=== PATIENT | male | born 1955 | race Caucasian/White ===

== ENCOUNTER → 2022-04-14 10:01 | Outpatient (CLI) | payer MEDICARE, SELFPAY | PROVIDERS: Referring Provider Internal Medicine Cardiovascular Disease; Visit Provider Internal Medicine Cardiovascular Disease | DX: R94.31 Abnormal electrocardiogram [ECG] [EKG] (principal) ==

== ENCOUNTER → 2022-07-02 09:02 | Outpatient (CLI) | payer MEDICARE, SELFPAY ==
--- NOTE | 2022-07-02 09:06 | DI.ECHO.S_ITS ---
[facility] +---------+ : : [address] : [address] [place] : : : : [id number] : : : : Phone: [phone]+ Echocardiogram Report + + :Name: WEST MEDINA Study Date: 07/02/2022 Height: 67 in : :[facility] ReadingLocation: Weight: 121 lb : : Gender: Male BSA: 1.6 m2 : :: 1955 Age: 66 yrs BP: 115/80 mmHg: :Reason For Study: Pronlonged Q-T Interval : :Ordering Physician: XAVIER, : :TITUS Performed By: Lon Taylor : :Referring: TITUS FRY : + + Interpretation Summary 1) Normal left ventricular thickness, size, wall motion, and systolic function (EF 55-60%). 2) Normal right ventricular size and function. 3) No significant valvular abnormalities. 4) No prior Echo available for comparison. Procedure: A two-dimensional transthoracic echocardiogram with color flow and Doppler was performed. The study quality was technically adequate. There is no prior echocardiogram noted for this patient. Left Ventricle: The left ventricle is normal in size and wall thickness. Left ventricular systolic function is normal. The ejection fraction is estimated to be 55-60%. There are no focal wall motion abnormalities. Diastolic parameters suggest a relaxation abnormality of the left ventricle, consistent with probable normal filling pressures. Right Ventricle: The right ventricle is normal in size and function. Atria: Both atria are normal in size. The interatrial septum grossly appears intact with no obvious evidence for an atrial septal defect. Mitral Valve: The mitral valve is normal in structure and function. There is no mitral regurgitation noted. Aortic Valve: The aortic valve is normal in structure and function. There is no aortic valve stenosis. No aortic regurgitation is present. Tricuspid Valve: The tricuspid valve is normal in structure and function. There is trace tricuspid regurgitation. Pulmonary artery pressures cannot be estimated because of the lack of a measurable TR jet velocity. Pulmonic Valve: The pulmonic valve is not well seen, but is grossly normal. There is no pulmonic valvular regurgitation. Great Vessels: The aortic root is normal size. The ascending aorta could not be visualized. The IVC is of normal diameter and collapses greater than 50% with a sniff. This suggests a low right atrial pressure of 3 mm Hg. Pericardium/ Pleura There is no pericardial effusion. There is no pleural effusion. MMode/2D Measurements & Calculations LVIDd: 4.6 cm LVOT diam: 2.3 cm LVIDs: 3.2 cm Ao root diam: 3.3 cm FS: 29.4 % IVSd: 0.87 cm LVPWd: 0.63 cm LV longo. diameter/BSA (cm/m^2): 2.8 LV sys. diameter/BSA (cm/m^2): 2.0 LA A2 area: 16.1 cm2 RA long axis: 4.3 cm LA A4 area: 14.4 cm2 RA area: 11.4 cm2 LA length (vol): 4.0 cm RA vol: 25.8 ml LA vol: 48.4 ml RA : 15.8 ml/m2 LA vol index: 29.6 ml/m2 TAPSE: 2.9 cm Doppler Measurements & Calculations Ao V2 max: 128.5 cm/sec LVOT Max Scottie: 112.1 cm/sec Ao V2 mean: 86.8 cm/sec LV V1 max P.0 mmHg Ao max P.6 mmHg LV V1 VTI: 21.3 cm Ao mean P.4 mmHg KATIE(I,D): 3.6 cm2 Ao V2 VTI: 24.3 cm KATIE(V,D): 3.5 cm2 sev ratio: 0.88 KATIE indexed to BSA (cm^2/m^2): 2.2 MV E max scottie: 76.7 cm/sec SV(LVOT): 86.4 ml MV A max scottie: 81.5 cm/sec MV E/A: 0.94 Med Peak E' Scottie: 7.1 cm/sec E/E' med: 10.9 Lat Peak E' Scottie: 7.5 cm/sec E/E' lat: 10.2 E/e' average: 10.5 MV dec time: 0.28 sec Reading Physician:02:29 PM
== END ==
PROVIDERS: Referring Provider Internal Medicine Cardiovascular Disease; Visit Provider Internal Medicine Cardiovascular Disease
DX: R94.31 Abnormal electrocardiogram [ECG] [EKG] (principal)
CPT/HCPCS: 93306

== ENCOUNTER 2023-05-05 13:35 | Emergency (ER) | payer MEDICARE, SELFPAY ==
[2023-05-05] VITALS (128 sets, daily range): BP systolic 74–131; BP diastolic 44–70; PULSE 48–74; RESP 11–40; TEMP 36.8; O2SAT 84–100; BMI 19.8
--- NOTE | 2023-05-05 14:10 | DI.CT.S_ITS ---
PROCEDURE: CT ANGIO CHEST ABDOMEN PELVIS INDICATIONS: weak, back pain acute on chronic, hypotensive TECHNIQUE: Precontrast 5 mm thick sections acquired from the lung apices to the iliac crests. After the administration of intravenous contrast, 2.5 mm thick sections again acquired from the lung apices to the iliac crests. Maximum intensity projection (MIP) oblique sagittal and coronal reformats were then acquired. For radiation dose reduction, the following was used: automated exposure control. COMPARISON: MRI 01/06/2023. FINDINGS: Image quality: Excellent. AORTA: Intramural hematoma: Absent Dissection: Absent Calcified and noncalcified plaques throughout the aorta and branching vessels. Moderate stenosis of the proximal left renal artery. Mild to moderate stenosis of the takeoff of the celiac trunk and superior mesenteric artery with normal opacification distally. Mild narrowing of the proximal left common iliac artery. Focal irregularities of the left external iliac artery with approximately 50 percent stenosis. CHEST: Lungs and pleura: No acute airspace opacities. Biapical pleuroparenchymal scarring. Upper lobe predominant centrilobular and paraseptal emphysematous changes. Mild bibasilar subsegmental atelectasis. Right lower lobe 3 millimeter nodule (6/154). Additional scattered pulmonary nodules measuring 3 millimeters or less. No pleural effusions or pneumothorax. Central and peripheral airways are patent and normal in caliber. Mediastinum: Heart size is normal. Mild coronary artery calcifications. No pericardial effusion. No mediastinal or hilar adenopathy by size criteria. Central pulmonary arteries are normal in size. Esophagus is normal in caliber. Small hiatal hernias. Bones and chest wall: No axillary adenopathy by size criteria. Thyroid gland is normal . No suspicious bony lesions. No vertebral body compression fractures. ABDOMEN: Solid organs: Liver is normal in size and enhancement. Gallbladder is mildly distended without calcified stone. . Biliary system is non dilated. Pancreas enhances normally. Spleen is normal in size and enhancement. No adrenal nodules. Both kidneys are normal in size and enhancement, without hydronephrosis. Renal subcentimeter hypodensities. Peritoneum and bowel: No free fluid or air. Bowel loops are normal in caliber and wall thickness. Nodes and vessels: No retroperitoneal or mesenteric adenopathy by size criteria. Inferior vena cava is normal in morphology. Miscellaneous: No ventral hernias. PELVIS: Genitourinary: Bladder wall thickness is normal. Miscellaneous: Small right inguinal hernia containing fat. No adenopathy. No ventral hernias. Bones: No suspicious bony lesions. Diffusely decreased osseous mineralization. Multilevel degenerative changes of the spine. Moderate compression deformity of L4 is stable compared to 01/06/2023. Mild anterior wedging of T12. Moderate anterior wedging of T6. IMPRESSION: 1. No aortic dissection or intramural hematoma. No acute aortic pathology. 2. Calcified and noncalcified plaques throughout the aorta and branching vessels. 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 3. Scattered pulmonary micro nodules measuring up to 3 millimeters. Per Fleischner criteria, patient is high risk, [address] is recommended, if patient is low risk, no follow-up CT is needed. Upper lobe predominant paraseptal and centrilobular emphysematous changes. 4. Degenerative changes of the spine and diffusely decreased osseous mineralization. Multiple compression deformities involving T6, T12 and L4. T12 and L4 stable compared to MRI 01/06/2023. 5. Additional findings as described above. Dictated by: Quoc Gonzales M.D. on 05/05/2023 at 15:08 Approved by: Quoc Gonzales M.D. on 05/05/2023 at 15:23
--- NOTE | 2023-05-05 14:11 | DI.RAD.S_ITS ---
PROCEDURE: XR CHEST 1V INDICATIONS: hypotension TECHNIQUE: One view of the chest was acquired. COMPARISON: [facility], CT, CT ANGIO CHEST ABDOMEN PELVIS, 05/05/2023, 14:27. FINDINGS: Surgical changes and devices: None. Lungs and pleura: Lungs are clear. No pleural effusions or pneumothorax. The lungs have emphysematous changes. Interstitial prominence is unchanged compared to the prior study and is likely chronic. Mediastinum: Mediastinal contours appear normal. Heart size is normal. Bones and chest wall: No suspicious bony lesions. Overlying soft tissues appear unremarkable. IMPRESSION: 1. No acute cardiopulmonary abnormality. 2. Chronic interstitial markings consistent with COPD Dictated by: Severiano Hernandez M.D. on 05/05/2023 at 15:59 Approved by: Severiano Hernandez M.D. on 05/05/2023 at 16:02
--- NOTE | 2023-05-05 14:12 | ED_ITS ---
HPI - Weakness <Anjana Tinoco DO - Last Filed: 05/06/23 09:50> General Chief complaint: Weakness Stated complaint: Weakness T-2 Time Seen by Provider: 05/05/23 14:10 Source: patient, EMS, RN notes reviewed and old records reviewed Mode of arrival: EMS Limitations: no limitations History of Present Illness HPI Narrative: This is a 67-year-old male with history of chronic methadone use, hypertension, BPH with complaint of weakness. Patient states he is had acute on chronic back pain today. He was sent from [facility] while at clinic where he receives his methadone because they noticed he was sort of walking off balance. The patient's blood pressure in the field with EMS was 70 systolic, 70-80 systolic here upon arrival. Patient denies any syncope today but states last night he went sat on the toilet and then in the morning woke up to his family knocking on the door to ask how long he would be. Patient states he was still seated on the toilet. Patient states he has not had any other episodes. He does feel little lightheaded. He denies any headache. No vision changes. No chest pain or pressure. No shortness of breath. No nausea or vomiting. He states he is chronic back pain that is a little bit worse today describes it as lower back. He denies any abdominal pain. Patient states pain sometimes radiates into the legs. Denies numbness, tingling or weakness. No loss of bowel or bladder control. No diarrhea constipation. No dysuria urgency or frequency. Patient states he is had prior back surgery and hernia repair. States daily medications are methadone, lisinopril, nifedipine and tamsulosin. He takes his blood pressure medications in the evening but somewhat irregularly. He states he did take them last night. Denies any drug allergies. He does use tobacco daily, no alcohol, no illicit. 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 Patient states he follows with primary care through the did while at clinic. He defers anything for pain. Related Data Allergies Allergy/AdvReac Type Severity Reaction Status Date / Time No Known Drug Allergies Allergy Verified 05/05/23 14:44 Review of Systems <Anjana Tinoco DO - Last Filed: 05/06/23 09:50> Review of Systems ROS Unobtainable: All systems reviewed & are unremarkable except as noted in HPI and below Patient History <Anjana Tinoco DO - Last Filed: 05/06/23 09:50> Social History Smoking Status: Current every day smoker Exam <Anjana Tinoco DO - Last Filed: 05/06/23 09:50> Narrative Exam Narrative: GEN: Thin male, alert and oriented x 3, patient appears to be in mild distress. No diaphoresis. No pallor. HEENT: Atraumatic, pupils are equal round reactive to light, extraocular movements are intact, nares are clear, there is no conjunctival pallor. Throat is clear without any exudates, erythema, tonsillar enlargement or uvular deviation HEART: Regular rate and rhythm without murmur, clicks, rubs. pulses are equal in upper and lower extremities LUNGS:Lungs clear to auscultation, no wheezes, rales, crackles, chest moves symmetrically ABD:bowel sounds normal, soft, non-tender, no guarding, rebound, rigidity, no masses noted, no hepatosplenomegaly, no pulsatile mass or bruit :No CVA tenderness MSCL: Non-tender, no muscle atrophy, muscles strength 5/5 upper and lower extremities, full range of motion. NEURO:CN 2-12 intact, sensation normal, SKIN: No rash, erythema or other skin changes noted. Initial Vital Signs Initial Vital Signs: Vital Signs Pulse Rate 67 05/05/23 13:59 Respiratory Rate 18 05/05/23 13:59 <Josr Horvath DO - Last Filed: 05/06/23 01:24> Initial Vital Signs Initial Vital Signs: Vital Signs Pulse Rate 67 05/05/23 13:59 Respiratory Rate 18 05/05/23 13:59 Procedures <Anjana Tinoco DO - Last Filed: 05/06/23 09:50> Central Line Placement Right IJ: Time of procedure: 18:27 Time Out Performed: Yes Patient Placed on Monitor/Pulse Ox: Yes MD Prep: mask, gown and gloves Central Line Prep: Povidone-Iodine 1%, Chlorhexidine scrub and sterile drapes applied Local Anesthetic: lidocaine 1% Amount of anesthesia used (mL): 4 Ultrasound Used for Placement: Yes Central Line Lumen Inserted: triple Post Procedure: sutured in place, good blood return, all ports aspirated, flushed, capped, sterile dressing applied and line stabilization device Post Procedure X-Ray: tip of catheter in good position and no pneumothorax seen Patient Tolerated Procedure: Well and No complications Course <Anjana Tinoco, DO - Last Filed: 05/06/23 09:50> Orders Ordered: Discontinued Medications Sodium Chloride (Normal Saline 0.9%) 1,000 mls @ 1,000 mls/hr IV BOLUS ONE Stop: 05/05/23 15:09 Last Infusion: 05/05/23 15:15 Dose: 0 mls/hr Documented By: Admin: 05/05/23 14:35 Dose: 1,000 mls/hr Documented By: RB Sodium Chloride (Normal Saline 0.9%) 1,000 mls @ 1,000 mls/hr IV BOLUS ONE Stop: 05/05/23 17:14 Last Admin: 05/05/23 16:22 Dose: Not Given Documented By: RB Ceftriaxone Sodium 2,000 mg/ (Sodium Chloride) 100 mls @ 200 mls/hr IV NOW ONE Stop: 05/05/23 16:21 Last Infusion: 05/05/23 17:04 Dose: 0 mls/hr Documented By: Admin: 05/05/23 16:28 Dose: 200 mls/hr Documented By: RB Sodium Chloride (Normal Saline 0.9%) 1,000 mls @ 150 mls/hr IV CONT ZULEIKA Last Infusion: 05/05/23 23:25 Dose: 0 mls/hr Documented By: Admin: 05/05/23 16:41 Dose: 150 mls/hr Documented By: RB Sodium Bicarbonate 150 meq/ (Dextrose) 1,150 mls @ 150 mls/hr IV CONT ZULEIKA Last Admin: 05/05/23 19:18 Dose: 150 mls/hr Documented By: RB NOREPINEPHRINE BITARTRATE/D5W (Levophed) 4 mg in 250 mls @ 22.878 mls/hr IV TITRATE ZULEIKA; Protocol Last Titration: 05/05/23 19:28 Dose: 0.1 mcg/kg/min, 22.878 mls/hr Documented By: Admin: 05/05/23 17:37 Dose: 0.1 mcg/kg/min, 22.878 mls/hr Documented By: RB Lidocaine HCl (Lidocaine 2% (Glydo) 6 Ml Gel) 6 ml TOP NOW ONE Stop: 05/05/23 15:17 Last Admin: 05/05/23 15:59 Dose: 6 ml Documented By: RB Lorazepam (Lorazepam 2 Mg/Ml Inj) 0.5 mg IV NOW ONE Stop: 05/05/23 16:16 Last Admin: 05/05/23 16:22 Dose: Not Given Documented By: RB Vital Signs Vital signs: Vital Signs - 8 hr 05/06/23 01:49 Temperature 97.4 F L Pulse Rate 58 L Respiratory Rate 16 Blood Pressure 134/72 Pulse Oximetry 97 Oxygen Flow Rate 4 <Josr Horvath, DO - Last Filed: 05/06/23 01:24> Orders Ordered: Discontinued Medications Sodium Chloride (Normal Saline 0.9%) 1,000 mls @ 1,000 mls/hr IV BOLUS ONE Stop: 05/05/23 15:09 Last Infusion: 05/05/23 15:15 Dose: 0 mls/hr Documented By: Admin: 05/05/23 14:35 Dose: 1,000 mls/hr Documented By: RB Sodium Chloride (Normal Saline 0.9%) 1,000 mls @ 1,000 mls/hr IV BOLUS ONE Stop: 05/05/23 17:14 Last Admin: 05/05/23 16:22 Dose: Not Given Documented By: RB Ceftriaxone Sodium 2,000 mg/ (Sodium Chloride) 100 mls @ 200 mls/hr IV NOW ONE Stop: 05/05/23 16:21 Last Infusion: 05/05/23 17:04 Dose: 0 mls/hr Documented By: Admin: 05/05/23 16:28 Dose: 200 mls/hr Documented By: RB Sodium Chloride (Normal Saline 0.9%) 1,000 mls @ 150 mls/hr IV CONT ZULEIKA Last Infusion: 05/05/23 23:25 Dose: 0 mls/hr Documented By: Admin: 05/05/23 16:41 Dose: 150 mls/hr Documented By: RB Sodium Bicarbonate 150 meq/ (Dextrose) 1,150 mls @ 150 mls/hr IV CONT ZULEIKA Last Admin: 05/05/23 19:18 Dose: 150 mls/hr Documented By: RB NOREPINEPHRINE BITARTRATE/D5W (Levophed) 4 mg in 250 mls @ 22.878 mls/hr IV TITRATE ZULEIKA; Protocol Last Titration: 05/05/23 19:28 Dose: 0.1 mcg/kg/min, 22.878 mls/hr Documented By: Admin: 05/05/23 17:37 Dose: 0.1 mcg/kg/min, 22.878 mls/hr Documented By: RB Lidocaine HCl (Lidocaine 2% (Glydo) 6 Ml Gel) 6 ml TOP NOW ONE Stop: 05/05/23 15:17 Last Admin: 05/05/23 15:59 Dose: 6 ml Documented By: RB Lorazepam (Lorazepam 2 Mg/Ml Inj) 0.5 mg IV NOW ONE Stop: 05/05/23 16:16 Last Admin: 05/05/23 16:22 Dose: Not Given Documented By: RB Vital Signs Vital signs: Vital Signs - 8 hr 05/06/23 01:49 Temperature 97.4 F L Pulse Rate 58 L Respiratory Rate 16 Blood Pressure 134/72 Pulse Oximetry 97 Oxygen Flow Rate 4 MDM - Weakness <Anjana Tinoco, - Last Filed: 05/06/23 09:50> Lab Data 05/05/23 14:17 05/05/23 23:20 Labs: Lab Results 05/05/23 05/05/23 05/05/23 Range/Units 14:17 14:17 14:17 WBC (4.5-11.0) X10^3/uL RBC (4.5-5.9) X10^6/uL Hgb (13.5-17.5) g/dL Hct (41-53) % MCV (80-100) fL MCH (26-34) PG MCHC (30-36) % RDW (11.6-14.8) % Plt Count (150-400) X10^3/uL Neut % (Auto) (50-75) % Lymph % (Auto) (25-40) % [place] % (Auto) (3-14) % Eos % (Auto) (2-4) % Baso % (Auto) (0-2) % Neut # (Auto) (7009-1313) /uL Lymph # (Auto) (5976-9508) /uL [place] # (Auto) (0-900) /uL Eos # (Auto) (0-450) /uL Baso # (Auto) (0-100) /uL PT 12.8 H (10.1-12.7) SECONDS INR 1.1 (0.9-1.3) APTT 37 H (26-36) SECONDS ABG pH (7.35-7.45) ABG pCO2 (35-45) mmHg ABG pO2 (80-100) mmHg ABG HCO3 (23-27) mmol/L ABG Total CO2 (23-27) mmol/L ABG O2 Saturation (95-100) % ABG Base Excess (-2-3) mmol/L FiO2 Sodium (137-145) mmol/L Potassium (3.4-5.1) mmol/L Chloride (98-107) mmol/L Carbon Dioxide (22-32) mmol/L BUN (9-20) mg/dL Creatinine (0.66-1.25) mg/dL Estimated GFR (>60) mL/min BUN/Creatinine Ratio (6-22) Glucose (80-110) mg/dL Lactate 1.6 (0.7-2.1) mmol/L Calcium (8.4-10.2) mg/dL Total Bilirubin (0.2-1.3) mg/dL AST (17-59) IU/L ALT (<50) IU/L Alkaline Phosphatase (38-126) U/L Total Creatine Kinase (55-170) U/L Troponin I (0.01-0.034) ng/mL NT-Pro-B Natriuret Pep (<125) pg/mL Total Protein (6.3-8.2) g/dL Albumin (3.5-5.0) g/dL Globulin (1.7-4.1) g/dL Albumin/Globulin Ratio (1.0-2.8) Lipase (23-300) U/L Procalcitonin 0.52 H (<0.5) ng/mL Urine Color Urine Appearance Urine pH (4.5-8.0) Ur Specific [place] (1.000-1.035) Urine Protein (Negative) Urine Glucose (UA) (Negative) g/dL Urine Ketones (NEGATIVE) Urine Occult Blood (Negative) Urine Nitrate (Negative) Urine Bilirubin (NEGATIVE) Urine Urobilinogen (0.2) E.U./dL Ur Leukocyte Esterase (NEGATIVE) Urine RBC (0-5/HPF) Urine WBC (0-5/HPF) Ur Squamous Epith Cells (0-5/HPF) Ur Transition Epith Cell (0-5/HPF) Other Crystals Urine Bacteria (None) Hyaline Casts (None) Granular Casts (None) Urine Mucus (Negative) Ur Culture Indicated? Ur Random Sodium (30-90) mmol/L Urine Creatinine mg/dL U Opiates 300ng/mL cut (Negative) Ur Oxycodone Screen (Negative) Urine Methadone Screen (Negative) Ur Barbiturates Screen (Negative) U Tricyclic Antidepress (Negative) Ur Phencyclidine Scrn (Negative) Ur Amphetamines Screen (Negative) U Methamphetamines Scrn (Negative) Ur MDMA Scrn (Ecstasy) (Negative) U Benzodiazepines Scrn (Negative) Urine Cocaine Screen (Negative) U Marijuana (THC) Screen (Negative) 05/05/23 05/05/23 05/05/23 Range/Units 14:17 14:17 15:16 WBC 13.4 H (4.5-11.0) X10^3/uL RBC 3.74 L (4.5-5.9) X10^6/uL Hgb 11.7 L (13.5-17.5) g/dL Hct 34.7 L (41-53) % MCV 92.9 (80-100) fL MCH 31.3 (26-34) PG MCHC 33.7 (30-36) % RDW 14.0 (11.6-14.8) % Plt Count 174 (150-400) X10^3/uL Neut % (Auto) 78.9 H (50-75) % Lymph % (Auto) 12.7 L (25-40) % [place] % (Auto) 7.4 (3-14) % Eos % (Auto) 0.8 L (2-4) % Baso % (Auto) 0.2 (0-2) % Neut # (Auto) 74226 H (5734-7069) /uL Lymph # (Auto) 1700 (0261-0484) /uL [place] # (Auto) 1000 H (0-900) /uL Eos # (Auto) 100 (0-450) /uL Baso # (Auto) 0 (0-100) /uL PT (10.1-12.7) SECONDS INR (0.9-1.3) APTT (26-36) SECONDS ABG pH 7.34 L (7.35-7.45) ABG pCO2 39.4 (35-45) mmHg ABG pO2 119 H (80-100) mmHg ABG HCO3 21 L (23-27) mmol/L ABG Total CO2 22 L (23-27) mmol/L ABG O2 Saturation 98 (95-100) % ABG Base Excess -5.0 L (-2-3) mmol/L FiO2 60 Sodium 137 (137-145) mmol/L Potassium 3.6 (3.4-5.1) mmol/L Chloride 97 L (98-107) mmol/L Carbon Dioxide 27 (22-32) mmol/L BUN 76 H (9-20) mg/dL Creatinine 4.65 H (0.66-1.25) mg/dL Estimated GFR 13 L (>60) mL/min BUN/Creatinine Ratio 16.3 (6-22) Glucose 110 (80-110) mg/dL Lactate (0.7-2.1) mmol/L Calcium 8.9 (8.4-10.2) mg/dL Total Bilirubin 0.4 (0.2-1.3) mg/dL AST 219 H (17-59) IU/L ALT 34 (<50) IU/L Alkaline Phosphatase 121 (38-126) U/L Total Creatine Kinase 96297 H (55-170) U/L Troponin I < 0.012 (0.01-0.034) ng/mL NT-Pro-B Natriuret Pep 412 H (<125) pg/mL Total Protein 7.8 (6.3-8.2) g/dL Albumin 4.5 (3.5-5.0) g/dL Globulin 3.3 (1.7-4.1) g/dL Albumin/Globulin Ratio 1.4 (1.0-2.8) Lipase 33 (23-300) U/L Procalcitonin (<0.5) ng/mL Urine Color Urine Appearance Urine pH (4.5-8.0) Ur Specific [place] (1.000-1.035) Urine Protein (Negative) Urine Glucose (UA) (Negative) g/dL Urine Ketones (NEGATIVE) Urine Occult Blood (Negative) Urine Nitrate (Negative) Urine Bilirubin (NEGATIVE) Urine Urobilinogen (0.2) E.U./dL Ur Leukocyte Esterase (NEGATIVE) Urine RBC (0-5/HPF) Urine WBC (0-5/HPF) Ur Squamous Epith Cells (0-5/HPF) Ur Transition Epith Cell (0-5/HPF) Other Crystals Urine Bacteria (None) Hyaline Casts (None) Granular Casts (None) Urine Mucus (Negative) Ur Culture Indicated? Ur Random Sodium (30-90) mmol/L Urine Creatinine mg/dL U Opiates 300ng/mL cut (Negative) Ur Oxycodone Screen (Negative) Urine Methadone Screen (Negative) Ur Barbiturates Screen (Negative) U Tricyclic Antidepress (Negative) Ur Phencyclidine Scrn (Negative) Ur Amphetamines Screen (Negative) U Methamphetamines Scrn (Negative) Ur MDMA Scrn (Ecstasy) (Negative) U Benzodiazepines Scrn (Negative) Urine Cocaine Screen (Negative) U Marijuana (THC) Screen (Negative) 05/05/23 05/05/23 05/05/23 Range/Units 16:15 16:15 16:47 WBC (4.5-11.0) X10^3/uL RBC (4.5-5.9) X10^6/uL Hgb (13.5-17.5) g/dL Hct (41-53) % MCV (80-100) fL MCH (26-34) PG MCHC (30-36) % RDW (11.6-14.8) % Plt Count (150-400) X10^3/uL Neut % (Auto) (50-75) % Lymph % (Auto) (25-40) % [place] % (Auto) (3-14) % Eos % (Auto) (2-4) % Baso % (Auto) (0-2) % Neut # (Auto) (9137-5523) /uL Lymph # (Auto) (4193-1886) /uL [place] # (Auto) (0-900) /uL Eos # (Auto) (0-450) /uL Baso # (Auto) (0-100) /uL PT (10.1-12.7) SECONDS INR (0.9-1.3) APTT (26-36) SECONDS ABG pH 7.29 L* (7.35-7.45) ABG pCO2 47.7 H (35-45) mmHg ABG pO2 61 L (80-100) mmHg ABG HCO3 23 (23-27) mmol/L ABG Total CO2 24 (23-27) mmol/L ABG O2 Saturation 88 L (95-100) % ABG Base Excess -4.0 L (-2-3) mmol/L FiO2 21 Sodium (137-145) mmol/L Potassium (3.4-5.1) mmol/L Chloride (98-107) mmol/L Carbon Dioxide (22-32) mmol/L BUN (9-20) mg/dL Creatinine (0.66-1.25) mg/dL Estimated GFR (>60) mL/min BUN/Creatinine Ratio (6-22) Glucose (80-110) mg/dL Lactate (0.7-2.1) mmol/L Calcium (8.4-10.2) mg/dL Total Bilirubin (0.2-1.3) mg/dL AST (17-59) IU/L ALT (<50) IU/L Alkaline Phosphatase (38-126) U/L Total Creatine Kinase (55-170) U/L Troponin I (0.01-0.034) ng/mL NT-Pro-B Natriuret Pep (<125) pg/mL Total Protein (6.3-8.2) g/dL Albumin (3.5-5.0) g/dL Globulin (1.7-4.1) g/dL Albumin/Globulin Ratio (1.0-2.8) Lipase (23-300) U/L Procalcitonin (<0.5) ng/mL Urine Color Yellow Urine Appearance Clear Urine pH 5.5 (4.5-8.0) Ur Specific [place] 1.015 (1.000-1.035) Urine Protein 1+ H (Negative) Urine Glucose (UA) Negative (Negative) g/dL Urine Ketones Negative (NEGATIVE) Urine Occult Blood 3+ H (Negative) Urine Nitrate Negative (Negative) Urine Bilirubin Negative (NEGATIVE) Urine Urobilinogen 0.2 (0.2) E.U./dL Ur Leukocyte Esterase Negative (NEGATIVE) Urine RBC 1-5/hpf (0-5/HPF) Urine WBC 1-5/hpf (0-5/HPF) Ur Squamous Epith Cells 0-1 /hpf (0-5/HPF) Ur Transition Epith Cell 0-1/hpf (0-5/HPF) Other Crystals Few amorphous Urine Bacteria Occasional (0-1) (None) Hyaline Casts 1-5/lpf (None) Granular Casts 1-5/lpf (None) Urine Mucus 1+ H (Negative) Ur Culture Indicated? Cult not indicated Ur Random Sodium 59 (30-90) mmol/L Urine Creatinine 70.2 mg/dL U Opiates 300ng/mL cut (Negative) Ur Oxycodone Screen (Negative) Urine Methadone Screen (Negative) Ur Barbiturates Screen (Negative) U Tricyclic Antidepress (Negative) Ur Phencyclidine Scrn (Negative) Ur Amphetamines Screen (Negative) U Methamphetamines Scrn (Negative) Ur MDMA Scrn (Ecstasy) (Negative) U Benzodiazepines Scrn (Negative) Urine Cocaine Screen (Negative) U Marijuana (THC) Screen (Negative) 05/05/23 05/05/23 05/05/23 Range/Units 18:34 18:57 18:57 WBC (4.5-11.0) X10^3/uL RBC (4.5-5.9) X10^6/uL Hgb (13.5-17.5) g/dL Hct (41-53) % MCV (80-100) fL MCH (26-34) PG MCHC (30-36) % RDW (11.6-14.8) % Plt Count (150-400) X10^3/uL Neut % (Auto) (50-75) % Lymph % (Auto) (25-40) % [place] % (Auto) (3-14) % Eos % (Auto) (2-4) % Baso % (Auto) (0-2) % Neut # (Auto) (0783-0183) /uL Lymph # (Auto) (7764-7097) /uL [place] # (Auto) (0-900) /uL Eos # (Auto) (0-450) /uL Baso # (Auto) (0-100) /uL PT (10.1-12.7) SECONDS INR (0.9-1.3) APTT (26-36) SECONDS ABG pH (7.35-7.45) ABG pCO2 (35-45) mmHg ABG pO2 (80-100) mmHg ABG HCO3 (23-27) mmol/L ABG Total CO2 (23-27) mmol/L ABG O2 Saturation (95-100) % ABG Base Excess (-2-3) mmol/L FiO2 Sodium 137 (137-145) mmol/L Potassium 3.8 (3.4-5.1) mmol/L Chloride 105 (98-107) mmol/L Carbon Dioxide 25 (22-32) mmol/L BUN 63 H (9-20) mg/dL Creatinine 3.82 H (0.66-1.25) mg/dL Estimated GFR 16 L (>60) mL/min BUN/Creatinine Ratio 16.5 (6-22) Glucose 106 (80-110) mg/dL Lactate (0.7-2.1) mmol/L Calcium 7.6 L (8.4-10.2) mg/dL Total Bilirubin (0.2-1.3) mg/dL AST (17-59) IU/L ALT (<50) IU/L Alkaline Phosphatase (38-126) U/L Total Creatine Kinase 9534 H (55-170) U/L Troponin I (0.01-0.034) ng/mL NT-Pro-B Natriuret Pep (<125) pg/mL Total Protein (6.3-8.2) g/dL Albumin (3.5-5.0) g/dL Globulin (1.7-4.1) g/dL Albumin/Globulin Ratio (1.0-2.8) Lipase (23-300) U/L Procalcitonin (<0.5) ng/mL Urine Color Urine Appearance Urine pH (4.5-8.0) Ur Specific [place] (1.000-1.035) Urine Protein (Negative) Urine Glucose (UA) (Negative) g/dL Urine Ketones (NEGATIVE) Urine Occult Blood (Negative) Urine Nitrate (Negative) Urine Bilirubin (NEGATIVE) Urine Urobilinogen (0.2) E.U./dL Ur Leukocyte Esterase (NEGATIVE) Urine RBC (0-5/HPF) Urine WBC (0-5/HPF) Ur Squamous Epith Cells (0-5/HPF) Ur Transition Epith Cell (0-5/HPF) Other Crystals Urine Bacteria (None) Hyaline Casts (None) Granular Casts (None) Urine Mucus (Negative) Ur Culture Indicated? Ur Random Sodium (30-90) mmol/L Urine Creatinine mg/dL U Opiates 300ng/mL cut Negative (Negative) Ur Oxycodone Screen Negative (Negative) Urine Methadone Screen Positive H (Negative) Ur Barbiturates Screen Negative (Negative) U Tricyclic Antidepress Negative (Negative) Ur Phencyclidine Scrn Negative (Negative) Ur Amphetamines Screen Positive H (Negative) U Methamphetamines Scrn Positive H (Negative) Ur MDMA Scrn (Ecstasy) Negative (Negative) U Benzodiazepines Scrn Negative (Negative) Urine Cocaine Screen Positive H (Negative) U Marijuana (THC) Screen Negative (Negative) 05/05/23 Range/Units 23:20 WBC (4.5-11.0) X10^3/uL RBC (4.5-5.9) X10^6/uL Hgb (13.5-17.5) g/dL Hct (41-53) % MCV (80-100) fL MCH (26-34) PG MCHC (30-36) % RDW (11.6-14.8) % Plt Count (150-400) X10^3/uL Neut % (Auto) (50-75) % Lymph % (Auto) (25-40) % [place] % (Auto) (3-14) % Eos % (Auto) (2-4) % Baso % (Auto) (0-2) % Neut # (Auto) (0662-5604) /uL Lymph # (Auto) (0894-1741) /uL [place] # (Auto) (0-900) /uL Eos # (Auto) (0-450) /uL Baso # (Auto) (0-100) /uL PT (10.1-12.7) SECONDS INR (0.9-1.3) APTT (26-36) SECONDS ABG pH (7.35-7.45) ABG pCO2 (35-45) mmHg ABG pO2 (80-100) mmHg ABG HCO3 (23-27) mmol/L ABG Total CO2 (23-27) mmol/L ABG O2 Saturation (95-100) % ABG Base Excess (-2-3) mmol/L FiO2 Sodium 137 (137-145) mmol/L Potassium 3.5 (3.4-5.1) mmol/L Chloride 102 (98-107) mmol/L Carbon Dioxide 28 (22-32) mmol/L BUN 56 H (9-20) mg/dL Creatinine 3.26 H (0.66-1.25) mg/dL Estimated GFR 20 L (>60) mL/min BUN/Creatinine Ratio 17.2 (6-22) Glucose 164 H (80-110) mg/dL Lactate (0.7-2.1) mmol/L Calcium 7.3 L (8.4-10.2) mg/dL Total Bilirubin (0.2-1.3) mg/dL AST (17-59) IU/L ALT (<50) IU/L Alkaline Phosphatase (38-126) U/L Total Creatine Kinase 7570 H (55-170) U/L Troponin I (0.01-0.034) ng/mL NT-Pro-B Natriuret Pep (<125) pg/mL Total Protein (6.3-8.2) g/dL Albumin (3.5-5.0) g/dL Globulin (1.7-4.1) g/dL Albumin/Globulin Ratio (1.0-2.8) Lipase (23-300) U/L Procalcitonin (<0.5) ng/mL Urine Color Urine Appearance Urine pH (4.5-8.0) Ur Specific [place] (1.000-1.035) Urine Protein (Negative) Urine Glucose (UA) (Negative) g/dL Urine Ketones (NEGATIVE) Urine Occult Blood (Negative) Urine Nitrate (Negative) Urine Bilirubin (NEGATIVE) Urine Urobilinogen (0.2) E.U./dL Ur Leukocyte Esterase (NEGATIVE) Urine RBC (0-5/HPF) Urine WBC (0-5/HPF) Ur Squamous Epith Cells (0-5/HPF) Ur Transition Epith Cell (0-5/HPF) Other Crystals Urine Bacteria (None) Hyaline Casts (None) Granular Casts (None) Urine Mucus (Negative) Ur Culture Indicated? Ur Random Sodium (30-90) mmol/L Urine Creatinine mg/dL U Opiates 300ng/mL cut (Negative) Ur Oxycodone Screen (Negative) Urine Methadone Screen (Negative) Ur Barbiturates Screen (Negative) U Tricyclic Antidepress (Negative) Ur Phencyclidine Scrn (Negative) Ur Amphetamines Screen (Negative) U Methamphetamines Scrn (Negative) Ur MDMA Scrn (Ecstasy) (Negative) U Benzodiazepines Scrn (Negative) Urine Cocaine Screen (Negative) U Marijuana (THC) Screen (Negative) Point of Care Testing Glucose POC 108 Imaging Data CTa chest/abd/pelvis: Radiologist Impression: [address] [address] [address] Scan Report Signed Patient: Jovani De La Vega MR#: [id number] : 1955 Acct:[id number] Age/Sex: 67 / M Date of Service: 05/05/23 Loc: ED Accession Number: [id number] ?? Procedure: CT angio chest abdomen pelvis Ordering Provider: Anjana Tinoco D.O. PROCEDURE:? CT ANGIO CHEST ABDOMEN PELVIS ? INDICATIONS:? weak, back pain acute on chronic, hypotensive ? TECHNIQUE:? Precontrast 5 mm thick sections acquired from the lung apices to the iliac crests.? After the administration of intravenous contrast, 2.5 mm thick sections again acquired from the lung apices to the iliac crests.? Maximum intensity projection (MIP) oblique sagittal and coronal reformats were then acquired.? For radiation dose reduction, the following was used:? automated exposure control.? ? COMPARISON:? MRI 01/06/2023. ? FINDINGS:? Image quality:? Excellent.? ? AORTA:? Intramural hematoma:? Absent ? Dissection:? Absent ? Calcified and noncalcified plaques throughout the aorta and branching vessels.? Moderate stenosis of the proximal left renal artery.? Mild to moderate stenosis of the takeoff of the celiac trunk and superior mesenteric artery with normal opacification distally.? Mild narrowing of the proximal left common iliac artery.? Focal irregularities of the left external iliac artery with approximately 50 percent stenosis. ? CHEST:? Lungs and pleura:? No acute airspace opacities.? Biapical pleuroparenchymal scarring.? Upper lobe predominant centrilobular and paraseptal emphysematous changes.? Mild bibasilar subsegmental atelectasis.? Right lower lobe 3 millimeter nodule (6/154).? Additional scattered pulmonary nodules measuring 3 millimeters or less.? No pleural effusions or pneumothorax.? Central and peripheral airways are patent and normal in caliber.? ? Mediastinum:? Heart size is normal.? Mild coronary artery calcifications.? No pericardial effusion.? No mediastinal or hilar adenopathy by size criteria.? Central pulmonary arteries are normal in size.? Esophagus is normal in caliber.? Small hiatal hernias.? ? Bones and chest wall:? No axillary adenopathy by size criteria.? Thyroid gland is normal .? No suspicious bony lesions.? No vertebral body compression fractures.? ? ? ABDOMEN:? ? Solid organs:? Liver is normal in size and enhancement.? Gallbladder is mildly distended without calcified stone. .? Biliary system is non dilated.? Pancreas enhances normally.? Spleen is normal in size and enhancement.? No adrenal nodules.? Both kidneys are normal in size and enhancement, without hydronephrosis.? Renal subcentimeter hypodensities. ? Peritoneum and bowel:? No free fluid or air.? Bowel loops are normal in caliber and wall thickness.? ? Nodes and vessels:? No retroperitoneal or mesenteric adenopathy by size criteria.? Inferior vena cava is normal in morphology.? ? Miscellaneous:? No ventral hernias.? ? ? PELVIS:? Genitourinary:? Bladder wall thickness is normal.? ? Miscellaneous:? Small right inguinal hernia containing fat.? No adenopathy.? No ventral hernias.? ? Bones:? No suspicious bony lesions.? Diffusely decreased osseous mineralization.? Multilevel degenerative changes of the spine.? Moderate compression deformity of L4 is stable compared to 01/06/2023.? Mild anterior wedging of T12.? Moderate anterior wedging of T6. ? ? IMPRESSION:? ? 1. No aortic dissection or intramural hematoma.? No acute aortic pathology. 2. Calcified and noncalcified plaques throughout the aorta and branching vessels.? 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 3. Scattered pulmonary micro nodules measuring up to 3 millimeters.? Per Fleischner criteria, patient is high risk, [address] is recommended, if patient is low risk, no follow-up CT is needed.? Upper lobe predominant paraseptal and centrilobular emphysematous changes. 4. Degenerative changes of the spine and diffusely decreased osseous mineralization.? Multiple compression deformities involving T6, T12 and L4.? T12 and L4 stable compared to MRI 01/06/2023. 5. Additional findings as described above. ? Dictated by: Quoc Gonzales M.D. on 05/05/2023 at 15:08 ? ? Approved by: Quoc Gonzales M.D. on 05/05/2023 at 15:23?? ECG Data Attestation: I personally reviewed and interpreted this ECG as follows: Prior ECG tracings: not available for review Interpretation: Sinus rhythm rate of 68 TX 128 QRS of [address] No [address] elevation depression noted. No priors for comparison. MDM Narrative Medical decision making narrative: 67-year-old male presents with weakness, he describes a possible syncopal episode last night while seated on the toilet he states he woke up on the toilet but was still seated. Patient is hypotensive in the field with EMS has had about 500 mL of fluid still in the 80 systolic range on arrival. Patient does note he has some increased acute on chronic back pain. Pain does not radiate to the chest or abdomen. Patient is on medications that would want his cardiac response taking nifedipine daily, he is on tamsulosin, lisinopril but states normally takes these in the evening although it regularly. Patient had 2 L of fluid with minimal improvement of pressure, he had questionable hypoxia had initial ABG but was on 9 L. pH was 7.37 with a CO2 of 39 and a PO2 of 119 and a bicarb of 21. Patient is sometimes a little bit sleepy he denies any other ingestions. Labs show acute renal failure, dehydration and rhabdomyolysis with a CK of 14,000 a creatinine of 4.6 and a BUN of 76 no electrolyte abnormalities at this time. Patient has a mild leukocytosis. No significant anemia. Procalcitonin elevated but this could be secondary to renal failure. Patient did have CT angio to evaluate for possible aneurysm as he stated he had significant worsening of chronic back pain. CT angio does not show any clear source of change. Patient had about 200 mL in his bladder with catheterization in his had decent urine output greater than 50 mL/hour. UA does not show any obvious signs of infection patient was covered with a dose of Rocephin. Patient continued to have questionable hypoxia, was put on room air repeat ABG on room air after 15 minute shows a pH of 7.28 pCO2 of 47 PaO2 of 61 with a bicarb of 22. Patient has questionable in his hypoxia right at the level so was placed on BiPAP as he does have an increase in his CO2 what seems to be more respiratory driven then metabolic. Spoke with Nephrology at [facility], they recommend bicarb drip, 1000 mL of D5 with 3 amps 150 per hour. They agree with plan for nor epi for hypotension as needed, continue with aggressive fluid resuscitation. If patient is becoming fluid overloaded has a worsening renal function or other changes they do recommend transfer if it is continuing to improve they feel patient would be appropriate to stay here. Patient had central line placed for access. Blood pressure has improved with nor epi. Spoke with Dr. Santiago, hospitalist, would like for repeat BNP if renal function is improving would feel would likely be appropriate here. Agrees with current plan. Patient's BNP and CK were sent, renal function is improving, CK is improving but patient is little bit hypoxic. Hospitalist would prefer for transfer if patient becomes increasingly hypoxic they do not have a way to diurese the patient. Patient signed out to Dr. Horvath. Dr horvath: Received turned over. Reviewed patient's history and physical and workup up to this point. Patient's kidney function continues to improve. CK continues to decrease. He is still on a bicarb drip. He is not clinically fluid overloaded. Patient has been on BiPAP and tolerating this very well. He is producing urine. I did discuss the case with Dr. lemus hospitalist at [facility] who accepts the patient in transfer. Patient does require transfer for higher level of care to include capability of dialysis if he were to need this. He is stable for transport. <Josr Horvath, - Last Filed: 05/06/23 01:24> Lab Data Labs: Lab Results 05/05/23 05/05/23 05/05/23 Range/Units 14:17 14:17 14:17 WBC (4.5-11.0) X10^3/uL RBC (4.5-5.9) X10^6/uL Hgb (13.5-17.5) g/dL Hct (41-53) % MCV (80-100) fL MCH (26-34) PG MCHC (30-36) % RDW (11.6-14.8) % Plt Count (150-400) X10^3/uL Neut % (Auto) (50-75) % Lymph % (Auto) (25-40) % [place] % (Auto) (3-14) % Eos % (Auto) (2-4) % Baso % (Auto) (0-2) % Neut # (Auto) (1545-6009) /uL Lymph # (Auto) (8536-3099) /uL [place] # (Auto) (0-900) /uL Eos # (Auto) (0-450) /uL Baso # (Auto) (0-100) /uL PT 12.8 H (10.1-12.7) SECONDS INR 1.1 (0.9-1.3) APTT 37 H (26-36) SECONDS ABG pH (7.35-7.45) ABG pCO2 (35-45) mmHg ABG pO2 (80-100) mmHg ABG HCO3 (23-27) mmol/L ABG Total CO2 (23-27) mmol/L ABG O2 Saturation (95-100) % ABG Base Excess (-2-3) mmol/L FiO2 Sodium (137-145) mmol/L Potassium (3.4-5.1) mmol/L Chloride (98-107) mmol/L Carbon Dioxide (22-32) mmol/L BUN (9-20) mg/dL Creatinine (0.66-1.25) mg/dL Estimated GFR (>60) mL/min BUN/Creatinine Ratio (6-22) Glucose (80-110) mg/dL Lactate 1.6 (0.7-2.1) mmol/L Calcium (8.4-10.2) mg/dL Total Bilirubin (0.2-1.3) mg/dL AST (17-59) IU/L ALT (<50) IU/L Alkaline Phosphatase (38-126) U/L Total Creatine Kinase (55-170) U/L Troponin I (0.01-0.034) ng/mL NT-Pro-B Natriuret Pep (<125) pg/mL Total Protein (6.3-8.2) g/dL Albumin (3.5-5.0) g/dL Globulin (1.7-4.1) g/dL Albumin/Globulin Ratio (1.0-2.8) Lipase (23-300) U/L Procalcitonin 0.52 H (<0.5) ng/mL Urine Color Urine Appearance Urine pH (4.5-8.0) Ur Specific [place] (1.000-1.035) Urine Protein (Negative) Urine Glucose (UA) (Negative) g/dL Urine Ketones (NEGATIVE) Urine Occult Blood (Negative) Urine Nitrate (Negative) Urine Bilirubin (NEGATIVE) Urine Urobilinogen (0.2) E.U./dL Ur Leukocyte Esterase (NEGATIVE) Urine RBC (0-5/HPF) Urine WBC (0-5/HPF) Ur Squamous Epith Cells (0-5/HPF) Ur Transition Epith Cell (0-5/HPF) Other Crystals Urine Bacteria (None) Hyaline Casts (None) Granular Casts (None) Urine Mucus (Negative) Ur Culture Indicated? Ur Random Sodium (30-90) mmol/L Urine Creatinine mg/dL U Opiates 300ng/mL cut (Negative) Ur Oxycodone Screen (Negative) Urine Methadone Screen (Negative) Ur Barbiturates Screen (Negative) U Tricyclic Antidepress (Negative) Ur Phencyclidine Scrn (Negative) Ur Amphetamines Screen (Negative) U Methamphetamines Scrn (Negative) Ur MDMA Scrn (Ecstasy) (Negative) U Benzodiazepines Scrn (Negative) Urine Cocaine Screen (Negative) U Marijuana (THC) Screen (Negative) 05/05/23 05/05/23 05/05/23 Range/Units 14:17 14:17 15:16 WBC 13.4 H (4.5-11.0) X10^3/uL RBC 3.74 L (4.5-5.9) X10^6/uL Hgb 11.7 L (13.5-17.5) g/dL Hct 34.7 L (41-53) % MCV 92.9 (80-100) fL MCH 31.3 (26-34) PG MCHC 33.7 (30-36) % RDW 14.0 (11.6-14.8) % Plt Count 174 (150-400) X10^3/uL Neut % (Auto) 78.9 H (50-75) % Lymph % (Auto) 12.7 L (25-40) % [place] % (Auto) 7.4 (3-14) % Eos % (Auto) 0.8 L (2-4) % Baso % (Auto) 0.2 (0-2) % Neut # (Auto) 21591 H (7829-9628) /uL Lymph # (Auto) 1700 (5097-2968) /uL [place] # (Auto) 1000 H (0-900) /uL Eos # (Auto) 100 (0-450) /uL Baso # (Auto) 0 (0-100) /uL PT (10.1-12.7) SECONDS INR (0.9-1.3) APTT (26-36) SECONDS ABG pH 7.34 L (7.35-7.45) ABG pCO2 39.4 (35-45) mmHg ABG pO2 119 H (80-100) mmHg ABG HCO3 21 L (23-27) mmol/L ABG Total CO2 22 L (23-27) mmol/L ABG O2 Saturation 98 (95-100) % ABG Base Excess -5.0 L (-2-3) mmol/L FiO2 60 Sodium 137 (137-145) mmol/L Potassium 3.6 (3.4-5.1) mmol/L Chloride 97 L (98-107) mmol/L Carbon Dioxide 27 (22-32) mmol/L BUN 76 H (9-20) mg/dL Creatinine 4.65 H (0.66-1.25) mg/dL Estimated GFR 13 L (>60) mL/min BUN/Creatinine Ratio 16.3 (6-22) Glucose 110 (80-110) mg/dL Lactate (0.7-2.1) mmol/L Calcium 8.9 (8.4-10.2) mg/dL Total Bilirubin 0.4 (0.2-1.3) mg/dL AST 219 H (17-59) IU/L ALT 34 (<50) IU/L Alkaline Phosphatase 121 (38-126) U/L Total Creatine Kinase 23314 H (55-170) U/L Troponin I < 0.012 (0.01-0.034) ng/mL NT-Pro-B Natriuret Pep 412 H (<125) pg/mL Total Protein 7.8 (6.3-8.2) g/dL Albumin 4.5 (3.5-5.0) g/dL Globulin 3.3 (1.7-4.1) g/dL Albumin/Globulin Ratio 1.4 (1.0-2.8) Lipase 33 (23-300) U/L Procalcitonin (<0.5) ng/mL Urine Color Urine Appearance Urine pH (4.5-8.0) Ur Specific [place] (1.000-1.035) Urine Protein (Negative) Urine Glucose (UA) (Negative) g/dL Urine Ketones (NEGATIVE) Urine Occult Blood (Negative) Urine Nitrate (Negative) Urine Bilirubin (NEGATIVE) Urine Urobilinogen (0.2) E.U./dL Ur Leukocyte Esterase (NEGATIVE) Urine RBC (0-5/HPF) Urine WBC (0-5/HPF) Ur Squamous Epith Cells (0-5/HPF) Ur Transition Epith Cell (0-5/HPF) Other Crystals Urine Bacteria (None) Hyaline Casts (None) Granular Casts (None) Urine Mucus (Negative) Ur Culture Indicated? Ur Random Sodium (30-90) mmol/L Urine Creatinine mg/dL U Opiates 300ng/mL cut (Negative) Ur Oxycodone Screen (Negative) Urine Methadone Screen (Negative) Ur Barbiturates Screen (Negative) U Tricyclic Antidepress (Negative) Ur Phencyclidine Scrn (Negative) Ur Amphetamines Screen (Negative) U Methamphetamines Scrn (Negative) Ur MDMA Scrn (Ecstasy) (Negative) U Benzodiazepines Scrn (Negative) Urine Cocaine Screen (Negative) U Marijuana (THC) Screen (Negative) 05/05/23 05/05/23 05/05/23 Range/Units 16:15 16:15 16:47 WBC (4.5-11.0) X10^3/uL RBC (4.5-5.9) X10^6/uL Hgb (13.5-17.5) g/dL Hct (41-53) % MCV (80-100) fL MCH (26-34) PG MCHC (30-36) % RDW (11.6-14.8) % Plt Count (150-400) X10^3/uL Neut % (Auto) (50-75) % Lymph % (Auto) (25-40) % [place] % (Auto) (3-14) % Eos % (Auto) (2-4) % Baso % (Auto) (0-2) % Neut # (Auto) (9381-3071) /uL Lymph # (Auto) (4482-5043) /uL [place] # (Auto) (0-900) /uL Eos # (Auto) (0-450) /uL Baso # (Auto) (0-100) /uL PT (10.1-12.7) SECONDS INR (0.9-1.3) APTT (26-36) SECONDS ABG pH 7.29 L* (7.35-7.45) ABG pCO2 47.7 H (35-45) mmHg ABG pO2 61 L (80-100) mmHg ABG HCO3 23 (23-27) mmol/L ABG Total CO2 24 (23-27) mmol/L ABG O2 Saturation 88 L (95-100) % ABG Base Excess -4.0 L (-2-3) mmol/L FiO2 21 Sodium (137-145) mmol/L Potassium (3.4-5.1) mmol/L Chloride (98-107) mmol/L Carbon Dioxide (22-32) mmol/L BUN (9-20) mg/dL Creatinine (0.66-1.25) mg/dL Estimated GFR (>60) mL/min BUN/Creatinine Ratio (6-22) Glucose (80-110) mg/dL Lactate (0.7-2.1) mmol/L Calcium (8.4-10.2) mg/dL Total Bilirubin (0.2-1.3) mg/dL AST (17-59) IU/L ALT (<50) IU/L Alkaline Phosphatase (38-126) U/L Total Creatine Kinase (55-170) U/L Troponin I (0.01-0.034) ng/mL NT-Pro-B Natriuret Pep (<125) pg/mL Total Protein (6.3-8.2) g/dL Albumin (3.5-5.0) g/dL Globulin (1.7-4.1) g/dL Albumin/Globulin Ratio (1.0-2.8) Lipase (23-300) U/L Procalcitonin (<0.5) ng/mL Urine Color Yellow Urine Appearance Clear Urine pH 5.5 (4.5-8.0) Ur Specific [place] 1.015 (1.000-1.035) Urine Protein 1+ H (Negative) Urine Glucose (UA) Negative (Negative) g/dL Urine Ketones Negative (NEGATIVE) Urine Occult Blood 3+ H (Negative) Urine Nitrate Negative (Negative) Urine Bilirubin Negative (NEGATIVE) Urine Urobilinogen 0.2 (0.2) E.U./dL Ur Leukocyte Esterase Negative (NEGATIVE) Urine RBC 1-5/hpf (0-5/HPF) Urine WBC 1-5/hpf (0-5/HPF) Ur Squamous Epith Cells 0-1 /hpf (0-5/HPF) Ur Transition Epith Cell 0-1/hpf (0-5/HPF) Other Crystals Few amorphous Urine Bacteria Occasional (0-1) (None) Hyaline Casts 1-5/lpf (None) Granular Casts 1-5/lpf (None) Urine Mucus 1+ H (Negative) Ur Culture Indicated? Cult not indicated Ur Random Sodium 59 (30-90) mmol/L Urine Creatinine 70.2 mg/dL U Opiates 300ng/mL cut (Negative) Ur Oxycodone Screen (Negative) Urine Methadone Screen (Negative) Ur Barbiturates Screen (Negative) U Tricyclic Antidepress (Negative) Ur Phencyclidine Scrn (Negative) Ur Amphetamines Screen (Negative) U Methamphetamines Scrn (Negative) Ur MDMA Scrn (Ecstasy) (Negative) U Benzodiazepines Scrn (Negative) Urine Cocaine Screen (Negative) U Marijuana (THC) Screen (Negative) 05/05/23 05/05/23 05/05/23 Range/Units 18:34 18:57 18:57 WBC (4.5-11.0) X10^3/uL RBC (4.5-5.9) X10^6/uL Hgb (13.5-17.5) g/dL Hct (41-53) % MCV (80-100) fL MCH (26-34) PG MCHC (30-36) % RDW (11.6-14.8) % Plt Count (150-400) X10^3/uL Neut % (Auto) (50-75) % Lymph % (Auto) (25-40) % [place] % (Auto) (3-14) % Eos % (Auto) (2-4) % Baso % (Auto) (0-2) % Neut # (Auto) (1654-6042) /uL Lymph # (Auto) (7308-8951) /uL [place] # (Auto) (0-900) /uL Eos # (Auto) (0-450) /uL Baso # (Auto) (0-100) /uL PT (10.1-12.7) SECONDS INR (0.9-1.3) APTT (26-36) SECONDS ABG pH (7.35-7.45) ABG pCO2 (35-45) mmHg ABG pO2 (80-100) mmHg ABG HCO3 (23-27) mmol/L ABG Total CO2 (23-27) mmol/L ABG O2 Saturation (95-100) % ABG Base Excess (-2-3) mmol/L FiO2 Sodium 137 (137-145) mmol/L Potassium 3.8 (3.4-5.1) mmol/L Chloride 105 (98-107) mmol/L Carbon Dioxide 25 (22-32) mmol/L BUN 63 H (9-20) mg/dL Creatinine 3.82 H (0.66-1.25) mg/dL Estimated GFR 16 L (>60) mL/min BUN/Creatinine Ratio 16.5 (6-22) Glucose 106 (80-110) mg/dL Lactate (0.7-2.1) mmol/L Calcium 7.6 L (8.4-10.2) mg/dL Total Bilirubin (0.2-1.3) mg/dL AST (17-59) IU/L ALT (<50) IU/L Alkaline Phosphatase (38-126) U/L Total Creatine Kinase 9534 H (55-170) U/L Troponin I (0.01-0.034) ng/mL NT-Pro-B Natriuret Pep (<125) pg/mL Total Protein (6.3-8.2) g/dL Albumin (3.5-5.0) g/dL Globulin (1.7-4.1) g/dL Albumin/Globulin Ratio (1.0-2.8) Lipase (23-300) U/L Procalcitonin (<0.5) ng/mL Urine Color Urine Appearance Urine pH (4.5-8.0) Ur Specific [place] (1.000-1.035) Urine Protein (Negative) Urine Glucose (UA) (Negative) g/dL Urine Ketones (NEGATIVE) Urine Occult Blood (Negative) Urine Nitrate (Negative) Urine Bilirubin (NEGATIVE) Urine Urobilinogen (0.2) E.U./dL Ur Leukocyte Esterase (NEGATIVE) Urine RBC (0-5/HPF) Urine WBC (0-5/HPF) Ur Squamous Epith Cells (0-5/HPF) Ur Transition Epith Cell (0-5/HPF) Other Crystals Urine Bacteria (None) Hyaline Casts (None) Granular Casts (None) Urine Mucus (Negative) Ur Culture Indicated? Ur Random Sodium (30-90) mmol/L Urine Creatinine mg/dL U Opiates 300ng/mL cut Negative (Negative) Ur Oxycodone Screen Negative (Negative) Urine Methadone Screen Positive H (Negative) Ur Barbiturates Screen Negative (Negative) U Tricyclic Antidepress Negative (Negative) Ur Phencyclidine Scrn Negative (Negative) Ur Amphetamines Screen Positive H (Negative) U Methamphetamines Scrn Positive H (Negative) Ur MDMA Scrn (Ecstasy) Negative (Negative) U Benzodiazepines Scrn Negative (Negative) Urine Cocaine Screen Positive H (Negative) U Marijuana (THC) Screen Negative (Negative) 05/05/23 Range/Units 23:20 WBC (4.5-11.0) X10^3/uL RBC (4.5-5.9) X10^6/uL Hgb (13.5-17.5) g/dL Hct (41-53) % MCV (80-100) fL MCH (26-34) PG MCHC (30-36) % RDW (11.6-14.8) % Plt Count (150-400) X10^3/uL Neut % (Auto) (50-75) % Lymph % (Auto) (25-40) % [place] % (Auto) (3-14) % Eos % (Auto) (2-4) % Baso % (Auto) (0-2) % Neut # (Auto) (5504-3394) /uL Lymph # (Auto) (3628-3520) /uL [place] # (Auto) (0-900) /uL Eos # (Auto) (0-450) /uL Baso # (Auto) (0-100) /uL PT (10.1-12.7) SECONDS INR (0.9-1.3) APTT (26-36) SECONDS ABG pH (7.35-7.45) ABG pCO2 (35-45) mmHg ABG pO2 (80-100) mmHg ABG HCO3 (23-27) mmol/L ABG Total CO2 (23-27) mmol/L ABG O2 Saturation (95-100) % ABG Base Excess (-2-3) mmol/L FiO2 Sodium 137 (137-145) mmol/L Potassium 3.5 (3.4-5.1) mmol/L Chloride 102 (98-107) mmol/L Carbon Dioxide 28 (22-32) mmol/L BUN 56 H (9-20) mg/dL Creatinine 3.26 H (0.66-1.25) mg/dL Estimated GFR 20 L (>60) mL/min BUN/Creatinine Ratio 17.2 (6-22) Glucose 164 H (80-110) mg/dL Lactate (0.7-2.1) mmol/L Calcium 7.3 L (8.4-10.2) mg/dL Total Bilirubin (0.2-1.3) mg/dL AST (17-59) IU/L ALT (<50) IU/L Alkaline Phosphatase (38-126) U/L Total Creatine Kinase 7570 H (55-170) U/L Troponin I (0.01-0.034) ng/mL NT-Pro-B Natriuret Pep (<125) pg/mL Total Protein (6.3-8.2) g/dL Albumin (3.5-5.0) g/dL Globulin (1.7-4.1) g/dL Albumin/Globulin Ratio (1.0-2.8) Lipase (23-300) U/L Procalcitonin (<0.5) ng/mL Urine Color Urine Appearance Urine pH (4.5-8.0) Ur Specific [place] (1.000-1.035) Urine Protein (Negative) Urine Glucose (UA) (Negative) g/dL Urine Ketones (NEGATIVE) Urine Occult Blood (Negative) Urine Nitrate (Negative) Urine Bilirubin (NEGATIVE) Urine Urobilinogen (0.2) E.U./dL Ur Leukocyte Esterase (NEGATIVE) Urine RBC (0-5/HPF) Urine WBC (0-5/HPF) Ur Squamous Epith Cells (0-5/HPF) Ur Transition Epith Cell (0-5/HPF) Other Crystals Urine Bacteria (None) Hyaline Casts (None) Granular Casts (None) Urine Mucus (Negative) Ur Culture Indicated? Ur Random Sodium (30-90) mmol/L Urine Creatinine mg/dL U Opiates 300ng/mL cut (Negative) Ur Oxycodone Screen (Negative) Urine Methadone Screen (Negative) Ur Barbiturates Screen (Negative) U Tricyclic Antidepress (Negative) Ur Phencyclidine Scrn (Negative) Ur Amphetamines Screen (Negative) U Methamphetamines Scrn (Negative) Ur MDMA Scrn (Ecstasy) (Negative) U Benzodiazepines Scrn (Negative) Urine Cocaine Screen (Negative) U Marijuana (THC) Screen (Negative) Point of Care Testing Glucose POC 108 MDM Narrative Medical decision making narrative: 67-year-old male presents with weakness, he describes a possible syncopal episode last night while seated on the toilet he states he woke up on the toilet but was still seated. Patient is hypotensive in the field with EMS has had about 500 mL of fluid still in the 80 systolic range on arrival. Patient does note he has some increased acute on chronic back pain. Pain does not radiate to the chest or abdomen. Patient is on medications that would want his cardiac response taking nifedipine daily, he is on tamsulosin, lisinopril but states normally takes these in the evening although it regularly. Patient had 2 L of fluid with minimal improvement of pressure, he had questionable hypoxia had initial ABG but was on 9 L. pH was 7.37 with a CO2 of 39 and a PO2 of 119 and a bicarb of 21. Patient is sometimes a little bit sleepy he denies any other ingestions. Labs show acute renal failure, dehydration and rhabdomyolysis with a CK of 14,000 a creatinine of 4.6 and a BUN of 76 no electrolyte abnormalities at this time. Patient has a mild leukocytosis. No significant anemia. Procalcitonin elevated but this could be secondary to renal failure. Patient did have CT angio to evaluate for possible aneurysm as he stated he had significant worsening of chronic back pain. CT angio does not show any clear source of change. Patient had about 200 mL in his bladder with catheterization in his had decent urine output greater than 50 mL/hour. UA does not show any obvious signs of infection patient was covered with a dose of Rocephin. Patient continued to have questionable hypoxia, was put on room air repeat ABG on room air after 15 minute shows a pH of 7.28 pCO2 of 47 PaO2 of 61 with a bicarb of 22. Patient has questionable in his hypoxia right at the level so was placed on BiPAP as he does have an increase in his CO2 what seems to be more respiratory driven then metabolic. Spoke with Nephrology at [facility], they recommend bicarb drip, 1000 mL of D5 with 3 amps 150 per hour. They agree with plan for nor epi for hypotension as needed, continue with aggressive fluid resuscitation. If patient is becoming fluid overloaded has a worsening renal function or other changes they do recommend transfer if it is continuing to improve they feel patient would be appropriate to stay here. Patient had central line placed for access. Blood pressure has improved with nor epi. Spoke with Dr. Santiago, hospitalist, would like for repeat BNP if renal function is improving would feel would likely be appropriate here. Agrees with current plan. Patient's BNP and CK were sent Patient signed out Dr horvath: Received turned over. Reviewed patient's history and physical and workup up to this point. Patient's kidney function continues to improve. CK continues to decrease. He is still on a bicarb drip. He is not clinically fluid overloaded. Patient has been on BiPAP and tolerating this very well. He is producing urine. I did discuss the case with Dr. lemus hospitalist at [facility] who accepts the patient in transfer. Patient does require tr ansfer for higher level of care to include capability of dialysis if he were to need this. He is stable for transport. Critical Care Time <Anjana Tinoco, DO - Last Filed: 05/06/23 09:50> Critical Care Time Critical Care Time: Yes Total Critical Care Time: 45 Attestation: The high probability of a clinically significant, sudden or life threatening deterioration of the [cardiac, pulm] system(s) required my full and direct attention, intervention and personal management. The aggregate critical care time was [cardiac, pulm] minutes. This time is in addition to time spent performing reported procedures but includes the following: [x] Data Review and interpretation [x] Patient assessment and monitoring of vital signs [x] Documentation [x] Medication orders and management Discharge Plan Departure Patient Disposition: [facility] Clinical Impression: Acute renal failure, Rhabdomyolysis, Hypotension
[2023-05-05 14:22] LABS: Add Manual Diff / Slide Review NO; Basophils Absolute Auto 0 /uL (0-100); Basophils Percent Auto 0.2 % (0-2); Eosinophils Absolute Auto 100 /uL (0-450); Eosinophils Percent Auto 0.8 % (2-4); Hematocrit 34.7 % (41-53); Hemoglobin 11.7 g/dL (13.5-17.5); INR 1.1 (0.9-1.3); Lymphocytes Absolute Auto 1700 /uL (1100-4500); Lymphocytes Percent Auto 12.7 % (25-40); Mean Corpuscular HGB Conc 33.7 % (30-36); Mean Corpuscular Hemoglobin 31.3 PG (26-34); Mean Corpuscular Volume 92.9 fL (80-100); Monocytes Absolute Auto 1000 /uL (0-900); Monocytes Percent Auto 7.4 % (3-14); Neutrophils Absolute Auto 10600 /uL (1500-7000); Neutrophils Percent Auto 78.9 % (50-75); Platelet Count 174 X10^3/uL (150-400); Prothrombin Time 12.8 SECONDS (10.1-12.7); Red Blood Cell Count 3.74 X10^6/uL (4.5-5.9); White Blood Cell Count 13.4 X10^3/uL (4.5-11.0)
[2023-05-05 14:25] LABS: PTT Partial Thromboplastin Tim 37 SECONDS (26-36)
[2023-05-05 14:27] LABS: Lactate (Lactic Acid) 1.6 mmol/L (0.7-2.1)
[2023-05-05 14:28] LABS: Alanine Aminotransferase 34 IU/L (<50); Albumin 4.5 g/dL (3.5-5.0); Albumin Globulin Ratio 1.4 (1.0-2.8); Alkaline Phosphatase 121 U/L (38-126); Aspartate Aminotransferase 219 IU/L (17-59); BUN Creatinine Ratio 16.3 (6-22); Bilirubin Total 0.4 mg/dL (0.2-1.3); Blood Urea Nitrogen 76 mg/dL (9-20); Calcium 8.9 mg/dL (8.4-10.2); Carbon Dioxide 27 mmol/L (22-32); Chloride 97 mmol/L (98-107); Estimated Glomerular Filt Rate 13 mL/min (>60); Globulin 3.3 g/dL (1.7-4.1); Glucose 110 mg/dL (80-110); HEMOLYSIS < 15 (0-50); Lipase 33 U/L (23-300); Potassium 3.6 mmol/L (3.4-5.1); Sodium 137 mmol/L (137-145); Total Protein 7.8 g/dL (6.3-8.2)
[2023-05-05] MEDS: SODIUM CHLORIDE 0.9% 1,000 ML 1000 ML IV (14:35)
[2023-05-05 14:39] LABS: NT-proBNP (BNP-Adult 18+) 412 pg/mL (<125); Troponin I < 0.012 ng/mL (0.01-0.034)
[2023-05-05 14:45] LABS: Procalcitonin 0.52 ng/mL (<0.5)
[2023-05-05 15:34] LABS: HCO3 ABG 21 mmol/L (23-27); Oxygen Saturation ABG 98 % (95-100); PCO2 ABG 39.4 mmHg (35-45); PO2 ABG 119 mmHg (80-100); TCO2 ABG 22 mmol/L (23-27); pH ABG 7.34 (7.35-7.45)
[2023-05-05 15:35] LABS: Fractionated Inspired Oxygen 60
[2023-05-05 15:41] LABS: Creatine Kinase 14779 U/L (55-170)
--- NOTE | 2023-05-05 15:56 | PC.NURSE ---
This RN attempted to place an IV in right AC and left outer aspect of left forearm without success. Marilyn Allen RN attempted an IV stick on outer aspect on right forearm.
[2023-05-05] MEDS: LIDOCAINE 2% (GLYDO) 6 ML GEL TOP (15:59)
[2023-05-05 16:23] LABS: Appearance Urine UA CLEAR; Bilirubin Urine UA NEGATIVE (NEGATIVE); Color Urine UA YELLOW; Glucose Urine UA NEGATIVE (Negative); Ketones Urine UA NEGATIVE (NEGATIVE); Leukocyte Esterase Urine UA NEGATIVE (NEGATIVE); Nitrite Urine UA NEGATIVE (Negative); Occult Blood Urine UA 3+ (Negative); Protein Urine UA 1+ (Negative); Specific Gravity Urine UA 1.015 (1.000-1.035); Urobilinogen Urine UA 0.2 E.U./dL (0.2); pH Urine UA 5.5 (4.5-8.0)
[2023-05-05] MEDS: cefTRIAXone 2,000 MG in SODIUM CHLORIDE 0.9% 100 ML 200 MG IV (16:28)
[2023-05-05 16:34] LABS: Bacteria Urine Occasional (0-1); Culture Indicated Urine Cult Not Indicated; Granular Casts Urine 1-5/LPF; Hyaline Casts Urine 1-5/LPF; Mucus Urine 1+ (Negative); Other Crystals Urine Few Amorphous; RBC Urine 1-5/HPF (0-5/HPF); Squamous Epithelial Cell Urine 0-1 /HPF (0-5/HPF); Transitional Epi Cells Urine 0-1/HPF (0-5/HPF); WBC Urine 1-5/HPF (0-5/HPF)
--- NOTE | 2023-05-05 16:39 | PC.NURSE ---
Provider in room. Provider turned off oxygen and asked for respiratory to come perform a non oxygenated ABG. This RN called respiratory to complete this order.
[2023-05-05] MEDS: SODIUM CHLORIDE 0.9% 1,000 ML 150 ML IV (16:41)
[2023-05-05 16:43] LABS: Creatinine Urine Random 70.2 mg/dL; Sodium Urine Random 59 mmol/L (30-90)
--- NOTE | 2023-05-05 16:56 | PC.NURSE ---
Patient placed on BIPAP by respiratory therapy.
[2023-05-05 17:16] LABS: Fractionated Inspired Oxygen 21; HCO3 ABG 23 mmol/L (23-27); Oxygen Saturation ABG 88 % (95-100); PCO2 ABG 47.7 mmHg (35-45); PO2 ABG 61 mmHg (80-100); TCO2 ABG 24 mmol/L (23-27)
[2023-05-05 17:17] LABS: pH ABG 7.29 (7.35-7.45)
--- NOTE | 2023-05-05 17:24 | RT ---
Per Dr. Tinoco, RT placed the pt on BiPAP, initially at 1702, settings adjusted to ensure pt tolerance and comfort. IPAP level titrated to ensure adequate tidal volume. Dr. Tinoco notified, LESVIA Nassar aware. Will cont. to monitor the pt closely.
[2023-05-05] MEDS: NOREPINEPHRINE BITARTRATE/D5W 4 MG/250 ML PLAST..BAG 22.878 MG IV (17:37)
--- NOTE | 2023-05-05 18:01 | PC.NURSE ---
This patient only has access through his left hand. This RN asked provider if they wanted to start norepinephrine or Sodium bicarbonate. Provider stated Norepinephrine. This RN started this medication. Provider is going to start a central line. After placement and x-ray that confirms placement then sodium bicarbonate will be started. Provider aware.
--- NOTE | 2023-05-05 18:26 | DI.RAD.S_ITS ---
PROCEDURE: XR CHEST 1V INDICATIONS: weakness TECHNIQUE: One view of the chest was acquired. COMPARISON: [facility], CR, XR CHEST 1V, 05/05/2023, 15:12. FINDINGS: Surgical changes and devices: Right IJ central venous catheter tip projects over the low SVC. Lungs and pleura: Lungs are clear. No pleural effusions or pneumothorax. Mediastinum: Mediastinal contours appear normal. Heart size is normal. Bones and chest wall: No suspicious bony lesions. Overlying soft tissues appear unremarkable. IMPRESSION: No acute cardiopulmonary process. Dictated by: Yo Lemus M.D. on 05/05/2023 at 18:58 Approved by: Yo Lemus M.D. on 05/05/2023 at 18:58
[2023-05-05] MEDS: SODIUM BICARB 8.4% VIAL 150 MEQ in DEXTROSE 5% WATER 1,000 ML IV (19:18)
[2023-05-05 19:20] LABS: BUN Creatinine Ratio 16.5 (6-22); Blood Urea Nitrogen 63 mg/dL (9-20); Calcium 7.6 mg/dL (8.4-10.2); Carbon Dioxide 25 mmol/L (22-32); Chloride 105 mmol/L (98-107); Estimated Glomerular Filt Rate 16 mL/min (>60); Glucose 106 mg/dL (80-110); HEMOLYSIS < 15 (0-50); Potassium 3.8 mmol/L (3.4-5.1); Sodium 137 mmol/L (137-145)
[2023-05-05 19:45] LABS: Creatine Kinase 9534 U/L (55-170)
[2023-05-05 20:40] LABS: Ur Creatinine Normal (Normal); Ur Specific Gravity Normal (Normal); Urine Cocaine Positive (Negative); Urine Tetrahydrocannabinol Negative (Negative); Urine pH Normal (Normal)
[2023-05-05 20:41] LABS: UR Morphine/Opiate cutoff 300 Negative (Negative); Urine Amphetamines Positive (Negative); Urine Barbiturates Negative (Negative); Urine Benzodiazepines Negative (Negative); Urine MDMA Negative (Negative); Urine Methadone Positive (Negative); Urine Methamphetamines Positive (Negative); Urine Oxycodone Negative (Negative); Urine Phencyclidine Negative (Negative); Urine Tricyclic Antidepressant Negative (Negative)
[2023-05-05 23:53] LABS: Creatine Kinase 7570 U/L (55-170); HEMOLYSIS < 15 (0-50)
[2023-05-06] VITALS (21 sets, daily range): BP systolic 120–152; BP diastolic 61–74; PULSE 47–61; RESP 16–30; TEMP 36.3; O2SAT 94–98
[2023-05-06 00:02] LABS: BUN Creatinine Ratio 17.2 (6-22); Blood Urea Nitrogen 56 mg/dL (9-20); Calcium 7.3 mg/dL (8.4-10.2); Carbon Dioxide 28 mmol/L (22-32); Chloride 102 mmol/L (98-107); Estimated Glomerular Filt Rate 20 mL/min (>60); Glucose 164 mg/dL (80-110); Potassium 3.5 mmol/L (3.4-5.1); Sodium 137 mmol/L (137-145)
[2023-05-06 13:03] LABS: Enterococcus faecalis Not Detected (Not Detect); Enterococcus faecium Not Detected (Not Detect); Listeria monocytogenes Not Detected (Not Detect); Staphylococcus epidermidis DETECTED (Not Detect); Staphylococcus lugdunensis Not Detected (Not Detect); Staphylococcus species DETECTED (Not Detect); Streptococcus agalactiae (Gr B Not Detected (Not Detect); Streptococcus pneumonia Not Detected (Not Detect); Streptococcus species Not Detected (Not Detect); mecA/C Resistance DETECTED (Not Detect)
[2023-05-06 13:04] LABS: Acinetobacter calcoa-baumannii Not Detected (Not Detect); Bacteroides fragilis Not Detected (Not Detect); Candida albicans Not Detected (Not Detect); Candida auris Not Detected (Not Detect); Candida glabrata Not Detected (Not Detect); Candida krusei Not Detected (Not Detect); Candida parapsilosis Not Detected (Not Detect); Candida tropicalis Not Detected (Not Detect); Cryptococcus neoformans/gatti Not Detected (Not Detect); Enterobacter cloacae complex Not Detected (Not Detect); Enterobacterales Not Detected (Not Detect); Haemophilus influenzae Not Detected (Not Detect); Klebsiella aerogenes Not Detected (Not Detect); Neisseria meningitidis Not Detected (Not Detect); Proteus species Not Detected (Not Detect); Pseudomonas aeruginosa Not Detected (Not Detect); Salmonella species Not Detected (Not Detect); Serratia marcescens Not Detected (Not Detect); Stenotrophomonas maltophilia Not Detected (Not Detect); Streptococcus pyogenes (Gr A) Not Detected (Not Detect)
== END 2023-05-06 01:45 | disposition short-term general hospital (02) ==
PROVIDERS: Emergency Medicine; Emergency Provider Emergency Medicine
DX: N17.9 Acute kidney failure, unspecified (principal); M62.82 Rhabdomyolysis; R09.02 Hypoxemia; I95.9 Hypotension, unspecified
CPT/HCPCS: 36415; 36569; 36600; 71045; 71275; 74174; 80048; 80053; 80305; 81001; 82550; 82570; 82805; 82962; 83605; 83690; 83880; 84145; 84300; 84484; 85025; 85610; 85730; 87040; 87077; 87147; 87154; 87186; 93005; 94660; 96361; 96365; 96366; 96367; 99285; 99291; 99292; J0696; Q9967

== ENCOUNTER → 2023-08-22 11:34 | Outpatient (CLI) | payer MEDICARE, SELFPAY ==
[2023-05-05 22:50] VITALS: PULSE 49; RESP 19; O2SAT 94
--- NOTE | 2023-08-22 11:36 | DI.RAD.S_ITS ---
P the ROCEDURE: XR LUMBAR SPINE MIN 4V INDICATIONS: low back pain TECHNIQUE: 5 views of the lumbar spine were acquired, including bilateral oblique views. COMPARISON: [facility], MR, MR LUMBAR SPINE WITHOUT CONTRAST, 01/06/2023, 11:44. Formerly [facility], CR, L-SPINE 2-3 VIEWS, 10/27/2007, 15:37. FINDINGS: Bones: 5 nonrib-bearing vertebrae are present. Trace anterolisthesis of L4 on L5. Chronic superior endplate compression fracture of L4, [id number]. No suspicious bony lesions. Severe lower lumbar facet arthropathy. Soft tissues: Overlying bowel gas pattern is normal. No suspicious soft tissue calcifications. Oblique images: No pars defects. IMPRESSION: 1. No acute bony abnormality. 2. Old compression fracture of L4. 3. Severe lower lumbar facet arthropathy. Dictated by: Kilo Dao M.D. on 08/22/2023 at 15:18 Approved by: Kilo Dao M.D. on 08/22/2023 at 15:22
== END ==
PROVIDERS: Referring Provider Physical Medicine & Rehabilitation; Visit Provider Physical Medicine & Rehabilitation
DX: M96.1 Postlaminectomy syndrome, not elsewhere classified (principal); S32.040A Wedge compression fracture of fourth lumbar vertebra, initial encounter for closed fracture; M47.816 Spondylosis without myelopathy or radiculopathy, lumbar region; M48.062 Spinal stenosis, lumbar region with neurogenic claudication; M54.50 Low back pain, unspecified; I10 Essential (primary) hypertension; F19.11 Other psychoactive substance abuse, in remission
CPT/HCPCS: 72110; 99215

== ENCOUNTER 2023-11-24 12:01 | Emergency (ER) | payer MEDICARE, SELFPAY ==
[2023-05-05 22:50] VITALS: PULSE 49; RESP 19; O2SAT 94
[2023-11-24 12:09] VITALS: BP 162/82; PULSE 71; RESP 14; TEMP 36.6; O2SAT 98; BMI 19.3
[2023-11-24 14:25] VITALS: BP 115/64; PULSE 67; RESP 20; TEMP 36.8; O2SAT 99
--- NOTE | 2023-11-24 14:28 | ED_ITS ---
HPI - Skin/Abscess/Foreign Bdy <Laura Blanton PA-C - Last Filed: 11/24/23 20:19> General Chief complaint: Skin/Abscess/Foreign Body Stated complaint: Red and painful leg Time Seen by Provider: 11/24/23 14:27 Source: patient Mode of arrival: Ambulatory Limitations: no limitations History of Present Illness HPI narrative: This is a 68-year-old male with a history of hypertension, COPD, history of substance abuse on methadone therapy who presents with concern for redness and itching of his right cornejo and calf. Patient states he has had these symptoms for over 2 weeks and has been evaluated by his primary care provider in the last 2 days. He states they were unsure what to do about it and did not start him on antibiotics. He states that it is itchy and he often scratches at the area which she thinks may be making it worse. He is seen at [facility] for methadone therapy and states he also sees Wound Care there however ?they do not really know how to handle this?. He denies any fevers, chills, nausea, vomiting, change in appetite or any other symptoms and has otherwise been in his usual state of health. He has tried topical Benadryl with limited effect. Related Data Home Medications Medication Instructions Recorded Confirmed cholecalciferol (vitamin D3) 50 50 mcg PO DAILY 08/22/23 08/22/23 mcg (2,000 unit) tablet (Vitamin D3) diphenhydramine-zinc acetate 2 applic topical 3XD PRN itch 08/22/23 08/22/23 %-0.1 % topical cream (Benadryl Extra Strength) lisinopril 40 mg tablet 40 mg PO DAILY 08/22/23 08/22/23 nifedipine 30 mg tablet,extended 30 mg PO DAILY 08/22/23 08/22/23 release 24 hr pregabalin 75 mg capsule 75 mg PO BID 08/22/23 08/22/23 tamsulosin 0.4 mg capsule 0.4 mg PO DAILY 08/22/23 08/22/23 testosterone 1 % (50 mg/5 gram) 1 packet transdermal DAILY 08/22/23 08/22/23 transdermal gel packet Previous Rx's Medication Instructions Recorded doxycycline hyclate 100 mg capsule 100 mg PO BID 10 days #20 caps 11/24/23 Allergies Allergy/AdvReac Type Severity Reaction Status Date / Time No Known Drug Allergies Allergy Verified 11/24/23 12:09 Review of Systems <Laura Blanton PA-C - Last Filed: 11/24/23 20:19> Review of Systems Narrative: See HPI Patient History <Laura Blanton PA-C - Last Filed: 11/24/23 20:19> Medical History History of substance abuse Hypertension COPD (chronic obstructive pulmonary disease) Lumbar stenosis Facet arthropathy, lumbar Lumbar post-laminectomy syndrome Closed L4 vertebral fracture Social History Smoking Status: Current every day smoker Smoking Status: Current every day smoker tobacco type: cigarettes alcohol intake frequency: 0-2 drinks per day Substance Use Type: former substance user Exam <Laura Blanton PA-C - Last Filed: 11/24/23 20:19> Narrative Exam Narrative: GENERAL: 68 year old patient appears stated age. Well-developed patient, in mild distress. HEAD: Atraumatic. Normocephalic. EYES: Pupils equal round and reactive. Extraocular motions intact. No scleral icterus. No injection or drainage. ENT: Nose without bleeding, purulent drainage. Airway patent. NECK: Trachea midline. CARDIOVASCULAR: Regular rate and rhythm without murmurs, gallops, or rubs. RESPIRATORY: Clear to auscultation. Breath sounds equal bilaterally. No wheezes, rales, or rhonchi. GASTROINTESTINAL: Abdomen nondistended. EXTREMITIES: On the patient's right cornejo and calf there is an area of generalized erythema with skin thinning and clear serous fluid weeping. The erythema is quite bright and is circumferential, there is no significant swelling noted. There is slight discomfort with palpation of the area. Patient endorses that it is itchy mildly. Distal pulses are intact and range of motion of the knee ankle and foot are intact. The erythema spares the foot and stops while [id number]. No other edema or joint tenderness. BACK: Nontender without deformity or crepitance. No flank tenderness. NEURO: AOx3. SKIN: Patient is generally pale and chronically ill-appearing. See extremities. There are multiple small rashes in areas with little scabs over them consistent with excoriation/possible meth lesions of visible areas Initial Vital Signs Initial Vital Signs: Vital Signs Temperature 97.8 F 11/24/23 12:09 Pulse Rate 71 11/24/23 12:09 Respiratory Rate 14 11/24/23 12:09 Blood Pressure 162/82 H 11/24/23 12:09 Pulse Oximetry 98 11/24/23 12:09 Oxygen Delivery Method Room Air 11/24/23 12:09 <Miguel Hudson MD - Last Filed: 11/27/23 19:28> Initial Vital Signs Initial Vital Signs: Vital Signs Temperature 97.8 F 11/24/23 12:09 Pulse Rate 71 11/24/23 12:09 Respiratory Rate 14 11/24/23 12:09 Blood Pressure 162/82 H 11/24/23 12:09 Pulse Oximetry 98 11/24/23 12:09 Oxygen Delivery Method Room Air 11/24/23 12:09 Course <Laura Blanton PA-C - Last Filed: 11/24/23 20:19> Orders Ordered: Discontinued Medications Ceftriaxone Sodium (Ceftriaxone 2,000 Mg Vial) 1,000 mg IM NOW ONE Stop: 11/24/23 15:16 Last Admin: 11/24/23 15:50 Dose: 1,000 mg Documented By: CEFERINO Vital Signs Vital signs: Vital Signs - 8 hr 11/24/23 14:25 Temperature 98.3 F Pulse Rate 67 Respiratory Rate 20 Blood Pressure 115/64 Pulse Oximetry 99 Oxygen Delivery Method Room Air <Miguel Hudson MD - Last Filed: 11/27/23 19:28> Orders Ordered: Discontinued Medications Ceftriaxone Sodium (Ceftriaxone 2,000 Mg Vial) 1,000 mg IM NOW ONE Stop: 11/24/23 15:16 Last Admin: 11/24/23 15:50 Dose: 1,000 mg Documented By: CEFERINO Vital Signs Vital signs: Vital Signs - 8 hr 11/24/23 14:25 Temperature 98.3 F Pulse Rate 67 Respiratory Rate 20 Blood Pressure 115/64 Pulse Oximetry 99 Oxygen Delivery Method Room Air MDM - Skin/Abscess/Foreign Bdy <Laura Blanton PA-C - Last Filed: 11/24/23 20:19> Differential Diagnosis Differential diagnosis: Likely abscess of skin or subcutaneous tissue, cellulitis, contact dermatitis and other ( Excoriation injury/rash) Medical Records Attestation: I reviewed the patient's medical records. Treatment and disposition Shared decision making:: Shared decision-making was used in determining plan for evaluation and care in the emergency department plan for out patient follow-up MDM Narrative Medical decision making narrative: This is a 68-year-old male with history of substance abuse, currently on methadone, seen at [facility] who presents with concern for possible cellulitis of his right cornejo and calf present for 2 weeks' time gradually worsening. Patient has already been evaluated for this by his PCP. Patient's vitals are unremarkable today and his history does not suggest septic picture although this is certainly considered given patient's history of substance abuse. Labs are not obtained. Given appearance of the patient's leg I do suspect that this could be infected and IM ceftriaxone is given today in the ER and patient is prescribed doxycycline. He is also encouraged to follow up closely with primary care and see wound care as soon as possible he is given multiple office numbers for wound care providers in the area. He is also bandaged with a Xeroform wrap and gauze and advised to keep this on for 24-48 hours ideally seeing wound care in this window. He is given careful return precautions should his symptoms worsen or not be improving with the antibiotics. Follow-up plan discussed, all questions answered. Discharge Plan Departure Patient Disposition: Home Clinical Impression: Cellulitis of leg without foot, right Activity Restrictions/Additional Instructions: *You have been diagnosed with [ ] *What to do: *Please continue to take your regular medications as directed. [ 1] New medication prescriptions sent to your pharmacy: [Doxycyline ] [ ] New medication written as a paper prescription [ ] No new medications given *Please follow up with your primary care provider in 2-3 days, call for an appointment. Let them know you were seen in the Emergency Department and that we ask that you be seen in follow up. We will electronically transmit a record of today's note if your PCP is in our system. You came in today with concern for redness and weeping of her skin on your cornejo and calf. Given her history I am concerned that this could be developing into an infection, we did do a wound culture today and gave you a 1st dose of antibiotic through a shot anterior muscle called ceftriaxone. This is a fairly long acting antibiotic but I would like you to go ahead and take the oral antibiotic prescribed, doxycycline please pick this up today and start taking it. Take it for the full course even if things are improving. We also wrapped your leg with a special dressing and I would like you to keep this on for 24-48 hours to keep you from scratching at the area. I have put some information below and your paperwork regarding options for wound care, please call these numbers and try to get into be seen as I think you may need wound care in order to get through this problem and have it resolve. Please do your best to avoid scratching you can try taking Benadryl to help with itching symptoms. This is available [id number]. I hope you f eel better soon, however if you do develop new or worsening symptoms such as fevers, chills, dizziness, lightheadedness, redness traveling up your leg or streaking or down into your foot, or any other symptoms of concern please make sure you get re-evaluated right away. *If you do not have a primary care provider please contact the [facility] Resource line at [phone]. They will ask some questions about your medical history and help get you set up with a doctor in the community. *Return to Emergency Department if you should have any new, worsening or concerning symptoms, such as [fever greater than 101 F, shaking chills, worsening pain, persistent vomiting or other bothersome symptoms] Prescriptions: New doxycycline hyclate 100 mg capsule 100 mg PO BID 10 Days Qty: 20 0RF No Action tamsulosin 0.4 mg capsule 0.4 mg PO DAILY lisinopril 40 mg tablet 40 mg PO DAILY testosterone 1 % (50 mg/5 gram) gel in packet 1 packet transdermal DAILY Patient Comments: [NO ORIGINAL SIG] cholecalciferol (vitamin D3) [Vitamin D3] 50 mcg (2,000 unit) tablet 50 mcg PO DAILY nifedipine 30 mg tablet extended release 24hr 30 mg PO DAILY Benadryl Extra Strength 2-0.1 % cream topical 3XD PRN (Reason: itch) pregabalin 75 mg capsule 75 mg PO BID Referrals: Miguel Alvarez MD [Physician] - Leann Alvarez [Registered Nurse] - (suspect cellulitis RLE, excoriation/drug use hx; needs assist w/wound) Marco Martinez MD [Non-Staff] - Miscellaneous,DoctorMD [Primary Care Provider] - Stand Alone Forms: Patient Portal/API ED Sign-out <Miguel Hudson MD - Last Filed: 11/27/23 19:28> Cosign ED Attending Cosignature Attestation: I was immediately available in the department for consultation. ?This documentation has been reviewed and I agree with assessment and plan. Supervised by Miguel Hudson MD
[2023-11-24] MEDS: cefTRIAXone 2,000 MG VIAL 1000 MG IM (15:50)
== END 2023-11-24 16:16 | disposition home or self-care (01) ==
PROVIDERS: Emergency Provider Student in an Organized Health Care Education/Training Program
DX: L03.115 Cellulitis of right lower limb (principal)
CPT/HCPCS: 96372; 99283; J0696

== ENCOUNTER → 2024-01-03 13:17 | Outpatient (CLI) | payer MEDICARE, SELFPAY ==
[2023-05-05 22:50] VITALS: PULSE 49; RESP 19; O2SAT 94
== END ==
PROVIDERS: Visit Provider Surgery
DX: L97.811 Non-pressure chronic ulcer of other part of right lower leg limited to breakdown of skin (principal); R21 Rash and other nonspecific skin eruption; R60.0 Localized edema; L53.9 Erythematous condition, unspecified; I10 Essential (primary) hypertension; F17.210 Nicotine dependence, cigarettes, uncomplicated; F19.10 Other psychoactive substance abuse, uncomplicated
CPT/HCPCS: 87070; 87075; 87205; 99203; 99213

== ENCOUNTER → 2024-01-11 13:33 | Outpatient (CLI) | payer MEDICARE, SELFPAY ==
[2023-05-05 22:50] VITALS: PULSE 49; RESP 19; O2SAT 94
== END ==
LOC: WC 13:35
PROVIDERS: Visit Provider Surgery
DX: R21 Rash and other nonspecific skin eruption (principal); R60.0 Localized edema; L53.9 Erythematous condition, unspecified; F17.210 Nicotine dependence, cigarettes, uncomplicated
CPT/HCPCS: 99212; 99213

== ENCOUNTER → 2024-01-19 15:08 | Outpatient (CLI) | payer MEDICARE, SELFPAY ==
[2023-05-05 22:50] VITALS: PULSE 49; RESP 19; O2SAT 94
== END ==
LOC: WC 15:10
PROVIDERS: Visit Provider Surgery
DX: L97.312 Non-pressure chronic ulcer of right ankle with fat layer exposed (principal); R21 Rash and other nonspecific skin eruption; L53.9 Erythematous condition, unspecified; I10 Essential (primary) hypertension; F17.210 Nicotine dependence, cigarettes, uncomplicated
CPT/HCPCS: 99212; 99213

== ENCOUNTER → 2024-01-26 11:06 | Outpatient (CLI) | payer MEDICARE, SELFPAY ==
[2023-05-05 22:50] VITALS: PULSE 49; RESP 19; O2SAT 94
== END ==
LOC: WC 11:12
PROVIDERS: Visit Provider Surgery
DX: R21 Rash and other nonspecific skin eruption (principal); L53.9 Erythematous condition, unspecified; L30.9 Dermatitis, unspecified; F17.210 Nicotine dependence, cigarettes, uncomplicated
CPT/HCPCS: 99212; 99213

== ENCOUNTER 2024-02-07 12:10 | Outpatient (CLI) | payer MEDICARE, SELFPAY ==
[2023-05-05 22:50] VITALS: PULSE 49; RESP 19; O2SAT 94
[2024-02-07] VITALS (8 sets, daily range): BP systolic 103–148; BP diastolic 60–72; PULSE 60–82; RESP 10–20; TEMP 36.4; O2SAT 96–100
--- NOTE | 2024-02-07 13:30 | DI.RAD.S_ITS ---
PROCEDURE: PAIN L INTERLAMINAR/CAUDAL INJ INDICATIONS: L4/5 TL SHAWANDA COMPARISON: None. FINDINGS: Fluoroscopic spot filming was performed to verify placement of spinal needles at the L4-5 level(s), as labeled on the films. Appropriate location(s) of the needle tip(s) was confirmed by injection of iodinated contrast. IMPRESSION: Fluoro guidance was provided intraoperatively for L4-5 TL SHAWANDA performed by ordering physician. Dictated by: Samson Biggs M.D. on 02/07/2024 at 18:16 Approved by: Samson Biggs M.D. on 02/07/2024 at 18:16
[2024-02-07] MEDS: MIDAZOLAM 2 MG/2 ML VIAL 1 MG IV (14:03)
[2024-02-07] MEDS: BUPIVACAINE 0.25% (PF) VIAL 1 ML INJ (14:06)
[2024-02-07] MEDS: DEXAMETHASONE 10 MG/ML VIAL INJ (14:07)
[2024-02-07] MEDS: BETAMETHASONE 30 MG/5 ML MDV 6 MG INJ (14:07)
[2024-02-07] MEDS: iopamidoL 15 ML VIAL 3 ML INJ (14:08)
--- NOTE | 2024-02-07 14:19 | P.PCN_ITS ---
Date/Time/Diagnoses Date of procedure: 02/07/24 Time of procedure: 14:20 Pre-procedure diagnosis: 1. HNP WITH RADICULAR FEATURES, 2. MULTILEVEL CENTRAL STENOSIS, Post-procedure diagnosis: same Procedure Notes Procedure: 1. FLUOROSCOPICALLY GUIDED CONTRAST CONTROLLED INTERLAMINAR EPIDURAL STEROID INJECTION -L4/5 Indications: Jovani is referred for treatment of Bilateral Foraminal Stenosis R>L LE symptoms. Physician: Oleksandr Young Total Fluoroscopy time (seconds): 8 Total sedation minutes: 11 Complications: none Procedure in detail & Post-procedure care: FINDINGS Multilevel Central Spinal Stenosis with Nerve Root Compression DESCRIPTION OF PROCEDURE Fluoroscopically guided, contrast-controlled L4/5 translaminar epidural steroid injection. Following review of allergy and review of potential side effects and complications, including, but not necessarily limited to, infection, allergic reaction, local tissue breakdown, temporary as well as permanent nerve injury, paralysis, stroke and possible , the patient indicated that the patient understood and agreed to proceed. An informed consent document was signed by the patient, witnessed by a nurse, and placed in the patient's chart. Additionally, other treatment options including modalities, medications, and physical therapy were reviewed with the patient. After review of previous anaesthesic history and IV conscious sedation the patient was deemed safe to proceed with today?s procedure with IV conscious sedation as ASA class II designation. Safety time-out was performed to confirm patient ID, procedure to be performed and site of procedure. IV sedation was accomplished with a combination of 1mg of Versed was administered by the RN after DO order, titrated to patient comfort during the course of the procedure while the patient remained responsive to all verbal commands In the prone position, following sterile prep and drape of the lumbar region, the L4/5 translaminar space was identified fluoroscopically. The skin was anesthetized via a 25-gauge, 1.5inch needle with 1% lidocaine solution. At this point, a 22-gauge short bevel spinal needle was atraumatically introduced and advanced under fluoroscopic guidance into the region of the L4/5 translaminar space. Depth was confirmed on lateral view. Radiological data, including multiple fluoroscopic views of the lumbar spine, reveal a spinal needle at the L4/5 translaminar space. Lateral views then show placement of the needle in the epidural space. Subsequent views show contrast material flowing superiorly and inferiorly in the epidural space. No vascular or intrathecal uptake is observed. At this point, using loss of resistance technique with saline and air, the epidural space was entered. This was confirmed following negative aspiration with injection of approximately 1.5cc of Isovue 200, showing excellent epidural flow without vascular or intrathecal uptake. At this point, 1cc of 1% lidocaine solution combined with 2cc or 10mg of dexamethasone and 6mg betamethasone was injected without incident. The patient tolerated the procedure well without signs or symptoms of complications prior to transfer to the recovery area continued monitoring without incident. The patient was then transferred to the recovery area where they were observed for an appropriate period of time after the injection. The patient reported a VAS score of 6 prior to the procedure and a post- procedure VAS of 0. POST OP INSTRUCTIONS The patient was provided a Pain Log to continue to record their response to the target-specific procedure prior to follow-up visit with their referring physician. Additionally, specific post-injection care instructions and a contact number to our office were provided if concerns arise regarding possible complications associated with the procedure are suspected.
--- NOTE | 2024-02-07 14:44 | PC.NURSE ---
Spoke with CJ with medical transport regarding patient discharge. He assumes responsibility of the patient post sedation and will ensure the patient gets safely inside his residence.
== END 2024-02-07 14:45 | disposition home or self-care (01) ==
LOC: RAD 12:11
PROVIDERS: Referring Provider Physical Medicine & Rehabilitation; Visit Provider Physical Medicine & Rehabilitation
DX: M51.16 Intervertebral disc disorders with radiculopathy, lumbar region (principal); M48.061 Spinal stenosis, lumbar region without neurogenic claudication
CPT/HCPCS: 62323; 99152; J0702; J1100; J2250

== ENCOUNTER 2024-03-15 13:24 | Emergency (ER) | payer MEDICARE, SELFPAY ==
[2023-05-05 22:50] VITALS: PULSE 49; RESP 19; O2SAT 94
[2024-03-15 13:27] VITALS: BP 120/68; PULSE 82; RESP 16; TEMP 36.4; O2SAT 100; BMI 17.7
--- NOTE | 2024-03-15 13:54 | ED.EXTPRO ---
HPI - Extremity Problem General Chief complaint: Extremity Problem,Nontraumatic Stated complaint: poss blood clot, sent by pcp Time Seen by Provider: 03/15/24 13:44 Source: patient Mode of arrival: Ambulatory History of Present Illness HPI Narrative: 68-year-old male history of high blood pressure, COPD, melanoma and substance abuse was sent to the emergency department by his provider at the methadone clinic for concern of a left lower extremity blood clot. He reports that for the past week he has had swelling and redness to his left foot. No trauma. No fevers. No chest pain. No shortness of breath. Does have some discomfort with palpation of the back of his calf. He has never had a blood clot in the past. Related Data Home Medications Medication Instructions Recorded Confirmed cholecalciferol (vitamin D3) 50 50 mcg PO DAILY 08/22/23 01/04/24 mcg (2,000 unit) tablet (Vitamin D3) diphenhydramine-zinc acetate 2 applic topical 3XD PRN itch 08/22/23 01/04/24 %-0.1 % topical cream (Benadryl Extra Strength) lisinopril 40 mg tablet 40 mg PO DAILY 08/22/23 01/04/24 nifedipine 30 mg tablet,extended 30 mg PO DAILY 08/22/23 01/04/24 release 24 hr pregabalin 75 mg capsule 75 mg PO BID 08/22/23 01/04/24 tamsulosin 0.4 mg capsule 0.4 mg PO DAILY 08/22/23 01/04/24 testosterone 1 % (50 mg/5 gram) 1 packet transdermal DAILY 08/22/23 01/04/24 transdermal gel packet clotrimazole-betamethasone 1 1 applic topical ONCE 01/04/24 01/04/24 %-0.05 % topical cream doxycycline hyclate 100 mg capsule 100 mg PO BID 01/04/24 01/04/24 Allergies Allergy/AdvReac Type Severity Reaction Status Date / Time No Known Drug Allergies Allergy Verified 03/15/24 13:32 Review of Systems Review of Systems Narrative: See HPI Patient History Medical History Lumbar stenosis with neurogenic claudication History of substance abuse Hypertension COPD (chronic obstructive pulmonary disease) Lumbar stenosis Facet arthropathy, lumbar Lumbar post-laminectomy syndrome Closed L4 vertebral fracture Social History Smoking Status: Current every day smoker Smoking Status: Current every day smoker tobacco type: cigarettes alcohol intake frequency: 0-2 drinks per day Substance Use Type: former substance user Exam Initial Vital Signs Initial Vital Signs: Vital Signs Temperature 97.6 F 03/15/24 13:27 Pulse Rate 82 03/15/24 13:27 Respiratory Rate 16 03/15/24 13:27 Blood Pressure 120/68 03/15/24 13:27 Pulse Oximetry 100 03/15/24 13:27 Oxygen Delivery Method Room Air 03/15/24 13:27 Const General: cooperative and disheveled HENMT Head: normal to inspection and normocephalic Cardio Pulses: dorsalis pedis present on the left Skin Other: Patient has systemic dry skin. He has redness located on both of his lower feet with left being greater than right. There are no vesicles. No pustules. Not warm to the touch. No bleeding. No drainage. Neuro General: patient alert and patient awake Extrem Other: Swelling of the left foot. No swelling to the left calf or left thigh. Course Orders Ordered: ED Orders 03/15/24 14:13 Basic Metabolic Panel Stat Complete Blood Count AUTO DIFF Stat D Dimer Stat Vital Signs Vital signs: Vital Signs - 8 hr 03/15/24 13:27 Temperature 97.6 F Pulse Rate 82 Respiratory Rate 16 Blood Pressure 120/68 Pulse Oximetry 100 Oxygen Delivery Method Room Air MDM - Extremity (Nontraumatic) Lab Data 03/15/24 14:13 03/15/24 14:13 Labs: Lab Results 03/15/24 Range/Units 14:13 WBC 8.5 (4.5-11.0) X10^3/uL RBC 3.82 L (4.5-5.9) X10^6/uL Hgb 11.9 L (13.5-17.5) g/dL Hct 35.3 L (41-53) % MCV 92.4 (80-100) fL MCH 31.1 (26-34) PG MCHC 33.7 (30-36) % RDW 14.3 (11.6-14.8) % Plt Count 226 (150-400) X10^3/uL Neut % (Auto) 67.4 (50-75) % Lymph % (Auto) 22.2 L (25-40) % [place] % (Auto) 6.8 (3-14) % Eos % (Auto) 3.0 (2-4) % Baso % (Auto) 0.6 (0-2) % Neut # (Auto) 5700 (1466-7604) /uL Lymph # (Auto) 1900 (3935-6322) /uL [place] # (Auto) 600 (0-900) /uL Eos # (Auto) 300 (0-450) /uL Baso # (Auto) 100 (0-100) /uL D-Dimer 508 H (<500) ng/ml Sodium 141 (137-145) mmol/L Potassium 4.3 (3.4-5.1) mmol/L Chloride 108 H (98-107) mmol/L Carbon Dioxide 23 (22-32) mmol/L BUN 41 H (9-20) mg/dL Creatinine 1.38 H (0.66-1.25) mg/dL Estimated GFR 55 L (>60) mL/min BUN/Creatinine Ratio 29.7 H (6-22) Glucose 108 (80-110) mg/dL Calcium 9.0 (8.4-10.2) mg/dL MDM Narrative Medical decision making narrative: I have a very low suspicion that his symptoms today are related to a blood clot. He was also not having fevers, no leukocytosis, no warmth or pain to the foot. Low suspicion for fracture. Low suspicion for infection. I do suspect that this is vascular. No indication for admission to hospital or antibiotics. Will discharge patient home with return precautions. Discharge Plan Departure Patient Disposition: Home Clinical Impression: Foot swelling Instructions: Edema Activity Restrictions/Additional Instructions: Continue to take all of your medications as directed. You can soak your feet in Epsom salts like we discussed. Contact your primary care doctor for follow-up. Return to the emergency department for new or worsening symptoms. Prescriptions: No Action tamsulosin 0.4 mg capsule 0.4 mg PO DAILY lisinopril 40 mg tablet 40 mg PO DAILY testosterone 1 % (50 mg/5 gram) gel in packet 1 packet transdermal DAILY Patient Comments: [NO ORIGINAL SIG] cholecalciferol (vitamin D3) [Vitamin D3] 50 mcg (2,000 unit) tablet 50 mcg PO DAILY nifedipine 30 mg tablet extended release 24hr 30 mg PO DAILY Benadryl Extra Strength 2-0.1 % cream topical 3XD PRN (Reason: itch) pregabalin 75 mg capsule 75 mg PO BID doxycycline hyclate 100 mg capsule 100 mg PO BID clotrimazole-betamethasone 1-0.05 % cream 1 applic topical ONCE Referrals: Roseline Moss DO [Primary Care Provider] - Stand Alone Forms: Patient Portal/API
[2024-03-15 14:21] LABS: Add Manual Diff / Slide Review NO; Basophils Absolute Auto 100 /uL (0-100); Basophils Percent Auto 0.6 % (0-2); Eosinophils Absolute Auto 300 /uL (0-450); Hematocrit 35.3 % (41-53); Hemoglobin 11.9 g/dL (13.5-17.5); Lymphocytes Absolute Auto 1900 /uL (1100-4500); Lymphocytes Percent Auto 22.2 % (25-40); Mean Corpuscular HGB Conc 33.7 % (30-36); Mean Corpuscular Hemoglobin 31.1 PG (26-34); Mean Corpuscular Volume 92.4 fL (80-100); Monocytes Absolute Auto 600 /uL (0-900); Monocytes Percent Auto 6.8 % (3-14); Neutrophils Absolute Auto 5700 /uL (1500-7000); Neutrophils Percent Auto 67.4 % (50-75); Platelet Count 226 X10^3/uL (150-400); Red Blood Cell Count 3.82 X10^6/uL (4.5-5.9); Red Cell Distribution Width 14.3 % (11.6-14.8); White Blood Cell Count 8.5 X10^3/uL (4.5-11.0)
[2024-03-15 14:30] LABS: D Dimer 508 ng/ml (<500)
[2024-03-15 14:35] LABS: BUN Creatinine Ratio 29.7 (6-22); Blood Urea Nitrogen 41 mg/dL (9-20); Carbon Dioxide 23 mmol/L (22-32); Chloride 108 mmol/L (98-107); Estimated Glomerular Filt Rate 55 mL/min (>60); Glucose 108 mg/dL (80-110); HEMOLYSIS < 15 (0-50); Potassium 4.3 mmol/L (3.4-5.1); Sodium 141 mmol/L (137-145)
== END 2024-03-15 15:05 | disposition home or self-care (01) ==
PROVIDERS: Emergency Provider Emergency Medicine; PCP Family Medicine
DX: M79.89 Other specified soft tissue disorders (principal)
CPT/HCPCS: 36415; 80048; 85025; 85379; 99281; 99282

== ENCOUNTER → 2024-05-24 10:54 | Outpatient (CLI) | payer MEDICARE, SELFPAY ==
[2023-05-05 22:50] VITALS: PULSE 49; RESP 19; O2SAT 94
--- NOTE | 2024-05-24 10:56 | DI.US.S_ITS ---
PROCEDURE: US ARTERIAL DUPLEX LE BI INDICATIONS: PAIN IN LEFT FOOT TECHNIQUE: Color and pulse Doppler interrogation was performed of both lower extremity arterial systems, with image documentation. COMPARISON: None. FINDINGS: Right lower extremity: Common femoral artery: 112 cm/sec, with triphasic flow. Deep femoral artery: 144 cm/sec, with triphasic flow. Proximal superficial femoral artery: 84 cm/sec, with triphasic flow. Mid superficial femoral artery: 280 cm/sec, with biphasic flow. Distal superficial femoral artery: 116 cm/sec, with biphasic flow. Popliteal artery: 44 cm/sec, with biphasic flow. Posterior tibial artery: 65 cm/sec, with biphasic flow. Anterior tibial artery/dorsalis pedis: 40 cm/sec, with biphasic flow. Forde-scale imaging description: Atherosclerotic plaque Left lower extremity: Common femoral artery: 87 cm/sec, with biphasic flow. Deep femoral artery: 63 cm/sec, with biphasic flow. Proximal superficial femoral artery: Occluded Mid superficial femoral artery: Occluded Distal superficial femoral artery: Occluded Popliteal artery: Occluded Posterior tibial artery: 21 cm/sec, with monophasic flow. Anterior tibial artery/dorsalis pedis: 13 cm/sec, with monophasic flow. Forde-scale imaging description: Atherosclerotic plaque IMPRESSION: High-grade stenosis in the mid right superficial femoral artery. Occluded left SFA and popliteal arteries with at least 2 vessel runoff in the calf through collaterals Approved by: Jeremy Curry M.D. on 05/24/2024 at 15:01
== END ==
PROVIDERS: PCP Family Medicine; Referring Provider Internal Medicine Cardiovascular Disease; Visit Provider Internal Medicine Cardiovascular Disease
DX: M79.672 Pain in left foot (principal); I70.201 Unspecified atherosclerosis of native arteries of extremities, right leg; I70.92 Chronic total occlusion of artery of the extremities
CPT/HCPCS: 93925

== ENCOUNTER → 2024-10-26 10:56 | Outpatient (CLI) | payer MEDICARE, SELFPAY ==
[2023-05-05 22:50] VITALS: PULSE 49; RESP 19; O2SAT 94
== END ==
LOC: WC 10:59
PROVIDERS: PCP Family Medicine; Referring Provider Physician Assistant; Visit Provider Physician Assistant
DX: I70.243 Atherosclerosis of native arteries of left leg with ulceration of ankle (principal); L97.322 Non-pressure chronic ulcer of left ankle with fat layer exposed; I73.9 Peripheral vascular disease, unspecified; L20.9 Atopic dermatitis, unspecified; L53.8 Other specified erythematous conditions; R60.0 Localized edema; F17.200 Nicotine dependence, unspecified, uncomplicated; I10 Essential (primary) hypertension
CPT/HCPCS: 11042; 87070; 87075; 87077; 87186; 87205; 99213; 99214

== ENCOUNTER → 2024-11-09 10:39 | Outpatient (CLI) | payer MEDICARE, MEDICAID, SELFPAY ==
[2023-05-05 22:50] VITALS: PULSE 49; RESP 19; O2SAT 94
== END ==
PROVIDERS: PCP Family Medicine; Referring Provider Family Medicine; Visit Provider Surgery
DX: L97.322 Non-pressure chronic ulcer of left ankle with fat layer exposed (principal); I73.9 Peripheral vascular disease, unspecified; L53.8 Other specified erythematous conditions; F17.200 Nicotine dependence, unspecified, uncomplicated
CPT/HCPCS: 11042; 99213

== ENCOUNTER → 2024-11-16 11:20 | Outpatient (CLI) | payer MEDICARE, MEDICAID, SELFPAY ==
[2023-05-05 22:50] VITALS: PULSE 49; RESP 19; O2SAT 94
--- NOTE | 2024-11-16 | OV.WND_ITS ---
PROGRESS NOTE DETAILS PATIENT NAME: WE[facility] MEDINA PATIENT NUMBER: [id number] CLINICIAN: SANDY GRACIA RN PATIENT DATE OF : 1955 PHYSICIAN / PHARMACY TECHNOLOGY INSTRUCTOR: KARON SIMON PA-C PATIENT SUBJECTIVE CHIEF COMPLAINT THIS INFORMATION WAS OBTAINED FROM THE PATIENT. I HAVE 1 OUT OF 10 PAIN (IN THE WOUND AREA.) GENERAL NOTES LEFT MEDIAL ANKLE ULCER. ALLERGIES BENADRYL (REACTION: BURN LIKE DERMAL REACTION) HPI THIS INFORMATION WAS OBTAINED FROM THE PATIENT. LOCATION: LEFT MEDIAL ANKLE DURATION: 02/18/2024 CONTEXT: ARTERIAL THE PATIENT IS A 69-YEAR-OLD MALE WITH HISTORY OF SUBSTANCE ABUSE, TOBACCO USE, PAD, AND HYPERTENSION WHO RETURNS TO WOUND CLINIC FOR FOLLOW UP OF ARTERIAL ULCER OF THE LEFT ANKLE. THE PATIENT IS CURRENTLY BEING TREATED WITH LINEZOLID. HE DENIES HAVING ANY FEVER OR CHILLS. THE PATIENT REPORTS A GOOD APPETITE AND IS TAKING PROTEIN SUPPLEMENTS. PAST HISTORY IS REMARKABLE FOR HAVING SEVERE ECZEMA TO LOWER EXTREMITIES. PREVIOUS ELADIA ON THE RIGHT WAS 0.88 AND INDICATED PAD ON THE LEFT. HE HAD TWO STENTS PLACED IN LEFT LEG IN JUNE 2024. HE IS WAITING FOR A REPEAT US APPOINTMENT AND VASCULAR FOLLOW UP. THE PATIENT IS A CURRENT CIGARETTE SMOKER. THE PATIENT DID HAVE AN X-RAY OF LEFT FOOT DONE AT [facility] A FEW WEEKS AGO WITH NO ACUTE ABNORMALITIES. RECENT LABS WERE REVIEWED AND HE WAS FOUND TO HAVE MILD ANEMIA, NORMAL GFR AND NORMAL LFTS. LABS: 10/26/24: CULTURES GREW ENTEROCOCCUS FAECALIS 10/04/24: XRAY NO ACUTE OSSEOUS ABNORMALITY 05/24/24: ARTERIAL DOPPLER: HIGH-GRADE STENOSIS IN THE MID RIGHT SUPERFICIAL FEMORAL ARTERY. OCCLUDED LEFT SFA AND POPLITEAL ARTERIES WITH AT LEAST 2 VESSEL RUNOFF IN THE CALF THROUGH COLLATERALS 01/03/24: CULTURE GREW MIXED SKIN DESIRAE MEDICAL HISTORY THIS INFORMATION WAS OBTAINED FROM THE CHART, PATIENT. PATIENT HAS A MEDICAL HISTORY OF: HYPERTENSION RHABDOMYOLYSIS HYPOGONADISM [facility] [id number] 1955 URINARY HESITANCY CHRONIC LOW BACK PAIN ANEMIA RASH PRURITUS SUBSTANCE USE DISORDER MELANOMA, FACE PAD SURGICAL HISTORY THIS INFORMATION WAS OBTAINED FROM THE PATIENT. PATIENT HAS A SURGICAL HISTORY OF: SPINAL SURGERIES- ABDOMINAL HERNIA REPAIR- SKIN CANCER REMOVAL- AORTOILIAC STENT- 06/26/2024 (BILATERAL LOWER EXTREMITIES) EXTERNAL COMMON ILIAC STENT- 06/26/2024 (LEFT LOWER EXTREMITY) OBJECTIVE VITALS HEIGHT/LENGTH: 69 IN (175.26 CM), WEIGHT: 121.2 LBS (55.09 KGS), BMI: 17.9, TEMPERATURE: 99.1 ?F (37.28 ?C), PULSE: 72 BPM, RESPIRATORY RATE: 18 BREATHS/MIN, BLOOD PRESSURE: 153/93 MMHG, PULSE OXIMETRY: 100 %. PHYSICAL EXAM CONSTITUTIONAL: GENERALIZED WEAKNESS. IN NO APPARENT DISTRESS. GOOD ATTENTION TO HYGIENE AND BODY HABITS. ALERT AND ORIENTED X 3. WELL NOURISHED. VITAL SIGNS REVIEWED AND NOTED. HYPERTENSIVE. PULSE RATE AND RHYTHM REGULAR. LOW GRADE. WEIGHT WNL. WELL DEVELOPED, WELL NOURISHED, AND IN NO ACUTE DISTRESS. ALERT AND ORIENTED X3. AMBULATES AND IS ABLE TO CHANGE POSITION WITHOUT ASSISTANCE. ALERT AND ORIENTED X 3. CARDIOVASCULAR: SEE LOWER EXTREMITY ASSESSMENT WHEN APPLICABLE. THERE IS NO PERIPHERAL EDEMA, CYANOSIS OR PALLOR. EXTREMITIES ARE WARM AND WELL PERFUSED. CAPILLARY REFILL IS LESS THAN 2 SECONDS. INTEGUMENTARY (HAIR, SKIN): LOWER LEGS WITH SEVERE ECZEMA - DRY AND SCALY. SEE WOUND DESCRIPTION. NEUROLOGICAL: SENSATION: SYMMETRIC FUNCTION BY INFORMAL OBSERVATION. PSYCHIATRIC: ORIENTATION TO TIME, PLACE AND PERSON: NORMAL AFFECT WITH NORMAL THOUGHT PATTERN. MOOD AND AFFECT: NORMAL AFFECT WITH NORMAL THOUGHT PATTERN. WOUND ASSESSMENT(S) WOUND #3 LEFT, MEDIAL ANKLE IS A CHRONIC FULL THICKNESS ARTERIAL ULCER ACQUIRED ON 02/18/2024 AND HAS RECEIVED A STATUS OF NOT HEALED. INITIAL WOUND ENCOUNTER MEASUREMENTS ARE 1.2CM LENGTH X 2.1CM WIDTH X 0.2 CM DEPTH, WITH AN AREA OF 2.52 SQ CM AND A VOLUME OF 0.504 CUBIC CM.INITIAL WOUND ENCOUNTER PREVIOUS MEASUREMENTS FROM 11/09/2024 ARE 1.5CM LENGTH X 2.5CM WIDTH X 0.2CM DEPTH, WITH AN AREA OF 3.75 SQ CM AND A VOLUME OF 0.75 CUBIC CM. ADIPOSE IS EXPOSED. NO TUNNELING HAS BEEN NOTED. NO SINUS TRACT HAS BEEN NOTED. NO UNDERMINING HAS BEEN NOTED. THERE IS A LARGE AMOUNT OF SEROSANGUINEOUS DRAINAGE NOTED WHICH HAS NO ODOR. THE PATIENT REPORTS A WOUND PAIN OF LEVEL 10/10. THE WOUND MARGIN IS ROLLED WOUND BED HAS YES, PINK, FIRM, GRANULATION, YES SLOUGH, NO ESCHAR, NO EPITHELIALIZATION. WE[facility] MED[facility] [id number] 1955 THE PERIWOUND SKIN EXHIBITED EDEMA, RASH AND ERYTHEMA. THE TEMPERATURE OF THE PERIWOUND SKIN IS WARM. LOCAL PULSE IS DOPPLER. ADDITIONAL INFORMATION OTHER DEVITALIZED TISSUE PRESENT: BIOFILM ELADIA/VASCULAR COMPLETED?: FOLLOWED BY FIL[facility]O VASCULAR. ASSESSMENT ACTIVE PROBLEMS ICD-10 (ENCOUNTER DIAGNOSIS) L97.322 - NON-PRESSURE CHRONIC ULCER OF LEFT ANKLE WITH FAT LAYER EXPOSED (ENCOUNTER DIAGNOSIS) F17.200 - NICOTINE DEPENDENCE, UNSPECIFIED, UNCOMPLICATED (ENCOUNTER DIAGNOSIS) I73.9 - PERIPHERAL VASCULAR DISEASE, UNSPECIFIED (ENCOUNTER DIAGNOSIS) L20.9 - ATOPIC DERMATITIS, UNSPECIFIED PROCEDURES WOUND #3 WOUND #3 (ARTERIAL ULCER) IS LOCATED ON THE LEFT, MEDIAL ANKLE. A SKIN/SUBCUTANEOUS TISSUE LEVEL SURGICAL DEBRIDEMENT WITH A TOTAL AREA DEBRIDED OF 2.52 SQ CM. WAS PERFORMED BY KARON SIMON PA-C. SUBCUTANEOUS WAS REMOVED ALONG WITH DEVITALIZED TISSUE: BIOFILM, EXUDATE AND SLOUGH. THE FOLLOWING INSTRUMENT(S) WERE USED: CURETTE. PAIN CONTROL WAS ACHIEVED USING EMLA LIDOCAINE/PRILOCAINE 2.5%/2.5%. A TIME OUT WAS CONDUCTED PRIOR TO THE START OF THE PROCEDURE. A MINIMAL AMOUNT OF BLEEDING WAS CONTROLLED WITH PRESSURE. THE PROCEDURE WAS TOLERATED WELL WITH A PAIN LEVEL OF 0 THROUGHOUT AND A PAIN LEVEL OF 0 FOLLOWING THE PROCEDURE. POST DEBRIDEMENT MEASUREMENTS: 1.2CM LENGTH X 2.1CM WIDTH X 0.3CM DEPTH; WITH AN AREA OF 2.52 SQ CM AND A VOLUME OF 0.756 CUBIC CM. ADDITIONAL INFORMATION MUSCLE FASCIA OR BONE REMOVED AND SENT TO PATHOLOGY?: NO PLAN WOUND ORDERS: WOUND #3 LEFT, MEDIAL ANKLE CLEANSER CLEANSE WOUND WITH NORMAL SALINE MAY SHOWER, LEAVE WOUND DRESSING INTACT. COVER WOUND DRESSING WITH A WATERPROOF BARRIER. KEEP DRESSING DRY. NO BATHS PLEASE. PROCEDURE / ANESTHETIC 5% TOPICAL LIDOCAINE TO WOUND BED PRIOR TO PROCEDURE, IN CLINIC ONLY. TOPICAL TREATMENTS OTHER ORDER: - VENELEX, AANDD, LOTRISONE CREAM. TRIO. YOU MAY SWITCH TO BARRIER CREAM IF YOU NOTICE INCREASED MOISTURE, TO ASSIST WITH DRYING THE SKIN OUT. DRESSING ORDERS APPLY DRESSING(S) AND SECURE WITH: - COLLAGEN MOISTENED WITH SALINE, THEN HYDROFERA BLUE CLASSIC MOISTENED WITH SALINE AND WRUNG OUT. COVER WITH FOAM, SECURE WITH ROLL GAUZE. DRESSING CHANGE FREQUENCY CHANGE DRESSING DAILY. WE[facility] MEDINA [id number] 1955 ADDITIONAL ORDERS: HAND HYGIENE HAND HYGIENE - WASH HANDS BEFORE AND AFTER WOUND CARE. CALL THE WOUND CENTER AT [phone] IF YOU HAVE SIGNS OR SYMPTOMS OF INFECTION, FEVER CHILLS OR SHAKES, INCREASED DRAINAGE, INCREASED ODOR OR UNUSUAL REDNESS. AFTER WOUND CENTER HOURS PLEASE NOTIFY YOUR PCP OR GO TO THE EMERGENCY ROOM. DIETARY TAKE VITAMIN C 1000MG BY MOUTH DAILY. TAKE ZINC 25MG BY MOUTH DAILY. INCREASE THE PROTEIN IN YOUR DIET. FOLLOW-UP APPOINTMENTS RETURN APPOINTMENT 1 WEEK OTHER ORDERS: - CONTINUE TO TAKE YOUR ANTIBIOTICS. OTHER ORDERS: - PLEASE GET CBC AT [facility] AFTER YOU ARE DONE WITH YOUR ANTIBIOTICS. SCRIBING ATTESTATION I ATTEST, THE NURSE, THAT I SCRIBED THESE ORDERS FOR THE WOUND CARE PROVIDER. PROVIDER REVIEW AND ATTESTATION: REVIEWED AND EVALUATED LABS. REVIEWED HOSPITAL RECORDS. DISCUSSED THE PLAN OF CARE @ BEDSIDE WITH - PATIENT I AGREE AND ATTEST TO THE ABOVE INFORMATION PROVIDED FROM OTHER LICENSED PROFESSIONALS. PLAN OF CARE: 01. ENSURE/ESTABLISH OPTIMAL BLOOD FLOW : - COMPLETE LOWER EXTREMITY ASSESSMENT STATUS: INITIATED DATE: 10/26/2024 - ORDER VASCULAR CONSULT FOR EVALUATION/TREATMENT AND/OR NON-INVASIVE VASCULAR TESTING. - CURRENTLY BEING TREATED AT [facility]. REQUESTED NOTES. STATUS: COMPLETED DATE: 10/26/2024 02. ASSESS FOR/TREAT INFECTION : - EVALUATE FOR SIGNS AND SYMPTOMS OF INFECTION AND DOCUMENT FINDINGS. STATUS: INITIATED DATE: 10/26/2024 - OBTAIN CULTURE AND SENSITIVITY (CANDS) OR TISSUE CULTURE WHEN INFECTION IS SUSPECTED. (NOTE:) CONSIDER REPEATING WHEN WOUND HEALING <40% AFTER 30 DAYS OF WOUND CARE. STATUS: INITIATED DATE: 10/26/2024 03. DEBRIDE WEEKLY OR MORE OFTEN PRN : - EVALUATE PATIENT IN CENTER WEEKLY TO ASSESS WOUND BED AND MARGINS FOR NEED FOR DEBRIDEMENT. STATUS: INITIATED DATE: 10/26/2024 - DEBRIDEMENT BY ANY METHOD TO REMOVE DEVITALIZED/NECROTIC TISSUE TO PROMOTE HEALING AND PREVENT FURTHER COMPLICATIONS. GOAL IS TO STIMULATE AND/OR MAINTAIN ACUTE PHASE OF WOUND HEALING BY REDUCING BACTERIAL BURDEN AND DEVITALIZED/NON-VIABLE TISSUE. STATUS: INITIATED DATE: 10/26/2024 04. OPTIMIZE GLUCOSE CONTROL AND NUTRITION : - ORDER/REVIEW PERTINENT LABS TO EVALUATE RENAL FUNCTION, GLUCOSE CONTROL, AND NUTRITIONAL STATUS. STATUS: INITIATED DATE: 10/26/2024 - COMPLETE A NUTRITION RISK ASSESSMENT. STATUS: COMPLETED DATE: 10/26/2024 05. OFFLOADING PLAN : - REVIEWED, NOT APPLICABLE 06. OPTIMIZE HOST FACTORS: - ASSESS AND REVIEW PATIENT HISTORY FOR WOUND ETIOLOGY, CO-MORBID CONDITIONS, MEDICATION REGIME, AND SMOKING HISTORY. STATUS: INITIATED DATE: 10/26/2024 07. DRESSING SELECTION : - EVALUATE FOR DRESSING-RELATED FACTORS, SUCH AVAILABILITY, WEAR TIME, ADAPTABILITY AND USE TO BETTER WE[facility] MEDINA [id number] 1955 OPTIMIZE WOUND HEALING AND PATIENT COMPLIANCE. STATUS: INITIATED DATE: 10/26/2024 08. ADVANCED MODALITIES : - SET TREATMENT GOALS ACCORDING TO PATIENT AND/OR CAREGIVER?S ABILITY/ COMPLIANCE. STATUS: INITIATED DATE: 10/26/2024 - RE-EVALUATE PLAN OF CARE IF NO EVIDENCE OF HEALING (40% IN 4 WEEKS). STATUS: INITIATED DATE: 10/26/2024 09. FALL PREVENTION : - COMPLETE FALL ASSESSMENT. STATUS: INITIATED DATE: 10/26/2024 - PROVIDE EDUCATION MATERIALS/DISCUSS PREVENTION STRATEGIES APPROPRIATE. STATUS: INITIATED DATE: 10/26/2024 10. PAIN MANAGEMENT : - COMPLETE PAIN ASSESSMENT STATUS: COMPLETED DATE: 10/26/2024 - PREPARE PATIENT TO SET REASONABLE EXPECTATIONS PRIOR TO PROCEDURE. STATUS: INITIATED DATE: 10/26/2024 11. MEASURABLE GOALS FOR WOUND HEALING AND/OR HYPERBARIC OXYGEN THERAPY : - IMPLEMENT PROTOCOLS TO PROMOTE HEALING AND IMPEDE FURTHER INJURY STATUS: INITIATED DATE: 10/26/2024 12. DURATION/FREQUENCY OF WOUND CARE VISITS : - 1X WEEKLY FOR 30 DAYS STATUS: INITIATED DATE: 10/26/2024 PLAN CBC ORDERED ONCE LINEZOLID COURSE IS FINISHED RECOMMEND SCHEDULE US AND VASCULAR F/U DRESSING WITH COLLAGEN AND HYDROFERA BLUE RECHECK 1 WEEK ELECTRONIC SIGNATURE(S) SIGNED BY: DATE: KARON SIMON PA-C 11/19/2024 07:44:33 (PT) ENTERED BY: KARON SIMON PA-C ON 11/19/2024 07:44:19 (PT) WE[facility] MEDINA [id number] 1955
== END ==
PROVIDERS: PCP Family Medicine; Referring Provider Family Medicine; Visit Provider Physician Assistant
DX: I73.9 Peripheral vascular disease, unspecified (principal); L97.322 Non-pressure chronic ulcer of left ankle with fat layer exposed; F17.200 Nicotine dependence, unspecified, uncomplicated; L20.9 Atopic dermatitis, unspecified; L53.8 Other specified erythematous conditions; R60.0 Localized edema
CPT/HCPCS: 11042; 99213

== ENCOUNTER → 2024-11-28 11:19 | Outpatient (CLI) | payer MEDICARE, MEDICAID, SELFPAY ==
[2023-05-05 22:50] VITALS: PULSE 49; RESP 19; O2SAT 94
== END ==
PROVIDERS: PCP Family Medicine; Referring Provider Physician Assistant; Visit Provider Surgery
DX: L97.322 Non-pressure chronic ulcer of left ankle with fat layer exposed (principal); I73.9 Peripheral vascular disease, unspecified; L53.9 Erythematous condition, unspecified; R60.0 Localized edema; I10 Essential (primary) hypertension; F17.210 Nicotine dependence, cigarettes, uncomplicated
CPT/HCPCS: 11042; 99213

== ENCOUNTER → 2024-12-07 13:38 | Outpatient (CLI) | payer MEDICARE, MEDICAID, SELFPAY ==
[2024-12-04 13:03] VITALS: PULSE 49; RESP 19; O2SAT 94
--- NOTE | 2024-12-07 | OV.WND_ITS ---
PROGRESS NOTE DETAILS PATIENT NAME: WEST MEDINA PATIENT NUMBER: [id number] CLINICIAN: SANDY GRACIA RN PATIENT DATE OF : 1955 PHYSICIAN / SKEIN BLEACHER: KARON SIMON PA-C PATIENT SUBJECTIVE CHIEF COMPLAINT THIS INFORMATION WAS OBTAINED FROM THE PATIENT. RIGHT NOW, I HAVE A 4 OUT OF 10 PAIN. GENERAL NOTES LEFT MEDIAL ANKLE ULCER. ALLERGIES BENADRYL (REACTION: BURN LIKE DERMAL REACTION) HPI THIS INFORMATION WAS OBTAINED FROM THE PATIENT. LOCATION: LEFT MEDIAL ANKLE DURATION: 02/18/2024 CONTEXT: ARTERIAL THE PATIENT IS A 69-YEAR-OLD MALE WITH HISTORY OF SUBSTANCE ABUSE, TOBACCO USE, PAD, AND HYPERTENSION WHO RETURNS TO WOUND CLINIC FOR FOLLOW UP OF ARTERIAL ULCER OF THE LEFT ANKLE. THE PATIENT IS RECEIVING DRESSING CHANGES WITH COLLAGEN AND HYDROFERA BLUE AND RECENTLY COMPLETED A COURSE OF LINEZOLID. HE REPORTS THAT THE PAIN IS SLIGHTLY IMPROVED AND THE DRAINAGE IS MUCH IMPROVED. HE DENIES HAVING ANY FEVER OR CHILLS. THE PATIENT REPORTS A DECREASED APPETITE AND IS TAKING PROTEIN SUPPLEMENTS. PAST HISTORY IS REMARKABLE FOR HAVING ECZEMA. THE PATIENT IS A CURRENT EVERY DAY CIGARETTE SMOKER. PREVIOUS ELADIA ON THE RIGHT WAS 0.88 AND INDICATED PAD ON THE LEFT. HE HAD TWO STENTS PLACED IN LEFT LEG IN JUNE 2024 AND UNDERWENT LEFT FEM-POP BYPASS ON AUGUST 31, 2024. HE HAS A FOLLOW UP APPOINTMENT WITH VASCULAR SURGERY NEXT WEEK 12/11/24. THE PATIENT IS A CURRENT CIGARETTE SMOKER. RECENT LABS WERE REVIEWED AND HE WAS FOUND TO HAVE MILD ANEMIA, NORMAL GFR AND NORMAL LFTS. ON EXAM TODAY THE ULCER IS DEVELOPING GRANULATION TISSUE IN MEASUREMENTS ARE IMPROVED, NO SIGN OF INFECTION. THE PATIENT IS CURRENTLY RESIDING AT [facility] IN [place]. LABS: 10/26/24: CULTURES GREW ENTEROCOCCUS FAECALIS 10/04/24: X-RAY RIGHT ANKLE SHOWS NO ABNORMALITIES 10/04/24: VEIN ULTRASOUND SHOWS SHORT NONOCCLUSIVE THROMBUS DISTAL L SUPERFICIAL FEMORAL VEIN 05/24/24: ARTERIAL DOPPLER: HIGH-GRADE STENOSIS IN THE MID RIGHT SUPERFICIAL FEMORAL ARTERY. OCCLUDED LEFT SFA AND POPLITEAL ARTERIES WITH AT LEAST 2 VESSEL RUNOFF IN THE CALF THROUGH COLLATERALS 01/03/24: CULTURE GREW MIXED SKIN DESIRAE MEDICAL HISTORY THIS INFORMATION WAS OBTAINED FROM THE CHART, PATIENT. PATIENT HAS A MEDICAL HISTORY OF: HYPERTENSION [facility] [id number] 1955 RHABDOMYOLYSIS HYPOGONADISM URINARY HESITANCY CHRONIC LOW BACK PAIN ANEMIA RASH PRURITUS SUBSTANCE USE DISORDER MELANOMA, FACE PAD SURGICAL HISTORY THIS INFORMATION WAS OBTAINED FROM THE PATIENT. PATIENT HAS A SURGICAL HISTORY OF: SPINAL SURGERIES- ABDOMINAL HERNIA REPAIR- SKIN CANCER REMOVAL- AORTOILIAC STENT- 06/26/2024 (BILATERAL LOWER EXTREMITIES) EXTERNAL COMMON ILIAC STENT- 06/26/2024 (LEFT LOWER EXTREMITY) OBJECTIVE VITALS HEIGHT/LENGTH: 69 IN (175.26 CM), WEIGHT: 115.3 LBS (52.41 KGS), BMI: 17, TEMPERATURE: 99.0 ?F (37.22 ?C), PULSE: 65 BPM, RESPIRATORY RATE: 16 BREATHS/MIN, BLOOD PRESSURE: 140/83 MMHG, PULSE OXIMETRY: 93 %. PHYSICAL EXAM CONSTITUTIONAL: GENERALIZED WEAKNESS. IN NO APPARENT DISTRESS. GOOD ATTENTION TO HYGIENE AND BODY HABITS. ALERT AND ORIENTED X 3. WELL NOURISHED. VITAL SIGNS REVIEWED AND NOTED. HYPERTENSIVE. PULSE RATE AND RHYTHM REGULAR. AFEBRILE. THIN. WELL DEVELOPED, WELL NOURISHED, AND IN NO ACUTE DISTRESS. ALERT AND ORIENTED X3. AMBULATES AND IS ABLE TO CHANGE POSITION WITHOUT ASSISTANCE. ALERT AND ORIENTED X 3. RESPIRATORY: EVEN RESPIRATIONS WITHOUT USE OF ACCESSORY MUSCLES. NO INTERCOASTAL RETRACTIONS NOTED. EVEN AND NON LABORED RESPIRATION. CARDIOVASCULAR: SEE LOWER EXTREMITY ASSESSMENT WHEN APPLICABLE. THERE IS NO PERIPHERAL EDEMA, CYANOSIS OR PALLOR. EXTREMITIES ARE WARM AND WELL PERFUSED. CAPILLARY REFILL IS LESS THAN 2 SECONDS. INTEGUMENTARY (HAIR, SKIN): B/L LOWER LEGS WITH ECZEMA . SEE WOUND DESCRIPTION. NEUROLOGICAL: DECREASED LOWER EXTREMITY SENSATION. PSYCHIATRIC: ORIENTATION TO TIME, PLACE AND PERSON: NORMAL AFFECT WITH NORMAL THOUGHT PATTERN. MOOD AND AFFECT: NORMAL AFFECT WITH NORMAL THOUGHT PATTERN. WOUND ASSESSMENT(S) WOUND #3 LEFT, MEDIAL ANKLE IS A CHRONIC FULL THICKNESS ARTERIAL ULCER ACQUIRED ON 02/18/2024 AND HAS RECEIVED A STATUS OF NOT HEALED. INITIAL WOUND ENCOUNTER MEASUREMENTS ARE 0.9CM LENGTH X 1.5CM WIDTH X 0.2 CM DEPTH, WITH AN AREA OF 1.35 SQ CM AND A VOLUME OF 0.27 CUBIC CM.INITIAL WOUND ENCOUNTER [facility] [id number] 1955 PREVIOUS MEASUREMENTS FROM 11/28/2024 ARE 1.1CM LENGTH X 1.8CM WIDTH X 0.2CM DEPTH, WITH AN AREA OF 1.98 SQ CM AND A VOLUME OF 0.396 CUBIC CM. ADIPOSE IS EXPOSED. NO TUNNELING HAS BEEN NOTED. NO SINUS TRACT HAS BEEN NOTED. NO UNDERMINING HAS BEEN NOTED. THERE IS A SMALL AMOUNT OF SEROSANGUINEOUS DRAINAGE NOTED WHICH HAS NO ODOR. THE PATIENT REPORTS A WOUND PAIN OF LEVEL 8/10. THE WOUND MARGIN IS ROLLED WOUND BED HAS YES, BRIGHT RED, PINK, FIRM, GRANULATION, YES SLOUGH, NO ESCHAR, NO EPITHELIALIZATION. THE PERIWOUND SKIN EXHIBITED EDEMA, RASH AND ERYTHEMA. THE PERIWOUND SKIN DID NOT EXHIBIT BRAWNY INDURATION, EXCORIATION, INDURATION, CALLUS, CREPITUS, FLUCTUANCE, MACERATION, ATROPHIE SCOTT, CYANOSIS, ECCHYMOSIS, HEMOSIDEROSIS, PALLOR AND RUBOR. THE PERIWOUND SKIN WAS DRY/SCALY. THE PERIWOUND SKIN WAS NOT FRIABLE AND MOIST. THE TEMPERATURE OF THE PERIWOUND SKIN IS WARM. PERIWOUND SKIN DOES NOT EXHIBIT SIGNS OR SYMPTOMS OF INFECTION. LOCAL PULSE IS DOPPLER. ADDITIONAL INFORMATION OTHER DEVITALIZED TISSUE PRESENT: BIOFILM ELADIA/VASCULAR COMPLETED?: FOLLOWED BY FIL[facility]ERTO VASCULAR. ASSESSMENT ACTIVE PROBLEMS ICD-10 (ENCOUNTER DIAGNOSIS) L97.322 - NON-PRESSURE CHRONIC ULCER OF LEFT ANKLE WITH FAT LAYER EXPOSED (ENCOUNTER DIAGNOSIS) F17.200 - NICOTINE DEPENDENCE, UNSPECIFIED, UNCOMPLICATED (ENCOUNTER DIAGNOSIS) I73.9 - PERIPHERAL VASCULAR DISEASE, UNSPECIFIED (ENCOUNTER DIAGNOSIS) L20.9 - ATOPIC DERMATITIS, UNSPECIFIED PROCEDURES WOUND #3 WOUND #3 (ARTERIAL ULCER) IS LOCATED ON THE LEFT, MEDIAL ANKLE. A SELECTIVE DEBRIDEMENT WITH A TOTAL AREA DEBRIDED OF 1.35 SQ CM. WAS PERFORMED BY KARON SIMON PA-C. SUBCUTANEOUS WAS REMOVED ALONG WITH DEVITALIZED TISSUE: BIOFILM, EXUDATE AND SLOUGH. THE FOLLOWING INSTRUMENT(S) WERE USED: CURETTE. PAIN CONTROL WAS ACHIEVED USING EMLA LIDOCAINE/PRILOCAINE 2.5%/2.5%. A TIME OUT WAS CONDUCTED PRIOR TO THE START OF THE PROCEDURE. A MINIMAL AMOUNT OF BLEEDING WAS CONTROLLED WITH PRESSURE. THE PROCEDURE WAS TOLERATED WELL WITH A PAIN LEVEL OF 0 THROUGHOUT AND A PAIN LEVEL OF 0 FOLLOWING THE PROCEDURE. POST DEBRIDEMENT MEASUREMENTS: 0.9CM LENGTH X 1.5CM WIDTH X 0.2CM DEPTH; WITH AN AREA OF 1.35 SQ CM AND A VOLUME OF 0.27 CUBIC CM. PLAN WOUND ORDERS: WOUND #3 LEFT, MEDIAL ANKLE HAND HYGIENE HAND HYGIENE - WASH HANDS BEFORE AND AFTER WOUND CARE. CALL THE WOUND CENTER AT [phone] IF YOU HAVE SIGNS OR SYMPTOMS OF INFECTION, FEVER CHILLS OR SHAKES, INCREASED DRAINAGE, INCREASED ODOR OR UNUSUAL REDNESS. AFTER WOUND CENTER HOURS PLEASE NOTIFY YOUR PCP OR GO TO THE EMERGENCY ROOM. CLEANSER CLEANSE WOUND WITH NORMAL SALINE MAY SHOWER, LEAVE WOUND DRESSING INTACT. COVER WOUND DRESSING WITH A WATERPROOF BARRIER. KEEP DRESSING DRY. NO BATHS PLEASE. PROCEDURE / ANESTHETIC [facility] [id number] 1955 5% TOPICAL LIDOCAINE TO WOUND BED PRIOR TO PROCEDURE, IN CLINIC ONLY. TOPICAL TREATMENTS OTHER ORDER: - 1:1:1 MIXTURE OF VENELEX, AANDD, LOTRISONE CREAM TO ARACELIS-WOUND. YOU MAY SWITCH TO BARRIER CREAM IF YOU NOTICE INCREASED MOISTURE, TO ASSIST WITH DRYING THE SKIN OUT. DRESSING ORDERS APPLY DRESSING(S) AND SECURE WITH: - COLLAGEN MOISTENED WITH SALINE, THEN HYDROFERA BLUE CLASSIC MOISTENED WITH SALINE AND WRUNG OUT. SECURE WITH ROLL GAUZE. DRESSING CHANGE FREQUENCY CHANGE DRESSING EVERY OTHER DAY. - THREE TIMES PER WEEK AT [facility]. CHANGE DRESSING IF IT BECOMES SOILED OR WET. ADDITIONAL ORDERS: DIETARY TAKE VITAMIN C 1000MG BY MOUTH DAILY. TAKE ZINC 25MG BY MOUTH DAILY. INCREASE THE PROTEIN IN YOUR DIET. FOLLOW-UP APPOINTMENTS RETURN APPOINTMENT 1 WEEK SCRIBING ATTESTATION I ATTEST, THE NURSE, THAT I SCRIBED THESE ORDERS FOR THE WOUND CARE PROVIDER. PROVIDER REVIEW AND ATTESTATION: REVIEWED AND EVALUATED LABS. REVIEWED HOSPITAL RECORDS. DISCUSSED THE PLAN OF CARE @ BEDSIDE WITH - PATIENT I AGREE AND ATTEST TO THE ABOVE INFORMATION PROVIDED FROM OTHER LICENSED PROFESSIONALS. PLAN OF CARE: 01. ENSURE/ESTABLISH OPTIMAL BLOOD FLOW : - COMPLETE LOWER EXTREMITY ASSESSMENT STATUS: CONTINUED DATE: 11/28/2024 - ORDER VASCULAR CONSULT FOR EVALUATION/TREATMENT AND/OR NON-INVASIVE VASCULAR TESTING. - CURRENTLY BEING TREATED AT [facility]. REQUESTED NOTES. STATUS: COMPLETED DATE: 10/26/2024 02. ASSESS FOR/TREAT INFECTION : - EVALUATE FOR SIGNS AND SYMPTOMS OF INFECTION AND DOCUMENT FINDINGS. STATUS: CONTINUED DATE: 11/28/2024 - OBTAIN CULTURE AND SENSITIVITY (CANDS) OR TISSUE CULTURE WHEN INFECTION IS SUSPECTED. (NOTE:) CONSIDER REPEATING WHEN WOUND HEALING <40% AFTER 30 DAYS OF WOUND CARE. STATUS: CONTINUED DATE: 11/28/2024 03. DEBRIDE WEEKLY OR MORE OFTEN PRN : - EVALUATE PATIENT IN CENTER WEEKLY TO ASSESS WOUND BED AND MARGINS FOR NEED FOR DEBRIDEMENT. STATUS: CONTINUED DATE: 11/28/2024 - DEBRIDEMENT BY ANY METHOD TO REMOVE DEVITALIZED/NECROTIC TISSUE TO PROMOTE HEALING AND PREVENT FURTHER COMPLICATIONS. GOAL IS TO STIMULATE AND/OR MAINTAIN ACUTE PHASE OF WOUND HEALING BY REDUCING BACTERIAL BURDEN AND DEVITALIZED/NON-VIABLE TISSUE. STATUS: CONTINUED DATE: 11/28/2024 04. OPTIMIZE GLUCOSE CONTROL AND NUTRITION : - ORDER/REVIEW PERTINENT LABS TO EVALUATE RENAL FUNCTION, GLUCOSE CONTROL, AND NUTRITIONAL STATUS. STATUS: CONTINUED DATE: 11/28/2024 - COMPLETE A NUTRITION RISK ASSESSMENT. STATUS: COMPLETED DATE: 10/26/2024 05. OFFLOADING PLAN : - REVIEWED, NOT APPLICABLE 06. OPTIMIZE HOST FACTORS: - ASSESS AND REVIEW PATIENT HISTORY FOR WOUND ETIOLOGY, CO-MORBID CONDITIONS, MEDICATION REGIME, AND [facility] [id number] 1955 SMOKING HISTORY. STATUS: CONTINUED DATE: 11/28/2024 07. DRESSING SELECTION : - EVALUATE FOR DRESSING-RELATED FACTORS, SUCH AVAILABILITY, WEAR TIME, ADAPTABILITY AND USE TO BETTER OPTIMIZE WOUND HEALING AND PATIENT COMPLIANCE. STATUS: CONTINUED DATE: 11/28/2024 08. ADVANCED MODALITIES : - SET TREATMENT GOALS ACCORDING TO PATIENT AND/OR CAREGIVER?S ABILITY/ COMPLIANCE. STATUS: CONTINUED DATE: 11/28/2024 - RE-EVALUATE PLAN OF CARE IF NO EVIDENCE OF HEALING (40% IN 4 WEEKS). STATUS: CONTINUED DATE: 11/28/2024 09. FALL PREVENTION : - COMPLETE FALL ASSESSMENT. STATUS: COMPLETED DATE: 10/26/2024 - PROVIDE EDUCATION MATERIALS/DISCUSS PREVENTION STRATEGIES APPROPRIATE. STATUS: CONTINUED DATE: 11/28/2024 10. PAIN MANAGEMENT : - COMPLETE PAIN ASSESSMENT STATUS: COMPLETED DATE: 10/26/2024 - PREPARE PATIENT TO SET REASONABLE EXPECTATIONS PRIOR TO PROCEDURE. STATUS: CONTINUED DATE: 11/28/2024 11. MEASURABLE GOALS FOR WOUND HEALING AND/OR HYPERBARIC OXYGEN THERAPY : - IMPLEMENT PROTOCOLS TO PROMOTE HEALING AND IMPEDE FURTHER INJURY STATUS: CONTINUED DATE: 11/28/2024 12. DURATION/FREQUENCY OF WOUND CARE VISITS : - 1X WEEKLY FOR 30 DAYS STATUS: CONTINUED DATE: 11/28/2024 PLAN LIGHT DEBRIDEMENT TODAY CONTINUE PLAN TO F/U WITH VASCULAR NEXT WEEK DRESSING WITH COLLAGEN, HYDROFERA BLUE QOD RECHECK 1 WEEK ELECTRONIC SIGNATURE(S) SIGNED BY: DATE: KARON SIMON PA-C 12/10/2024 08:18:46 (PT) ENTERED BY: KARON SIMON PA-C ON 12/10/2024 08:18:30 (PT) [facility] [id number]
== END ==
PROVIDERS: PCP Family Medicine; Referring Provider Physician Assistant; Visit Provider Physician Assistant
DX: I73.9 Peripheral vascular disease, unspecified (principal); L97.322 Non-pressure chronic ulcer of left ankle with fat layer exposed; F17.200 Nicotine dependence, unspecified, uncomplicated; L20.9 Atopic dermatitis, unspecified; R23.4 Changes in skin texture; R60.0 Localized edema; L53.8 Other specified erythematous conditions
CPT/HCPCS: 97597; 99213

== ENCOUNTER → 2024-12-21 13:43 | Outpatient (CLI) | payer MEDICARE, MEDICAID, SELFPAY ==
[2024-12-04 13:03] VITALS: PULSE 49; RESP 19; O2SAT 94
== END ==
PROVIDERS: PCP Family Medicine; Referring Provider Family Medicine; Visit Provider Physician Assistant
DX: L97.322 Non-pressure chronic ulcer of left ankle with fat layer exposed (principal); I73.9 Peripheral vascular disease, unspecified; R60.0 Localized edema; M25.572 Pain in left ankle and joints of left foot; I10 Essential (primary) hypertension; F17.210 Nicotine dependence, cigarettes, uncomplicated; F19.10 Other psychoactive substance abuse, uncomplicated
CPT/HCPCS: 97597; 99214

== ENCOUNTER 2024-12-27 12:10 | Emergency (ER) | payer MEDICARE, SELFPAY ==
[2024-12-04 13:03] VITALS: PULSE 49; RESP 19; O2SAT 94
[2024-12-27] VITALS (11 sets, daily range): BP systolic 136–180; BP diastolic 68–100; PULSE 43–63; RESP 8–16; TEMP 37.1; O2SAT 98–100; BMI 16.8
--- NOTE | 2024-12-27 12:28 | ED_ITS ---
HPI - General Adult General Chief complaint: Fall Stated complaint: Fall,hit head Time Seen by Provider: 12/27/24 12:20 History of Present Illness HPI narrative: 69-year-old male resident of [facility], had a fall last night striking face and head, unclear if he had loss of consciousness, was unable to get up from the floor, discovered by staff this morning, transport by EMS. He has pain to his posterior neck. He has pain to his scalp and face and upper back and anterior chest. He takes Plavix blood thinner medications per triage medication list from his nursing facility. Modified trauma activation by mechanism. Related Data Home Medications Medication Instructions Recorded Confirmed cholecalciferol (vitamin D3) 50 50 mcg PO DAILY 08/22/23 07/25/24 mcg (2,000 unit) tablet (Vitamin D3) diphenhydramine-zinc acetate 2 applic topical 3XD PRN itch 08/22/23 07/25/24 %-0.1 % topical cream (Benadryl Extra Strength) lisinopril 40 mg tablet 40 mg PO DAILY 08/22/23 07/25/24 nifedipine 30 mg tablet,extended 30 mg PO DAILY 08/22/23 07/25/24 release 24 hr tamsulosin 0.4 mg capsule 0.4 mg PO DAILY 08/22/23 07/25/24 testosterone 1 % (50 mg/5 gram) 1 packet transdermal DAILY 08/22/23 07/25/24 transdermal gel packet clotrimazole-betamethasone 1 1 applic topical ONCE 01/04/24 07/25/24 %-0.05 % topical cream doxycycline hyclate 100 mg capsule 100 mg PO BID 01/04/24 07/25/24 aspirin 81 mg chewable tablet 1 tab PO DAILY 07/25/24 07/25/24 atorvastatin 40 mg tablet 40 mg PO DAILY 07/25/24 07/25/24 loratadine 10 mg tablet 10 mg PO DAILY 07/25/24 07/25/24 nicotine 7 mg/24 hr daily 1 patch transdermal ONCE PM 07/25/24 07/25/24 transdermal patch Allergies Allergy/AdvReac Type Severity Reaction Status Date / Time No Known Drug Allergies Allergy Verified 12/27/24 12:21 Patient History Medical History Lumbar stenosis with neurogenic claudication History of substance abuse Hypertension COPD (chronic obstructive pulmonary disease) Lumbar stenosis Facet arthropathy, lumbar Lumbar post-laminectomy syndrome Closed L4 vertebral fracture Social History Smoking Status: Current every day smoker tobacco type: cigarettes alcohol intake frequency: 0-2 drinks per day Exam Narrative Exam Narrative: GENERAL: Well-developed patient, in mild distress. HEAD: Atraumatic. Normocephalic. Facial abrasions EYES: Pupils equal round and reactive. Extraocular motions intact. No scleral icterus. No injection or drainage. ENT: Nose without bleeding, purulent drainage. Throat without erythema, tonsillar hypertrophy or exudate. Airway patent. NECK: Trachea midline. Non tender. Posterior neck discomfort, no step-off. Placed in C-collar at triage here in the emergency department. CARDIOVASCULAR: Regular rate and rhythm without murmurs, gallops, or rubs. RESPIRATORY: Clear to auscultation. Breath sounds equal bilaterally. No wheezes, rales, or rhonchi. GASTROINTESTINAL: Abdomen soft, non-tender, nondistended. EXTREMITIES: No edema or joint tenderness. BACK: Nontender without deformity or crepitance. No flank tenderness. NEURO: AOx3. Motor functions grossly nonfocal SKIN: No rash or erythema of visible areas Initial Vital Signs Initial Vital Signs: Vital Signs Temperature 98.8 F 12/27/24 12:11 Pulse Rate 58 L 12/27/24 12:11 Respiratory Rate 12 12/27/24 12:11 Blood Pressure 162/78 H 12/27/24 12:11 Pulse Oximetry 100 12/27/24 12:11 Oxygen Delivery Method Room Air 12/27/24 12:11 Course Orders Ordered: ED Orders 12/27/24 12:26 CT chest abd pel w con Stat EKG-12 Lead Stat 12/27/24 12:27 CT cervical spine wo con Stat CT facial bones wo con Stat CT head/brain wo con Stat 12/27/24 12:48 Complete Blood Count AUTO DIFF Stat Comprehensive Metabolic Panel Stat Ethanol (ETOH) Stat Lactate (Lactic Acid) Stat Lipase Stat PTT Partial Thromboplastin Carlos Stat Prothrombin Time INR Stat Discontinued Medications Albuterol (Albuterol 2.5 Mg/3 Ml Neb (Adult)) 2.5 mg INH NOW ONE Stop: 12/27/24 15:33 Last Admin: 12/27/24 15:52 Dose: 2.5 mg Documented By: AMARI Albuterol (Albuterol Hfa Prepack) 1 box MISC DIRECTED ONE Stop: 12/27/24 15:39 Last Admin: 12/27/24 15:53 Dose: 1 box Documented By: AMARI Diphtheria/Tetanus/Acell Pertussis (Tet,Diph,Pertuss(Acell),Vac/Pf 0.5 Ml Syringe) 0.5 ml IM .ONCE ONE Stop: 12/27/24 12:27 Last Admin: 12/27/24 14:11 Dose: 0.5 ml Documented By: BEATA Vital Signs Vital signs: Vital Signs - 8 hr 12/27/24 13:30 12/27/24 13:30 12/27/24 14:00 Pulse Rate 46 L Respiratory Rate 9 L Blood Pressure 140/68 136/71 Pulse Oximetry 98 Oxygen Delivery Method 12/27/24 14:00 12/27/24 15:53 12/27/24 17:15 Pulse Rate 43 L 52 L Respiratory Rate 8 L 16 Blood Pressure 142/70 H Pulse Oximetry 100 98 Oxygen Delivery Method Room Air Room Air 12/27/24 17:15 Pulse Rate 63 Respiratory Rate Blood Pressure Pulse Oximetry 99 Oxygen Delivery Method Medical Decision Making Lab Data 12/27/24 12:48 12/27/24 12:48 Labs: Lab Results 12/27/24 Range/Units 12:48 WBC 9.4 (4.5-11.0) X10^3/uL RBC 4.27 L (4.5-5.9) X10^6/uL Hgb 12.3 L (13.5-17.5) g/dL Hct 37.9 L (41-53) % MCV 88.6 (80-100) fL MCH 28.9 (26-34) PG MCHC 32.6 (30-36) % RDW 17.7 H (11.6-14.8) % Plt Count 167 (150-400) X10^3/uL Neut % (Auto) 73.5 (50-75) % Lymph % (Auto) 20.2 L (25-40) % [place] % (Auto) 5.3 (3-14) % Eos % (Auto) 0.6 L (2-4) % Baso % (Auto) 0.4 (0-2) % Neut # (Auto) 6900 (3640-9693) /uL Lymph # (Auto) 1900 (1161-1546) /uL [place] # (Auto) 500 (0-900) /uL Eos # (Auto) 100 (0-450) /uL Baso # (Auto) 0 (0-100) /uL PT 11.7 (9.4-12.5) SECONDS INR 1.0 (0.9-1.3) APTT 37 H (25.1-36.5) SECONDS Sodium 139 (137-145) mmol/L Potassium 3.6 (3.4-5.1) mmol/L Chloride 104 (98-107) mmol/L Carbon Dioxide 25 (22-32) mmol/L BUN 27 H (9-20) mg/dL Creatinine 1.05 (0.66-1.25) mg/dL Estimated GFR > 60 (>60) mL/min BUN/Creatinine Ratio 25.7 H (6-22) Glucose 89 (80-110) mg/dL Lactate 1.8 (0.7-2.1) mmol/L Calcium 9.5 (8.4-10.2) mg/dL Total Bilirubin 0.4 (0.2-1.3) mg/dL AST 26 (17-59) IU/L ALT 18 (<50) IU/L Alkaline Phosphatase 90 (38-126) U/L Total Protein 7.6 (6.3-8.2) g/dL Albumin 4.5 (3.5-5.0) g/dL Globulin 3.1 (1.7-4.1) g/dL Albumin/Globulin Ratio 1.5 (1.0-2.8) Lipase 43 (23-300) U/L Ethyl Alcohol < 10 ( - 10) mg/dL Imaging Data CT scan - head: Radiologist's Impression: [address] [address] [address] Scan Report Signed Patient: Jovani De La Vega MR#: [id number] : 1955 Acct:[id number] Age/Sex: 69 / M Date of Service: 12/27/24 Loc: ED Accession Number: [id number] Procedure: CT head/brain wo con Ordering Provider: Tacho Escobar MD PROCEDURE: CT HEAD/BRAIN WO CON INDICATIONS: Trauma TECHNIQUE: Noncontrast 4.5 mm thick angled axial sections acquired from the foramen magnum to the vertex, with coronal and sagittal reformats. For radiation dose reduction, the following was used: automated exposure control, adjustment of mA and/or kV according to patient size. COMPARISON: None. FINDINGS: Image quality: Diagnostic. CSF spaces: Basal cisterns are patent. No extra-axial fluid collections. The ventricles are symmetric in size and shape. Brain: No intracranial bleeds or masses. There is minimal cerebral volume loss for age, with resultant ventricular and sulcal prominence. There are mild periventricular and deep white matter chronic small vessel ischemic changes. There is intracranial internal carotid artery atherosclerosis. Skull and face: Calvarium and visualized facial bones appear intact, without suspicious lesions. Sinuses: Visualized sinuses and mastoids are clear. IMPRESSION: No acute intracranial pathology. Approved by: Meño Sampson M.D. on 12/27/2024 at 13:15 CT face: Radiologist's Impression: [place] [address] CT Scan Report Signed Patient: Jovani De La Vega MR#: [id number] : 1955 Acct:[id number] Age/Sex: 69 / M Date of Service: 12/27/24 Loc: ED Accession Number: [id number] Procedure: CT facial bones wo con Ordering Provider: Tacho Escobar MD PROCEDURE: CT FACIAL BONES WO CON INDICATIONS: face trauma TECHNIQUE: Noncontrast 2.5 mm thick axial images acquired from the mandible through the frontal sinuses, with coronal and sagittal reformatting. For radiation dose reduction, the following was used: automated exposure control, adjustment of mA and/or kV according to patient size. COMPARISON: None. FINDINGS: Image quality: Excellent. Bones and teeth: Orbital richards are intact. Sinus richards show no fracture or deformity. Nasal bones and septum are intact. Visualized portions of the mandible demonstrate no fractures or subluxation. Zygomatic arches are intact. Pterygoid plates are intact. Visualized portions of the skull base and auditory canals are intact. Patient is edentulous. Sinuses: Small right maxillary sinus mucosal tension cysts. Paranasal sinuses are aerated, without fluid levels, mucosal thickening, or mucoceles. Mastoid air cells are aerated. Soft tissues: No edema, masses, or fluid collections. No enlarged lymph nodes. No soft tissue lacerations or debris. Vascular: Visualized vascular structures appear normal in the absence of contrast. Bony vascular foramina and canals are intact. IMPRESSION: No acute facial fracture. Approved by: Meño Sampson M.D. on 12/27/2024 at 13:20 CT - cervical spine: Radiologist's Impression: [address] [address] [address] Scan Report Signed Patient: Jovani De La Vega MR#: [id number] : 1955 Acct:[id number] Age/Sex: 69 / M Date of Service: 12/27/24 Loc: ED Accession Number: [id number] Procedure: CT cervical spine wo con Ordering Provider: Tacho Escobar MD PROCEDURE: CT CERVICAL SPINE WO CON INDICATIONS: Trauma TECHNIQUE: Noncontrast 3 mm thick sections acquired from the skull base to the T4 level. Sagittal and coronal reformats were then constructed. For radiation dose reduction, the following was used: automated exposure control, adjustment of mA and/or kV according to patient size. COMPARISON: None. FINDINGS: Image quality: Excellent. Bones: No acute fractures or dislocations. Visualized superior ribs are intact. Generalized osteopenia. Multilevel disc space narrowing and degenerative endplate changes. Multilevel uncovertebral joint and facet hypertrophy. Soft tissues: Prevertebral soft tissues are normal in thickness. No paravertebral hematomas. No apical pneumothoraces. Bilateral emphysematous changes in the included upper lobes. IMPRESSION: No acute displaced fracture or traumatic subluxation. Approved by: Meño Sampson M.D. on 12/27/2024 at 13:17 CT chest abdomen and pelvis: Radiologist's Impression: Close Cervical Spine CT (Signed) Meño Sampson - 12/27/[address] (Signed) Meño Sampson - 12/27/[address] (Signed) Meño Sampson - 12/27/24 Chest/Abdomen/Pelvis CT (Signed) Kilo Dao - 12/27/24 Launch?Image [address] [address] [address] Scan Report Signed Patient: Jovani De La Vega MR#: [id number] : 1955 Acct:[id number] Age/Sex: 69 / M Date of Service: 12/27/24 Loc: ED Accession Number: [id number] Procedure: CT chest abd pel w con Ordering Provider: Tacho Escobar MD PROCEDURE: CT CHEST ABD PEL W CON INDICATIONS: TRAUMA TECHNIQUE: After the administration of intravenous contrast, 5 mm thick sections acquired from the lung apices to the symphysis. 2.5 mm thick coronal and sagittal reformats were acquired. Additional 7 mm thick coronal maximum intensity projection (MIP) reformats acquired through the lungs. Optional 10-minute delayed imaging may be performed from the kidneys to the bladder. For radiation dose reduction, the following was used: automated exposure control, adjustment of mA and/or kV according to patient size. COMPARISON: [facility], CT, CT LOW DOSE LUNG CA SCREENING, 05/10/2023, 12:08. FINDINGS: Image quality: Diagnostic. CHEST: Lower Neck: No enlarged lymph nodes. Thyroid: No thyroid nodules which require sonographic evaluation. Axillae: No enlarged lymph nodes. Chest Wall: No subcutaneous gas. Lungs and Pleura: No pulmonary contusions or lacerations. No acute airspace opacities. No pneumothorax or hemothorax. [id number] centrilobular emphysema. Interval collapse of the right middle lobe with traction bronchiectasis present. Mediastinum: No mediastinal hematomas. Heart size is normal. No pericardial effusion. Thoracic aorta and pulmonary arteries demonstrate normal size and enhancement. No mediastinal or hilar adenopathy. Esophagus is normal in caliber. No hiatal hernia. ABDOMEN: Liver: No lacerations. Gallbladder: No radiopaque gallstones or wall thickening. Biliary ducts: No biliary dilation. Pancreas: Homogenous enhancement. Spleen: Homogenous enhancement without laceration or hematoma. Adrenal Glands: Symmetric enhancement. Kidneys and Ureters: Symmetric enhancement. No hydronephrosis. No solid mass. No complex renal cystic lesion which requires follow up. Stomach and Bowel: Normal colonic caliber, without significant wall thickening. Large diffuse fecal load. Peritoneum: No abnormal intraperitoneal fluid. No free air. Ventral Wall: No hernia. Abdominal Nodes: No retroperitoneal or mesenteric adenopathy by size criteria. Vessels: Aorta and inferior vena cava are normal in size. PELVIS: Pelvic Organs: Unremarkable. Bladder: Normal thickness. Pelvic Nodes: No enlarged lymph nodes. Miscellaneous: No inguinal hernias are seen. Bones: Pelvic ring and hip joints appear intact. Healing anterior right 4th rib fracture. Diffuse osteopenia. Chronic compression fractures of T6, T12, L1, L4, Diffuse osteopenia with numerous chronic compression fractures, including a severe T6 compression, mild T12 and L1 compressions, minimal L2 compression, and moderate to severe L4 compression. No acute compression fractures. IMPRESSION: 1. No evidence of traumatic injury to the chest, abdomen or pelvis. 2. Findings consistent with severe osteoporosis, with numerous chronic compression fractures. There is also a healing right rib fracture. 3. [id number] centrilobular emphysema. 4. Interval collapse of the right middle lobe. 5. No acute process in the chest, abdomen, and pelvis. Comment: Recommend follow-up CT chest in 2-3 months to determine whether the right middle lobe remains collapsed. Additionally, recommend pulmonology referral to determine whether bronchoscopy might be indicated in this patient. Dictated by: Kilo Dao M.D. on 12/27/2024 at 13:43 Approved by: Kilo Dao M.D. on 12/27/2024 at 13:55 [facility] Narrative Medical decision making narrative: 69-year-old male with history of chronic anticoagulation with Plavix, no other anticoagulants, resident at nursing facility, had ground level fall last night, unable to get up from the ground, unclear if he had loss of consciousness at that time, has trauma to his face and scalp as well as posterior neck pain anterior chest pain and back pain. Modified trauma activation by mechanism. Primary trauma survey: Airway intact, breathing intact, circulation intact, GCS 15. No neuro deficits. Secondary trauma survey: Please see physical exam sections. CT head, face, cervical spine, chest abdomen and pelvis trauma imaging sequence. Labs pending. Keep NPO for now. CT head noncontrast, no acute changes. See radiology report. CT face noncontrast, no acute changes. See radiology report. CT cervical spine noncontrast, no acute changes. See radiology report. CT chest abdomen and pelvis. Shows no acute chest abdomen and pelvic process. Osteopenia noted. Interval repeat right middle lobe collapse since prior imaging study. No pneumothorax, no hemothorax. No free fluid in the abdomen, no free air in the abdomen, no solid organ injuries, no bony injuries axial or skeletal. See radiology report. [facility] via EMS Discharge Plan Departure Patient Disposition: Home Clinical Impression: Fall from ground level, Contusion of scalp, Contusion of face, Neck strain, Chest wall contusion, Atelectasis of right lung Activity Restrictions/Additional Instructions: Fall from ground level at your nursing facility, discovered this morning, apparently by jail staff. You are unable to get herself up. You had struck her head and had some neck discomfort as well. Otherwise he seemed to have ability to move your arms in your legs. CT trauma screening was performed. CT head showed no scalp or skull or brain injuries. CT face showed no facial bone fractures. CT cervical spine showed neck spine arthritis but no fracture changes. CT chest abdomen and pelvis including the spine in that region showed no acute changes, although there was mention of collapse of the right middle lobe compared to some comparison old studies, of unclear significance. There was no traumatic changes on the CT scan. Further follow up as an outpatient for now. Take Tylenol as needed for pain control. Recheck with your regular jail care provider. Consider use of incentive spirometer and inhaler with spacer, to hopefully open up that segmental regional change in your right lung. Consider repeat chest x- ray early next week at your nursing care facility. Return earlier to the emergency department for change worsening symptoms or any concerns prior. Prescriptions: No Action tamsulosin 0.4 mg capsule 0.4 mg PO DAILY lisinopril 40 mg tablet 40 mg PO DAILY testosterone 1 % (50 mg/5 gram) gel in packet 1 packet transdermal DAILY Patient Comments: [NO ORIGINAL SIG] cholecalciferol (vitamin D3) [Vitamin D3] 50 mcg (2,000 unit) tablet 50 mcg PO DAILY nifedipine 30 mg tablet extended release 24hr 30 mg PO DAILY Benadryl Extra Strength 2-0.1 % cream topical 3XD PRN (Reason: itch) doxycycline hyclate 100 mg capsule 100 mg PO BID clotrimazole-betamethasone 1-0.05 % cream 1 applic topical ONCE atorvastatin 40 mg tablet 40 mg PO DAILY nicotine 7 mg/24 hr patch 24 hour 1 patch transdermal ONCE PM loratadine 10 mg tablet 10 mg PO DAILY aspirin 81 mg tablet,chewable 1 tab PO DAILY Referrals: Roseline Moss DO [Primary Care Provider] - Stand Alone Forms: Patient Portal/API/Survey ED Sign-out Cosign ED Attending Cosignature Attestation: I was immediately available in the department for consultation. This documentation has been reviewed and I agree with assessment and plan. Supervised by Tacho Escobar MD
[2024-12-27 12:57] LABS: Add Manual Diff / Slide Review NO; Basophils Absolute Auto 0 /uL (0-100); Basophils Percent Auto 0.4 % (0-2); Eosinophils Absolute Auto 100 /uL (0-450); Eosinophils Percent Auto 0.6 % (2-4); Hematocrit 37.9 % (41-53); Hemoglobin 12.3 g/dL (13.5-17.5); Lymphocytes Absolute Auto 1900 /uL (1100-4500); Lymphocytes Percent Auto 20.2 % (25-40); Mean Corpuscular HGB Conc 32.6 % (30-36); Mean Corpuscular Hemoglobin 28.9 PG (26-34); Mean Corpuscular Volume 88.6 fL (80-100); Monocytes Absolute Auto 500 /uL (0-900); Monocytes Percent Auto 5.3 % (3-14); Neutrophils Absolute Auto 6900 /uL (1500-7000); Neutrophils Percent Auto 73.5 % (50-75); Platelet Count 167 X10^3/uL (150-400); Red Blood Cell Count 4.27 X10^6/uL (4.5-5.9); Red Cell Distribution Width 17.7 % (11.6-14.8); White Blood Cell Count 9.4 X10^3/uL (4.5-11.0)
[2024-12-27 13:05] LABS: Prothrombin Time 11.7 SECONDS (9.4-12.5)
[2024-12-27 13:08] LABS: PTT Partial Thromboplastin Tim 37 SECONDS (25.1-36.5)
[2024-12-27 13:09] LABS: Lactate (Lactic Acid) 1.8 mmol/L (0.7-2.1)
[2024-12-27 13:10] LABS: Alanine Aminotransferase 18 IU/L (<50); Albumin 4.5 g/dL (3.5-5.0); Albumin Globulin Ratio 1.5 (1.0-2.8); Alkaline Phosphatase 90 U/L (38-126); Aspartate Aminotransferase 26 IU/L (17-59); BUN Creatinine Ratio 25.7 (6-22); Bilirubin Total 0.4 mg/dL (0.2-1.3); Blood Urea Nitrogen 27 mg/dL (9-20); Calcium 9.5 mg/dL (8.4-10.2); Carbon Dioxide 25 mmol/L (22-32); Chloride 104 mmol/L (98-107); Estimated Glomerular Filt Rate > 60 mL/min (>60); Ethanol (ETOH) < 10 mg/dL; Globulin 3.1 g/dL (1.7-4.1); Glucose 89 mg/dL (80-110); HEMOLYSIS 21 (0-50); Lipase 43 U/L (23-300); Potassium 3.6 mmol/L (3.4-5.1); Sodium 139 mmol/L (137-145); Total Protein 7.6 g/dL (6.3-8.2)
[2024-12-27] MEDS: TET,DIPH,PERTUSS(ACELL),VAC/PF 0.5 ML SYRINGE IM (14:11)
--- NOTE | 2024-12-27 15:27 | EKG_ITS ---
[address] [address] Test Date: 2024-12-27 Pat Name: Jovani De La Vega Department: [facility] Room: Gender: Male [employer]: : 1955 Requested By: Order Number: [id number] Reading MD: Aniket Varner Measurements Intervals [place] Rate: 50 P: 89 IN: 130 QRS: 79 QRSD: 102 T: 66 QT: 532 QTc: 485 Interpretive Statements Sinus bradycardia Prolonged QT Electronically Signed On 01-01-2025 20:08:46 PDT by Aniket Varner
[2024-12-27] MEDS: ALBUTEROL 2.5 MG/3 ML NEB (ADULT) INH (15:52)
[2024-12-27] MEDS: ALBUTEROL HFA PREPACK 1 BOX MISC (15:53)
== END 2024-12-27 17:27 | disposition home or self-care (01) ==
PROVIDERS: Emergency Provider Emergency Medicine; PCP Family Medicine
DX: S00.03XA Contusion of scalp, initial encounter (principal); S00.83XA Contusion of other part of head, initial encounter; W18.30XA Fall on same level, unspecified, initial encounter; S16.1XXA Strain of muscle, fascia and tendon at neck level, initial encounter; S20.219A Contusion of unspecified front wall of thorax, initial encounter; J98.11 Atelectasis; F17.200 Nicotine dependence, unspecified, uncomplicated; Y92.129 Unspecified place in nursing home as the place of occurrence of the external cause; Z79.02 Long term (current) use of antithrombotics/antiplatelets; Z23 Encounter for immunization
CPT/HCPCS: 70450; 70486; 71260; 72125; 74177; 80053; 80320; 83605; 83690; 85025; 85610; 85730; 90471; 93005; 94640; 99284; 90715; J7613; Q9967

== ENCOUNTER → 2025-01-04 11:55 | Outpatient (CLI) | payer MEDICARE, MEDICAID, SELFPAY ==
[2024-12-04 13:03] VITALS: PULSE 49; RESP 19; O2SAT 94
== END ==
PROVIDERS: PCP Family Medicine; Referring Provider Family Medicine; Visit Provider Physician Assistant
DX: L97.322 Non-pressure chronic ulcer of left ankle with fat layer exposed (principal); F17.200 Nicotine dependence, unspecified, uncomplicated; R60.0 Localized edema; I10 Essential (primary) hypertension
CPT/HCPCS: 11042; 99213

== ENCOUNTER → 2025-01-14 11:52 | Outpatient (CLI) | payer MEDICARE, SELFPAY ==
[2024-12-04 13:03] VITALS: PULSE 49; RESP 19; O2SAT 94
[2025-01-14 12:33] LABS: Add Manual Diff / Slide Review NO; Basophils Absolute Auto 0 /uL (0-100); Basophils Percent Auto 0.4 % (0-2); Eosinophils Absolute Auto 100 /uL (0-450); Eosinophils Percent Auto 2.2 % (2-4); Hematocrit 32.9 % (41-53); Hemoglobin 10.9 g/dL (13.5-17.5); Lymphocytes Absolute Auto 1000 /uL (1100-4500); Lymphocytes Percent Auto 18.5 % (25-40); Mean Corpuscular HGB Conc 33.2 % (30-36); Mean Corpuscular Hemoglobin 29.8 PG (26-34); Mean Corpuscular Volume 89.9 fL (80-100); Monocytes Absolute Auto 400 /uL (0-900); Neutrophils Absolute Auto 3800 /uL (1500-7000); Neutrophils Percent Auto 70.9 % (50-75); Platelet Count 189 X10^3/uL (150-400); Red Blood Cell Count 3.66 X10^6/uL (4.5-5.9); Red Cell Distribution Width 17.6 % (11.6-14.8); White Blood Cell Count 5.3 X10^3/uL (4.5-11.0)
== END ==
PROVIDERS: PCP Family Medicine; Referring Provider Physician Assistant; Visit Provider Physician Assistant
DX: L03.90 Cellulitis, unspecified (principal)
CPT/HCPCS: 36415; 85025

== ENCOUNTER → 2025-01-18 11:09 | Outpatient (CLI) | payer MEDICARE, SELFPAY ==
[2024-12-04 13:03] VITALS: PULSE 49; RESP 19; O2SAT 94
== END ==
LOC: WC 11:11
PROVIDERS: PCP Family Medicine; Referring Provider Family Medicine; Visit Provider Physician Assistant
DX: I73.9 Peripheral vascular disease, unspecified (principal); L97.322 Non-pressure chronic ulcer of left ankle with fat layer exposed; R60.0 Localized edema; F17.200 Nicotine dependence, unspecified, uncomplicated; L20.9 Atopic dermatitis, unspecified
CPT/HCPCS: 11042; 99213

== ENCOUNTER → 2025-02-01 10:42 | Outpatient (CLI) | payer MEDICARE, MEDICAID, SELFPAY ==
[2024-12-04 13:03] VITALS: PULSE 49; RESP 19; O2SAT 94
== END ==
PROVIDERS: PCP Family Medicine; Referring Provider Family Medicine; Visit Provider Physician Assistant
DX: I73.9 Peripheral vascular disease, unspecified (principal); L97.322 Non-pressure chronic ulcer of left ankle with fat layer exposed; L98.8 Other specified disorders of the skin and subcutaneous tissue; L20.9 Atopic dermatitis, unspecified; Z72.0 Tobacco use
CPT/HCPCS: 11042; 99213

== ENCOUNTER → 2025-02-08 11:02 | Outpatient (CLI) | payer MEDICARE, MEDICAID, SELFPAY ==
[2024-12-04 13:03] VITALS: PULSE 49; RESP 19; O2SAT 94
== END ==
PROVIDERS: PCP Family Medicine; Referring Provider Family Medicine; Visit Provider Physician Assistant
DX: I73.9 Peripheral vascular disease, unspecified (principal); L97.322 Non-pressure chronic ulcer of left ankle with fat layer exposed; L20.9 Atopic dermatitis, unspecified; F17.200 Nicotine dependence, unspecified, uncomplicated
CPT/HCPCS: 11042; 99213

== ENCOUNTER → 2025-02-22 11:39 | Outpatient (CLI) | payer MEDICARE, SELFPAY ==
[2024-12-04 13:03] VITALS: PULSE 49; RESP 19; O2SAT 94
== END ==
LOC: WC 11:40
PROVIDERS: PCP Family Medicine; Referring Provider Family Medicine; Visit Provider Physician Assistant
DX: I73.9 Peripheral vascular disease, unspecified (principal); L97.322 Non-pressure chronic ulcer of left ankle with fat layer exposed; F17.200 Nicotine dependence, unspecified, uncomplicated; L20.9 Atopic dermatitis, unspecified
CPT/HCPCS: 97597; 99213

== ENCOUNTER → 2025-03-01 09:49 | Outpatient (CLI) | payer MEDICARE, MEDICAID, SELFPAY ==
[2024-12-04 13:03] VITALS: PULSE 49; RESP 19; O2SAT 94
== END ==
LOC: WC 09:55
PROVIDERS: PCP Family Medicine; Referring Provider Family Medicine; Visit Provider Physician Assistant
DX: I73.9 Peripheral vascular disease, unspecified (principal); L97.322 Non-pressure chronic ulcer of left ankle with fat layer exposed; S41.112A Laceration without foreign body of left upper arm, initial encounter; F17.200 Nicotine dependence, unspecified, uncomplicated
CPT/HCPCS: 11042; 99213

== ENCOUNTER → 2025-03-08 14:29 | Outpatient (CLI) | payer MEDICARE, MEDICAID, SELFPAY ==
[2024-12-04 13:03] VITALS: PULSE 49; RESP 19; O2SAT 94
== END ==
LOC: WC 14:31
PROVIDERS: PCP Family Medicine; Referring Provider Family Medicine; Visit Provider Physician Assistant
DX: S41.112A Laceration without foreign body of left upper arm, initial encounter (principal); I96 Gangrene, not elsewhere classified; L30.9 Dermatitis, unspecified; I10 Essential (primary) hypertension; F17.200 Nicotine dependence, unspecified, uncomplicated; Z79.01 Long term (current) use of anticoagulants; Z95.828 Presence of other vascular implants and grafts
CPT/HCPCS: 11042; 99213

== ENCOUNTER → 2025-03-15 12:17 | Outpatient (CLI) | payer MEDICARE, MEDICAID, SELFPAY ==
[2024-12-04 13:03] VITALS: PULSE 49; RESP 19; O2SAT 94
== END ==
LOC: WC 12:26
PROVIDERS: PCP Family Medicine; Referring Provider Family Medicine; Visit Provider Surgery
DX: S41.112D Laceration without foreign body of left upper arm, subsequent encounter (principal); F17.200 Nicotine dependence, unspecified, uncomplicated; I73.9 Peripheral vascular disease, unspecified
CPT/HCPCS: 99213

== ENCOUNTER 2025-03-29 05:46 | Emergency (ER) | payer MEDICARE, MEDICAID, SELFPAY ==
[2024-12-04 13:03] VITALS: PULSE 49; RESP 19; O2SAT 94
[2025-03-29] VITALS (7 sets, daily range): BP systolic 112–145; BP diastolic 54–84; PULSE 52–75; RESP 15–19; TEMP 36.8; O2SAT 96–100; BMI 17.7
--- NOTE | 2025-03-29 05:46 | ED.FALL ---
HPI - Fall General Chief Complaint: Trauma Stated Complaint: Fall, head lac Time Seen by Provider: 03/29/25 05:46 History of Present Illness HPI Narrative: Patient is a 69-year-old male from [facility] presenting via EMS for evaluation of fall, patient does take Plavix, COPD, comes into the ED for ground level fall. Patient states that he was getting last night at around 1:00 a.m. and mechanical trip and fall, no syncopal or presyncopal symptoms. States that he was seen here few months ago for the same and had his tetanus updated then. According to medics patient initially did not want to go but decided to come in due to the fact that they could not get the bleeding to stop at the facility. At time of evaluation patient A&O x4, moving all 4 extremities spontaneously, he is at his baseline, states a dull headache but denies any other symptoms such as visual disturbances chest pain shortness of breath fever chills nausea vomiting abdominal pain or any other GI/ symptoms time. Patient was able to stand bear weight [facility]. Related Data Home Medications ?Medication ?Instructions ?Recorded ?Confirmed cholecalciferol (vitamin D3) 50 50 mcg PO DAILY 08/22/23 03/20/25 mcg (2,000 unit) tablet (Vitamin D3) diphenhydramine-zinc acetate 2 applic topical 3XD PRN itch 08/22/23 03/20/25 %-0.1 % topical cream (Benadryl Extra Strength) tamsulosin 0.4 mg capsule 0.4 mg PO DAILY 08/22/23 03/20/25 testosterone 1 % (50 mg/5 gram) 1 packet transdermal DAILY 08/22/23 03/20/25 transdermal gel packet clotrimazole-betamethasone 1 1 applic topical ONCE 01/04/24 03/20/25 %-0.05 % topical cream doxycycline hyclate 100 mg capsule 100 mg PO BID 01/04/24 03/20/25 aspirin 81 mg chewable tablet 1 tab PO DAILY 07/25/24 03/20/25 atorvastatin 40 mg tablet 40 mg PO DAILY 07/25/24 03/20/25 loratadine 10 mg tablet 10 mg PO DAILY 07/25/24 03/20/25 clopidogrel 75 mg tablet 75 mg PO DAILY 03/20/25 03/20/25 lisinopril 10 mg tablet 10 mg PO DAILY 03/20/25 03/20/25 nifedipine 30 mg tablet,extended 30 mg PO DAILY 03/20/25 03/20/25 release Allergies Allergy/AdvReac Type Severity Reaction Status Date / Time No Known Drug Allergies Allergy Verified 03/29/25 05:59 Review of Systems Review of Systems Narrative: General: Positive ground level fall, Denies fever, chills, weight loss HEENT: Positive headache, positive laceration to the scalp, Denies eye drainage, eye irritation, head trauma, sore throat, voice change Cardiovascular: Denies any chest pain, palpitations, tachycardia Respiratory: Denies any shortness of breath, cough, wheeze, stridor GI/: Denies any abdominal pain, nausea, vomiting, diarrhea, bright red blood per rectum, melanotic stools, urinary frequency, urinary retention, dysuria, hematuria MSK: Denies any joint pain, muscle pains, swelling Skin: Denies any rashes, lesions, discoloration Neuro: Denies any headache, lightheadedness, dizziness, fainting, weakness Psych: Denies SI/HI Patient History Medical History Closed L4 vertebral fracture COPD (chronic obstructive pulmonary disease) Facet arthropathy, lumbar History of substance abuse Hypertension Lumbar post-laminectomy syndrome Lumbar stenosis Lumbar stenosis with neurogenic claudication Social History Smoking Status: Current every day smoker tobacco type: cigarettes alcohol intake frequency: 0-2 drinks per day Exam Narrative Exam Narrative: General: Cooperative, well-developed, not in acute distress HEENT: 0.5cm laceration noted to the top left area of scalp, no foreign body, no palpable gross step-offs, PERRLA, normal sclera, eyelids normal Neck: Active full range of motion, atraumatic Chest: Normal to inspection, negative crepitus, no overlying erythema ecchymosis Respiratory: Normal respiratory effort, not in acute respiratory distress, clear to auscultation bilaterally negative cough, wheeze, tachypnea, rhonchi, rales Cardiology: Regular rate rhythm negative gallop, murmur, rubs GI/: No tenderness to palpation, soft, non rigid, normal to inspection, exam deferred MSK: Full active range of motion in all 4 extremities, atraumatic, no tenderness to palpation of any bony prominences, patient neurovascularly intact to bilateral upper and lower extremities, patient does have a history of scoliosis, Skin: No rashes or lesions noted Neuro: Alert awake oriented x3, moves all 4 extremities spontaneously, cranial nerves intact, able to answer all questions appropriately follows commands appropriately Psych: Cooperative, negative suicidal or homicidal ideations Initial Vital Signs Initial Vital Signs: Vital Signs Temperature 98.3 F 03/29/25 05:59 Pulse Rate 75 03/29/25 05:59 Respiratory Rate 15 03/29/25 05:59 Blood Pressure 135/84 03/29/25 05:59 Pulse Oximetry 99 03/29/25 05:59 Oxygen Delivery Method Room Air 03/29/25 05:59 Procedures Laceration Repair Laceration 1: Time of procedure: 06:01 Site: scalp Size (cm): 0.5 Description: linear Depth: simple, single layer Skin layer closed with: jaida (2) Course Orders Ordered: ED Orders 03/29/25 05:58 CT cervical spine wo con Stat CT head/brain wo con Stat Discontinued Medications Oxycodone/Acetaminophen (Oxycodone/Acetaminophen 5/325 Tablet) 1 tab PO NOW ONE Stop: 03/29/25 05:59 Last Admin: 03/29/25 06:28 Dose: 1 tab Documented By: RALPH Vital Signs Vital signs: Vital Signs - 8 hr 03/29/25 05:59 Temperature 98.3 F Pulse Rate 75 Respiratory Rate 15 Blood Pressure 135/84 Pulse Oximetry 99 Oxygen Delivery Method Room Air MDM - Fall Differential Diagnosis Differential diagnosis: Likely other (Fracture, contusion, laceration, avulsion) Imaging Data CT scan - head: Radiologist's Impression: Preliminary read showing no acute intracranial abnormality CT - cervical spine: Radiologist's Impression: Preliminary read showing spondylitic changes of the cervical spine without acute traumatic injury MDM Narrative Medical decision making narrative: Patient is a 69-year-old male with a past medical history of hypertension, COPD, hyperlipidemia, comes into the ED via EMS from [facility] for evaluation of ground level fall. Patient states he was getting up and fell forward tripped, no syncopal or presyncopal symptoms before after. Patient states that he is on Plavix. At time of evaluation NIH of 0 no focal deficits, it was noted that he had a 0.5 cm laceration of the top of his scalp, this was repaired and bleeding was controlled with 2 jaida. Patient not complaining of any other symptoms. Patient tetanus up-to-date. Patient had CT scan of the head and neck performed here in the emergency department. CT of the head without any acute intracranial abnormalities. CT cervical neck without any acute fractures, patient was instructed to follow up with primary care in outpatient setting, strict return precautions given he verbalized understanding of this and agrees to being discharged home with outpatient follow up Discharge Plan Departure Patient Disposition: Home Clinical Impression: Ground-level fall, Laceration of scalp Instructions: DI for Laceration Repair -- [place] Activity Restrictions/Additional Instructions: You have 2 jaida that need to be removed in approximately 1 week Please read the discharge instructions sheet carefully and bring all papers to all doctor follow-up visits, as it may contain information that your doctor may want to see. Disease processes change and evolve, if your symptoms worsen or if you develop any new symptoms that are concerning to you please return for evaluation. Your evaluation today does not show any evidence of any life-threatening/serious illnesses requiring admission to the hospital or surgery. Please follow-up with your doctor for re-evaluation in approximately 1 day. Seek immediate medical attention for any worrisome symptoms. *If you do not have a primary care provider please contact the [facility] Resource line at [phone]. They will ask some questions about your medical history and help get you set up with a doctor in the community. Prescriptions: No Action nifedipine 30 mg tablet extended release 30 mg PO DAILY clopidogrel 75 mg tablet 75 mg PO DAILY lisinopril 10 mg tablet 10 mg PO DAILY tamsulosin 0.4 mg capsule 0.4 mg PO DAILY testosterone 1 % (50 mg/5 gram) gel in packet 1 packet transdermal DAILY Patient Comments: [NO ORIGINAL SIG] cholecalciferol (vitamin D3) [Vitamin D3] 50 mcg (2,000 unit) tablet 50 mcg PO DAILY Benadryl Extra Strength 2-0.1 % cream topical 3XD PRN (Reason: itch) doxycycline hyclate 100 mg capsule 100 mg PO BID clotrimazole-betamethasone 1-0.05 % cream 1 applic topical ONCE atorvastatin 40 mg tablet 40 mg PO DAILY loratadine 10 mg tablet 10 mg PO DAILY aspirin 81 mg tablet,chewable 1 tab PO DAILY Referrals: Roseline Moss DO [Primary Care Provider, Family Practice] Stand Alone Forms: Patient Portal/API
--- NOTE | 2025-03-29 05:58 | DI.CT.S_ITS ---
PROCEDURE: CT HEAD/BRAIN WO CON INDICATIONS: Trauma TECHNIQUE: Noncontrast 4.5 mm thick angled axial sections acquired from the foramen magnum to the vertex, with coronal and sagittal reformats. For radiation dose reduction, the following was used: automated exposure control, adjustment of mA and/or kV according to patient size. COMPARISON: [facility], CT, CT HEAD/BRAIN WO CON, 12/27/2024, 12:47. FINDINGS: Image quality: Diagnostic. CSF spaces: Basal cisterns are patent. No extra-axial fluid collections. The ventricles are symmetric in size and shape. Brain: No intracranial bleeds or mass effect. There is cerebral volume loss, with resultant ventricular and sulcal prominence. There are periventricular and deep white matter chronic small vessel ischemic changes. There is intracranial internal carotid artery atherosclerosis. Skull and face: Calvarium and visualized facial bones appear intact, without suspicious lesions. Sinuses: Visualized sinuses and mastoids are clear. IMPRESSION: No acute intracranial pathology. No discrepancies. Dictated by: Samson Biggs M.D. on 03/29/2025 at 7:53 Approved by: Samson Biggs M.D. on 03/29/2025 at 7:53
--- NOTE | 2025-03-29 05:58 | DI.CT.S_ITS ---
PROCEDURE: CT CERVICAL SPINE WO CON INDICATIONS: trauma TECHNIQUE: Noncontrast 3 mm thick sections acquired from the skull base to the T4 level. Sagittal and coronal reformats were then constructed. For radiation dose reduction, the following was used: automated exposure control, adjustment of mA and/or kV according to patient size. COMPARISON: [facility], CT, CT CERVICAL SPINE WO CON, 12/27/2024, 12:47. FINDINGS: Image quality: Excellent. Bones: No fractures or dislocations. Loss of disc height, degenerative endplate changes and bilateral facet hypertrophic changes are noted throughout cervical spine. Visualized superior ribs are intact. Soft tissues: Prevertebral soft tissues are normal in thickness. No paravertebral hematomas. No apical pneumothoraces. IMPRESSION: 1. No displaced fracture or traumatic subluxation. 2. [id number] degenerative disc disease throughout cervical spine not significantly changed from prior study. No discrepancies. Dictated by: Samson Biggs M.D. on 03/29/2025 at 7:53 Approved by: Samson Biggs M.D. on 03/29/2025 at 7:56
[2025-03-29] MEDS: OXYCODONE/ACETAMINOPHEN 5/325 TABLET 1 TAB PO (06:28)
== END 2025-03-29 07:48 | disposition home or self-care (01) ==
PROVIDERS: Emergency Provider Student in an Organized Health Care Education/Training Program; PCP Family Medicine
DX: S01.01XA Laceration without foreign body of scalp, initial encounter (principal); Z79.01 Long term (current) use of anticoagulants; W18.30XA Fall on same level, unspecified, initial encounter; R51.9 Headache, unspecified
CPT/HCPCS: 12001; 70450; 72125; 99284

== ENCOUNTER 2025-04-16 12:57 | Outpatient (CLI) | payer MEDICARE, MEDICAID, SELFPAY ==
[2024-12-04 13:03] VITALS: PULSE 49; RESP 19; O2SAT 94
[2025-04-16] VITALS (8 sets, daily range): BP systolic 128–147; BP diastolic 59–81; PULSE 52–60; RESP 14–16; TEMP 36.6; O2SAT 95–100
[2025-04-16] MEDS: MIDAZOLAM 2 MG/2 ML VIAL 1 MG IV (14:09)
[2025-04-16] MEDS: DEXAMETHASONE 10 MG/ML VIAL INJ (14:13)
[2025-04-16] MEDS: BUPIVACAINE 0.25% (PF) VIAL 2 ML INJ (14:14)
[2025-04-16] MEDS: BETAMETHASONE 30 MG/5 ML MDV 12 MG INJ (14:15)
--- NOTE | 2025-04-16 14:22 | P.PCN_ITS ---
Date/Time/Diagnoses Date of procedure: 04/16/25 Time of procedure: 14:22 Pre-procedure diagnosis: 1. HNP WITH RADICULAR FEATURES, 2. MULTILEVEL CENTRAL STENOSIS, Post-procedure diagnosis: same Procedure Notes Procedure: 1. FLUOROSCOPICALLY GUIDED CONTRAST CONTROLLED INTERLAMINAR EPIDURAL STEROID INJECTION -L4/5 Indications: Jovani is referred by Dr. Moss for treatment of Bilateral Foraminal Stenosis R>L LE symptoms. Physician: Oleksandr Young Total Fluoroscopy time (seconds): 8 Total sedation minutes: 10 Complications: none Procedure in detail & Post-procedure care: FINDINGS Multilevel Central Spinal Stenosis with Nerve Root Compression DESCRIPTION OF PROCEDURE Fluoroscopically guided, contrast-controlled L4/5 translaminar epidural steroid injection. Following review of allergy and review of potential side effects and complications, including, but not necessarily limited to, infection, allergic reaction, local tissue breakdown, temporary as well as permanent nerve injury, paralysis, stroke and possible , the patient indicated that the patient understood and agreed to proceed. An informed consent document was signed by the patient, witnessed by a nurse, and placed in the patient's chart. Additionally, other treatment options including modalities, medications, and physical therapy were reviewed with the patient. After review of previous anaesthesic history and IV conscious sedation the patient was deemed safe to proceed with today?s procedure with IV conscious sedation as ASA class II designation. Safety time-out was performed to confirm patient ID, procedure to be performed and site of procedure. IV sedation was accomplished with a combination of 2mg of Versed was administered by the RN after DO order, titrated to patient comfort during the course of the procedure while the patient remained responsive to all verbal commands In the prone position, following sterile prep and drape of the lumbar region, the L4/5 translaminar space was identified fluoroscopically. The skin was anesthetized via a 25-gauge, 1.5inch needle with 1% lidocaine solution. At this point, a 22-gauge short bevel spinal needle was atraumatically introduced and advanced under fluoroscopic guidance into the region of the L4/5 translaminar space. Depth was confirmed on lateral view. Radiological data, including multiple fluoroscopic views of the lumbar spine, reveal a spinal needle at the L4/5 translaminar space. Lateral views then show placement of the needle in the epidural space. Subsequent views show contrast material flowing superiorly and inferiorly in the epidural space. No vascular or intrathecal uptake is observed. At this point, using loss of resistance technique with saline and air, the epidural space was entered. This was confirmed following negative aspiration with injection of approximately 1.5cc of Isovue 200, showing excellent epidural flow without vascular or intrathecal uptake. At this point, 1cc of 0.25% marcaine solution combined with 3cc or 10mg of dexamethasone and 12mg betamethasone was injected without incident. The patient tolerated the procedure well without signs or symptoms of complications prior to transfer to the recovery area continued monitoring without incident. The patient was then transferred to the recovery area where they were observed for an appropriate period of time after the injection. The patient reported a VAS score of 7 prior to the procedure and a post- procedure VAS of 1. POST OP INSTRUCTIONS The patient was provided a Pain Log to continue to record their response to the target-specific procedure prior to follow-up visit with their referring physician. Additionally, specific post-injection care instructions and a contact number to our office were provided if concerns arise regarding possible complications associated with the procedure are suspected.
== END 2025-04-16 14:40 | disposition home or self-care (01) ==
LOC: RAD 12:58
PROVIDERS: PCP Family Medicine; Referring Provider Family Medicine; Visit Provider Physical Medicine & Rehabilitation
DX: M51.16 Intervertebral disc disorders with radiculopathy, lumbar region (principal); M48.061 Spinal stenosis, lumbar region without neurogenic claudication
CPT/HCPCS: 62323; 99152; J0702; J1100; J2250

== ENCOUNTER → 2025-06-27 11:10 | Outpatient (CLI) | payer MEDICARE, MEDICAID, SELFPAY ==
[2024-12-04 13:03] VITALS: PULSE 49; RESP 19; O2SAT 94
== END ==
LOC: WC 11:12
PROVIDERS: Family Provider Family Medicine; PCP Family Medicine; Referring Provider Family Medicine; Visit Provider Surgery
DX: R21 Rash and other nonspecific skin eruption (principal); L81.9 Disorder of pigmentation, unspecified; L85.3 Xerosis cutis; R60.0 Localized edema; I73.9 Peripheral vascular disease, unspecified; Z72.0 Tobacco use; I10 Essential (primary) hypertension; Z79.01 Long term (current) use of anticoagulants; Z95.820 Peripheral vascular angioplasty status with implants and grafts; Z87.2 Personal history of diseases of the skin and subcutaneous tissue; F19.11 Other psychoactive substance abuse, in remission
CPT/HCPCS: 99213; 99215

== ENCOUNTER → 2025-07-11 11:38 | Outpatient (CLI) | payer MEDICARE, MEDICAID, SELFPAY ==
[2024-12-04 13:03] VITALS: PULSE 49; RESP 19; O2SAT 94
== END ==
LOC: WC 11:40
PROVIDERS: Family Provider Family Medicine; PCP Family Medicine; Referring Provider Family Medicine; Visit Provider Surgery
DX: L03.115 Cellulitis of right lower limb (principal); L03.116 Cellulitis of left lower limb; R21 Rash and other nonspecific skin eruption; I73.9 Peripheral vascular disease, unspecified; Z79.2 Long term (current) use of antibiotics
CPT/HCPCS: 99213

== ENCOUNTER → 2025-07-18 10:18 | Outpatient (CLI) | payer MEDICARE, MEDICAID, SELFPAY ==
[2024-12-04 13:03] VITALS: PULSE 49; RESP 19; O2SAT 94
== END ==
LOC: WC 10:34
PROVIDERS: Family Provider Family Medicine; PCP Family Medicine; Referring Provider Family Medicine; Visit Provider Surgery
DX: R60.0 Localized edema (principal); I73.9 Peripheral vascular disease, unspecified; Z87.2 Personal history of diseases of the skin and subcutaneous tissue; Z79.01 Long term (current) use of anticoagulants; Z72.0 Tobacco use; Z95.820 Peripheral vascular angioplasty status with implants and grafts
CPT/HCPCS: 99213